=== PATIENT | male | born 1950 | race Caucasian/White ===

== ENCOUNTER 2018-07-20 19:41 | Inpatient (IN) | payer MEDICARE ==
--- NOTE | 2018-07-20 20:08 | ED ---
Extremity Problem HPI - General Chief complaint: Extremity Problem,Nontraumatic Stated complaint: R Leg Swelling/Redness Time Seen by Provider: 07/20/18 19:55 Source: patient, RN notes reviewed, old records reviewed Mode of arrival: ambulatory Limitations: no limitations - History of Present Illness Initial comments: This is a 5-year-old male the ER for evaluation. Patient coming of drainage from the right lower extremity pain in his right leg. Patient has continued symptoms currently. Symptoms for 3-4 days. States he does have severe eczema and this spreads from his eczema reaction. He has been admitted hospitalizations before. He has had episodic fever like symptoms with chills and sweating. No other significant complaints MD Complaint: extremity pain, extremity swelling, other (erythema) -: days(s) Location: right, lower extremity History of Same: Yes -: Yes fever Radiation: proximal Severity scale (1-10): 7 Quality: aching Consistency: constant Improves with: nothing Worsens with: nothing Associated Symptoms: fever, rash - Related Data Home Medications Medication Instructions Recorded Confirmed Aspirin 325 mg PO DAILY 10/21/13 07/20/18 Atorvastatin [Lipitor] 80 mg PO HS 10/21/13 07/20/18 Loperamide [Imodium] 2 mg PO DIRECTED 10/21/13 07/20/18 Metoprolol Tartrate [Lopressor] 25 mg PO BID 10/21/13 07/20/18 Nitroglycerin Sl Tabs [Nitrostat] 0.4 mg SL Q5M PRN 10/21/13 07/20/18 buPROPion SR [Wellbutrin SR] 150 mg PO BID 10/21/13 07/20/18 Sertraline [Zoloft] 50 mg PO DAILY 07/20/18 07/20/18 Allergies Allergy/AdvReac Type Severity Reaction Status Date / Time perfume Allergy Rash/Hives Verified 07/20/18 20:56 Review of Systems ROS Statement: Those systems with pertinent positive or pertinent negative responses have been documented in the HPI. ROS Other: All systems not noted in ROS Statement are negative. Past Medical History Past Medical History: Coronary Artery Disease (CAD), Chest Pain / Angina, GERD/ Reflux, Hypertension, Pneumonia Additional Past Medical History / Comment(s): CHRONIC DIARRHEA, DIVERTICULI History of Any Multi-Drug Resistant Organisms: None Reported Past Surgical History: Heart Catheterization With Stent, Hernia Repair Additional Past Surgical History / Comment(s): ARY INGUINAL HERNIA REPAIR, TENDON REPAIR RIGHT [place]ING[place], [place] 2008, STENT OCTOBER 2008, NOVEMBER 2008, JAN 2010 (STENT REPLACED),FEB 2013 Past Anesthesia/Blood Transfusion Reactions: No Reported Reaction Date of Last Stent Placement:: 02/2013 Past Psychological History: Depression Smoking Status: Former smoker Past Alcohol Use History: Occasional Past Drug Use History: None Reported General Exam Limitations: no limitations General appearance: alert, in no apparent distress Head exam: Present: atraumatic, normocephalic, normal inspection Eye exam: Present: normal appearance, PERRL, EOMI. Absent: scleral icterus, conjunctival injection, periorbital swelling ENT exam: Present: normal exam, mucous membranes moist Neck exam: Present: normal inspection. Absent: tenderness, meningismus, lymphadenopathy Respiratory exam: Present: normal lung sounds bilaterally. Absent: respiratory distress, wheezes, rales, rhonchi, stridor Cardiovascular Exam: Present: regular rate, normal rhythm, normal heart sounds. Absent: systolic murmur, diastolic murmur, rubs, gallop, clicks GI/Abdominal exam: Present: soft, normal bowel sounds. Absent: distended, tenderness, guarding, rebound, rigid Extremities exam: Present: normal inspection, full ROM, normal capillary refill , other (Vital extremity cellulitis, finally demarcated area with intense erythema with weeping). Absent: tenderness, pedal edema, joint swelling, calf tenderness Back exam: Present: normal inspection Neurological exam: Present: alert, oriented X3, CN II-XII intact Psychiatric exam: Present: normal affect, normal mood Skin exam: Present: warm, dry, intact, normal color. Absent: rash Course Vital Signs 07/20/18 19:49 Temperature 98.2 F Pulse Rate 89 Respiratory 16 Rate Blood Pressure 106/72 O2 Sat by Pulse 97 Oximetry - Reevaluation(s) Reevaluation #1: 07/20/18 21:13 Record reviewed with history of similar presentation Reevaluation #2: 07/20/18 21:13 Patient has pain control currently significant weeping of right lower extremity Medical Decision Making - Medical Decision Making 68 male the ER for evaluation, positive significant right lower leg right lower extremity cellulitis whole anterior leg. Patient is slightly demarcated areas of infection. Patient be admitted for IV antibiotics - Lab Data Result diagrams: 07/20/18 20:32 07/20/18 20:32 Lab Results 07/20/18 07/20/18 07/20/18 Range/Units 20:32 20:32 20:32 WBC 8.5 (3.8-10.6) k/uL RBC 4.73 (4.30-5.90) m/uL Hgb 14.7 (13.0-17.5) gm/dL Hct 45.3 (39.0-53.0) % MCV 95.8 (80.0-100.0) fL MCH 31.0 (25.0-35.0) pg MCHC 32.4 (31.0-37.0) g/dL RDW 13.1 (11.5-15.5) % Plt Count 259 (150-450) k/uL Neutrophils % 78 % Lymphocytes % 12 % Monocytes % 6 % Eosinophils % 3 % Basophils % 1 % Neutrophils # 6.6 (1.3-7.7) k/uL Lymphocytes # 1.0 (1.0-4.8) k/uL Monocytes # 0.5 (0-1.0) k/uL Eosinophils # 0.2 (0-0.7) k/uL Basophils # 0.1 (0-0.2) k/uL Sodium 139 (137-145) mmol/L Potassium 4.2 (3.5-5.1) mmol/L Chloride 106 (98-107) mmol/L Carbon Dioxide 25 (22-30) mmol/L Anion Gap 8 mmol/L BUN 23 H (9-20) mg/dL Creatinine 1.32 H (0.66-1.25) mg/dL Est GFR (CKD-EPI)AfAm 63 (>60 ml/min/1.73 sqM) Est GFR (CKD-EPI)NonAf 55 (>60 ml/min/1.73 sqM) Glucose 104 H (74-99) mg/dL Plasma Lactic Acid Romain 1.4 (0.7-2.0) mmol/L Calcium 10.2 (8.4-10.2) mg/dL Phosphorus 3.0 (2.5-4.5) mg/dL Magnesium 1.6 (1.6-2.3) mg/dL Total Bilirubin 0.5 (0.2-1.3) mg/dL AST 31 (17-59) U/L ALT 51 (21-72) U/L Alkaline Phosphatase 76 (38-126) U/L Total Protein 6.9 (6.3-8.2) g/dL Albumin 4.2 (3.5-5.0) g/dL Disposition Clinical Impression: Cellulitis of right leg Disposition: ADMITTED IP TO THIS HOSP Condition: Fair Is patient prescribed a controlled substance at d/c from ED?: No Referrals: Neal Knowles DO [Primary Care Provider] - 1-2 days
[2018-07-20] MEDS ORDERED: SODIUM CHLORIDE 0.9% 1,000 ML IV STA (20:23)
[2018-07-20] MEDS ORDERED: MORPHINE SULFATE 4 MG/ML SYRINGE IVP STA (20:23)
[2018-07-20] MEDS ORDERED: MORPHINE SULFATE 4 MG/ML SYRINGE IVP PRN (20:23)
[2018-07-20] MEDS ORDERED: VANCOMYCIN IV PER PHARMACY 1 EACH MISC MISCELLANE PRN (20:23)
[2018-07-20] MEDS ORDERED: VANCOMYCIN 1,500 MG in SODIUM CHLORIDE 0.9% 250 ML IVPB STA (20:33)
[2018-07-20 20:44] LABS: Basophils # (A) 0.1 k/uL (0-0.2); Basophils % (A) 1 %; Eosinophils # (A) 0.2 k/uL (0-0.7); Eosinophils % (A) 3 %; HCT 45.3 % (39.0-53.0); HGB 14.7 gm/dL (13.0-17.5); Lymphocytes % (A) 12 %; MCHC 32.4 g/dL (31.0-37.0); MCV 95.8 fL (80.0-100.0); Mean Platelet Volume 6.7; Monocytes # (A) 0.5 k/uL (0-1.0); Monocytes % (A) 6 %; Neutrophils # (A) 6.6 k/uL (1.3-7.7); Neutrophils % (A) 78 %; Platelet Count 259 k/uL (150-450); RBC 4.73 m/uL (4.30-5.90); RDW 13.1 % (11.5-15.5); WBC 8.5 k/uL (3.8-10.6)
[2018-07-20 20:57] LABS: Albumin 4.2 g/dL (3.5-5.0); Calcium 10.2 mg/dL (8.4-10.2); Magnesium 1.6 mg/dL (1.6-2.3); Potassium 4.2 mmol/L (3.5-5.1); Total Bilirubin 0.5 mg/dL (0.2-1.3); Total Protein 6.9 g/dL (6.3-8.2)
[2018-07-21] MEDS ORDERED: NITROGLYCERIN SL TABS 0.4 MG TAB SUBLINGUAL PRN (00:38)
[2018-07-21] MEDS ORDERED: LOPERAMIDE 2 MG CAP PO SCH (00:45)
[2018-07-21] MEDS: ATORVASTATIN 80 MG TAB PO SCH ×2 (01:28→21:19)
[2018-07-21] MEDS: METOPROLOL TARTRATE 25 MG TAB PO SCH ×3 (01:28→21:19)
[2018-07-21] MEDS: diphenhydrAMINE 25 MG CAP PO PRN ×3 (01:28→15:21)
[2018-07-21] MEDS: buPROPion SR 150 MG TABLET.ER PO SCH ×3 (01:28→21:19)
[2018-07-21] MEDS ORDERED: LOPERAMIDE 2 MG CAP PO PRN (01:29)
[2018-07-21] MEDS ORDERED: ENOXAPARIN 40 MG/0.4 ML SYRINGE SQ SCH (09:00)
[2018-07-21] MEDS ORDERED: ASPIRIN 325 MG TAB PO SCH (09:00)
[2018-07-21] MEDS ORDERED: VANCOMYCIN 1,250 MG in SODIUM CHLORIDE 0.9% 250 ML IVPB SCH (09:00)
[2018-07-21] MEDS: SERTRALINE 50 MG TAB PO SCH (09:16)
[2018-07-21] MEDS: diphenhydrAMINE 25 MG CAP PO SCH ×2 (17:00→21:19)
[2018-07-21] MEDS: TRIAMCINOLONE 0.1% CREAM 80 GM TUBE TOPICAL SCH ×2 (17:00→21:23)
[2018-07-21] MEDS: FAMOTIDINE 20 MG/2 ML VIAL IV SCH (17:05)
--- NOTE | 2018-07-21 17:06 | US ---
EXAMINATION TYPE: US venous doppler duplex LE RT DATE OF EXAM: 07/21/2018 4:41 PM COMPARISON: NONE CLINICAL HISTORY: r/o dvt. Right lower leg redness and swelling SIDE PERFORMED: Right TECHNIQUE: The lower extremity deep venous system is examined utilizing real time linear array sonog tobias with graded compression, doppler sonography and color-flow sonography. VESSELS IMAGED: External Iliac Vein (EIV) Common Femoral Vein Deep Femoral Vein Greater Saphenous Vein * Femoral Vein Popliteal Vein Proximal Calf Veins (* superficial vessels) Right Leg: Negative for DVT IMPRESSION: No evidence of deep venous thrombosis in the right leg.
[2018-07-21] MEDS: LACTATED RINGERS 1,000 ML IV SCH ×2 (17:09→23:30)
--- NOTE | 2018-07-21 17:21 | HP ---
HISTORY AND PHYSICAL DATE OF ADMISSION: 07/20/2018 DATE OF SERVICE: 07/21/2018 PRESENTING COMPLAINT: Right leg lesion. HISTORY OF PRESENTING COMPLAINT: This is a pleasant 68-year-old patient of Dr. Knowles whose chronic stable medical conditions include coronary artery disease with stents, GERD, hypertension, diverticulosis, depression. For about 2 weeks the patient has been having right lower extremity reaction which was gradually getting worse. It is very itchy. Denies any insect bites. Patient has pets at home, including cats, and has had them for a long time. Patient just started wearing new mela pants around the same time. There is no fever. No chills. Just a lot of itching. He also noted some swelling of the same lower extremity. REVIEW OF SYSTEMS: CONSTITUTIONAL: None. HEENT: None. RESPIRATORY: None. CARDIOVASCULAR: None. GASTROINTESTINAL: Heartburn. GENITOURINARY: None. MUSCULOSKELETAL: None. DERMATOLOGICAL: As above. LYMPHATICS: None. PSYCHIATRY: None. NEUROLOGICAL: None. Additionally, patient does have some intermittent chronic diarrhea. PAST MEDICAL HISTORY: 1. Coronary artery disease with 4 stents. 2. GERD. 3. Hypertension. 4. Chronic diarrhea. 5. Diverticulosis. 6. Depression. PAST SURGICAL HISTORY: 1. Cardiac cath with stent. 2. Bilateral inguinal hernia repair. 3. Tendon repair, right pinky finger. 4. [place] in 2008. Stenting in October and November of 2008 and January of 2010. Stent was replaced in February 2013. SOCIAL HISTORY: Patient did smoke in the past. Alcohol occasionally. Lives with his son. Retired. FAMILY HISTORY: Coronary artery disease, renal disease. HOME MEDICATIONS: 1. Aspirin 81 mg a day. 2. Wellbutrin SR 150 mg p.o. b.i.d. 3. Zoloft 50 mg p.o. daily. 4. Nitrostat 0.4 sublingually q.5 p.r.n. 5. Lopressor 25 mg p.o. b.i.d. 6. Imodium 2 mg p.o. as directed. 7. Lipitor 80 mg at bedtime. ALLERGIES: PERFUMES. PHYSICAL EXAMINATION: Temperature 98.2, pulse 59, respiration 16, blood pressure 106/72, pulse ox 97% on room air. GENERAL APPEARANCE: Average build. Lying in bed, not in distress. EYES: Pupils equal. Conjunctivae normal. HEENT: External appearance of nose and ears normal. Oral cavity normal. NECK: JVD not raised. Mass not palpable. RESPIRATORY: Effort normal. Lungs are clear. CARDIOVASCULAR: First and second sounds normal. No edema. ABDOMEN: Soft, non-tender. Liver and spleen not palpable. LYMPHATIC: No lymph node palpable in neck or axillae. PSYCHIATRY: Alert and oriented x3. Mood and affect normal. NEUROLOGICAL: Pupils equal. Cranial nerves grossly intact. Power and sensation grossly intact. EXTREMITIES: Right lower extremity has a brownish discoloration, rather demarcated from below the right knee down to just above the ankle. Also the right lower extremity is swollen. Patient has good peripheral pulses. Minimal tenderness. Minimal redness. INVESTIGATIONS: White count 8.5, hemoglobin 14.7, potassium 4.2, BUN 23, creatinine 1.32. Troponin I less than 0.012. ASSESSMENT: 1. Possible acute severe allergic reaction; could be contact dermatitis of the right lower extremity, which is very itchy, not much pain. No fever. No white count. There is some swelling. Only that patient has been wearing a new set of mela pants for the same duration, though I would also also expected other areas to be sensitive to the same. There may be an element of secondary cellulitis, but it does not appear to be the same. 2. Coronary artery disease with prior history of stent. 3. Gastroesophageal reflux disease. 4. Essential hypertension. 5. Colonic diverticulosis, asymptomatic. 6. Depression not otherwise specified. 7. Renal dysfunction. At this point it is not clear if it is acute or chronic. PLAN: Patient in the ER was started on IV ceftriaxone and vancomycin. Given the renal function, we will discontinue the vancomycin and start the patient on IV clindamycin. Will use hydrocortisone topical cream, use p.o. Benadryl and Pepcid. Will also do a Doppler ultrasound to rule out DVT in the right lower extremity, though unlikely. Home medications are resumed. Lovenox for DVT prophylaxis. ID was consulted. Care was discussed with the patient. Questions were answered. MMODL / TERELLN: [id number] /
[2018-07-21] MEDS ORDERED: CLINDAMYCIN 300 MG in DEXTROSE 5% IN WATER 50 ML IVPB SCH ×2 (18:00)
[2018-07-21 18:31] LABS: Appearance,Urine Clear (Clear); Bilirubin,Urine Negative (Negative); Blood,Urine Negative (Negative); Color,Urine Yellow; Glucose,Urine (UA) Negative (Negative); Ketones,Urine Negative (Negative); Leukocyte Esterase,Urine Negative (Negative); Nitrite,Urine Negative (Negative); PH, Urine 5.5 (5.0-8.0); Protein,Urine Negative (Negative); Specific Gravity,Urine 1.015 (1.001-1.035); Urobilinogen,Urine <2.0 mg/dL (<2.0)
[2018-07-21] MEDS: NYSTATIN 100,000UNIT/GM CREAM 30 GM TUBE TOPICAL SCH (21:19)
[2018-07-21] MEDS: ENOXAPARIN 40 MG/0.4 ML SYRINGE SQ SCH (21:21)
[2018-07-21] MEDS: ceFAZolin IN SWFI 2 GM/20 ML SYRINGE IVP SCH (23:30)
--- NOTE | 2018-07-22 07:46 | CONS ---
CONSULTATION DATE OF SERVICE: 07/21/2018. REASON FOR CONSULTATION: Right lower extremity cellulitis. HISTORY OF PRESENT ILLNESS: The patient is a 68-year-old male presented to the ER at [facility] last night with chief complaints of right leg swelling redness and itching that has been going on for more than a week now. The patient did mention that he had some problem with itching on his leg rash that he scratched. Subsequently started be becoming more swollen and red and painful. The patient describe the pain to be more of a dull aching pain 3 to 4/10, with associated severe itching to it as well. The patient did not recall using any medication soaps or detergent. Though did mention that the swelling and redness had started after he has scratched the area, no open wound or any drainage. The patient did have some chills with fever. No nausea, vomiting. No abdominal pain. No diarrhea. With these symptoms, the patient was evaluated by the ER physician. On arrival to the ER, the patient has been afebrile. His white count was significantly elevated. He did have lower extremity Doppler that was negative for DVT. The patient was started on Rocephin and vancomycin. Because of his a borderline kidney function, Vanco was discontinued. He was started on clindamycin. Infectious Disease was consulted for further recommendation regarding antibiotic therapy. REVIEW OF SYSTEMS: The positive points have been mentioned in HPI. Rest of the systems have been negative. PAST MEDICAL HISTORY: Gastroesophageal reflux disease, hypertension, pneumonia, coronary artery disease, diverticulosis. PAST SURGICAL HISTORY: PTCA with stent, hernia repair, right ring finger repair, tendon repair. SOCIAL HISTORY: Remote history of smoking. Occasionally drinks. No drug use. FAMILY HISTORY: No pertinent findings noticed. ALLERGIES: PERFUME. No known drug allergies. MEDICATION: Medications include the patient currently on aspirin, Lipitor, Wellbutrin SR, Benadryl, Lovenox, Pepcid, Imodium, Lopressor, Nitrostat, Zoloft. PHYSICAL EXAMINATION: Blood pressure 125/73 with a pulse of 60, temperature 97.3. He is 97% on room air. General description is an elderly male up in the bed in no distress. No tachypnea or accessory muscles of respiration use. HEENT: Shows no pallor or scleral icterus. Oral mucosa membranes are dry. No pharyngeal erythema or thrush. Neck: Tracheal central. No thyromegaly. Lungs unlabored breathing. Clear to auscultation anteriorly. No wheeze or crackles. Heart S1, S2. Regular rate and rhythm. ABDOMEN: Soft, no tenderness. No guarding or rigidity. Extremities: Right lower leg with diffuse erythematous rash with some scratch griffin. Currently with no open wound or any drainage, slightly warm to touch. Neurological: Patient is awake, alert, oriented times three. Mood and affect normal. LABS: Hemoglobin is 14.4, white count 8.5. BUN of 23, creatinine 1.32. DIAGNOSTIC IMPRESSION AND PLAN: 1. Patient with acute right lower extremity pain, swelling and redness started after the patient apparently scratched an area on his right leg with subsequent diffuse swelling and redness mostly involving the right anterior leg area. The possibility of however underlying cellulitis is not entirely excluded, likely from a gram- positive skin idalia such as strep, less likely MRSA infection. 2. Patient did have borderline kidney function and risk of nephrotoxicity from Vancomycin which has been discontinued. PLAN: 1. Discontinue Rocephin and clindamycin. 2. We will start the patient on cefazolin 2 g q.8 hours. 3. cream to the right leg . 4. Depending upon the clinical response as well as cultures, we will adjust the medication further if needed. Thank you for this consultation. We will follow this patient along with you. MMODL / IJN: [id number] /
[2018-07-22] MEDS ORDERED: VANCOMYCIN TROUGH DUE 1 EACH MISC MISCELLANE ONE (08:00)
[2018-07-22 09:05] LABS: Calcium 10.2 mg/dL (8.4-10.2); Potassium 4.8 mmol/L (3.5-5.1)
[2018-07-22] MEDS: ceFAZolin IN SWFI 2 GM/20 ML SYRINGE IVP SCH ×3 (09:14→23:55)
[2018-07-22] MEDS: LACTATED RINGERS 1,000 ML IV SCH ×2 (09:14→17:32)
[2018-07-22] MEDS: ASPIRIN 81 MG PO SCH (09:17)
[2018-07-22] MEDS: METOPROLOL TARTRATE 25 MG TAB PO SCH ×2 (09:17→20:11)
[2018-07-22] MEDS: SERTRALINE 50 MG TAB PO SCH (09:17)
[2018-07-22] MEDS: diphenhydrAMINE 25 MG CAP PO SCH ×3 (09:17→20:08)
[2018-07-22] MEDS: FAMOTIDINE 20 MG/2 ML VIAL IV SCH ×2 (09:18→20:08)
[2018-07-22] MEDS: NYSTATIN 100,000UNIT/GM CREAM 30 GM TUBE TOPICAL SCH ×2 (09:18→20:08)
[2018-07-22] MEDS: TRIAMCINOLONE 0.1% CREAM 80 GM TUBE TOPICAL SCH ×2 (09:18→20:08)
[2018-07-22] MEDS: buPROPion SR 150 MG TABLET.ER PO SCH ×2 (09:19→20:13)
--- NOTE | 2018-07-22 13:36 | US ---
EXAMINATION TYPE: US kidneys/renal and bladder DATE OF EXAM: 07/22/2018 COMPARISON: NONE CLINICAL HISTORY: 68-year-old male possible chronic renal failure. No symptoms per patient, CKD TECHNIQUE: Multiple sonographic images of the kidneys and bladder are obtained. FINDINGS: EXAM MEASUREMENTS: Right Kidney: 9.9 x 5.5 x 6.0 cm Left Kidney: 10.7 x 4.4 x 6.4 cm Right Kidney: No hydronephrosis. Left Kidney: No hydronephrosis. Bladder: wnl Bilateral Jets seen: yes IMPRESSION: No hydronephrosis.
--- NOTE | 2018-07-22 18:24 | PN ---
PROGRESS NOTE DATE OF SERVICE: 07/22/2018. REASON FOR FOLLOWUP: Right lower extremity cellulitis. INTERVAL HISTORY: The patient is currently afebrile. Patient is slightly feeling better. Overall pain and swelling to the right leg has slightly decreased. Currently with no open wound or any drainage. Denies having any chest pain, shortness of breath or cough. No abdominal pain or diarrhea. PHYSICAL EXAMINATION: Blood pressure 114/56 with pulse of 57, temperature 98.2. He is 96% on room air. General description is an elderly male lying in bed in no distress. Respiratory system: Unlabored breathing. Clear to auscultation anteriorly. Heart S1, S2. Regular rate and rhythm. Abdomen soft, no tenderness. Right leg did have swelling. The redness has slightly decreased in intensity. Some dry scaly skin. No drainage. LABS: BUN of 15, creatinine 1.05. Blood culture has been negative. DIAGNOSTIC IMPRESSION AND PLAN: Patient with acute right lower extremity swelling and redness with a question of possible eczematous reaction versus cellulitis, would favor cellulitis in view of the patient the area with resulting concern for the secondary infection likely from gram positive continue with Mycolog cream. Will add trever wrap to keep some of the swelling down. Continue with cefazolin while monitoring clinical course closely. Continue supportive care. MMODL / IJN: [id number] /
[2018-07-22] MEDS: ATORVASTATIN 80 MG TAB PO SCH (20:08)
[2018-07-22] MEDS: ENOXAPARIN 40 MG/0.4 ML SYRINGE SQ SCH (20:09)
--- NOTE | 2018-07-22 21:58 | PN ---
PROGRESS NOTE DATE OF SERVICE: July 22, 2018 PRESENTING COMPLAINT: Right leg lesion. INTERVAL HISTORY: This patient presented with what appears to be right lower extremity /allergic reaction with cellulitis. The patient is getting local steroid creams, IV Ancef. There is some improvement, itching a little bit better. Also getting antihistaminics. REVIEW OF SYSTEMS: Done for done for constitutional, cardiovascular, GI, pulmonary; relevant findings as above. CURRENT MEDICATIONS: Reviewed that include IV Ancef, p.o. Benadryl, Pepcid and Kenalog cream. PHYSICAL EXAMINATION: VITAL SIGNS: Temperature 98.2, pulse 67, respirations 16, blood pressure 112/66, pulse ox 96% on room air. GENERAL APPEARANCE: Lying in bed, awake. EYES: Pupils equal. Conjunctivae normal. NECK: JVD not raised. Mass not palpable. RESPIRATORY: Effort normal. LUNGS are clear. CARDIOVASCULAR: First and second sounds normal. No edema. ABDOMEN: Soft, nontender. Liver and spleen not palpable. PSYCHIATRY: Alert and oriented times three. Mood and affect normal. DERMATOLOGICAL: Discoloration of right lower extremity with some improvement. Slight decrease in edema. INVESTIGATIONS: Potassium 4.8. BUN and creatinine is normal. Blood cultures are negative till now. ASSESSMENT: 1. Acute severe allergic reaction, possibly contact dermatitis right lower extremity with secondary cellulitis with clinical response. 2. Coronary artery disease with prior history of stent. 3. Gastroesophageal reflux disease. 4. Essential hypertension. 5. Colonic diverticulosis, asymptomatic. 6. Depression, not otherwise specified. 7. Dehydration versus acute renal failure. PLAN: Continue current medication and treatment plan. Care was discussed with the patient. Encouraged to be out of bed. Repeat labs in the morning. DVT was ruled out in the right lower extremity and patient's ultrasound of the kidney was unremarkable. MMODL / IJN: [id number] /
[2018-07-23] MEDS: LACTATED RINGERS 1,000 ML IV SCH ×2 (00:06→09:13)
[2018-07-23] MEDS: ASPIRIN 81 MG PO SCH (09:12)
[2018-07-23] MEDS: buPROPion SR 150 MG TABLET.ER PO SCH ×2 (09:13→21:03)
[2018-07-23] MEDS: METOPROLOL TARTRATE 25 MG TAB PO SCH ×2 (09:13→21:03)
[2018-07-23] MEDS: ceFAZolin IN SWFI 2 GM/20 ML SYRINGE IVP SCH ×3 (09:13→23:07)
[2018-07-23] MEDS: FAMOTIDINE 20 MG TAB PO SCH ×2 (09:13→21:03)
[2018-07-23] MEDS: TRIAMCINOLONE 0.1% CREAM 80 GM TUBE TOPICAL SCH ×2 (09:13→21:05)
[2018-07-23] MEDS: SERTRALINE 50 MG TAB PO SCH (09:13)
[2018-07-23] MEDS: NYSTATIN 100,000UNIT/GM CREAM 30 GM TUBE TOPICAL SCH ×2 (09:13→21:05)
[2018-07-23] MEDS: diphenhydrAMINE 25 MG CAP PO SCH ×4 (09:19→21:03)
[2018-07-23 10:17] LABS: Basophils % (A) 0 %; Eosinophils # (A) 0.3 k/uL (0-0.7); Eosinophils % (A) 5 %; HCT 38.4 % (39.0-53.0); HGB 12.3 gm/dL (13.0-17.5); Lymphocytes # (A) 0.7 k/uL (1.0-4.8); Lymphocytes % (A) 10 %; MCH 30.8 pg (25.0-35.0); MCHC 31.9 g/dL (31.0-37.0); MCV 96.6 fL (80.0-100.0); Mean Platelet Volume 7.4; Monocytes # (A) 0.4 k/uL (0-1.0); Monocytes % (A) 5 %; Neutrophils % (A) 78 %; Platelet Count 164 k/uL (150-450); RBC 3.98 m/uL (4.30-5.90); RDW 13.1 % (11.5-15.5); WBC 6.4 k/uL (3.8-10.6)
[2018-07-23 10:26] LABS: Calcium 10.3 mg/dL (8.4-10.2); Potassium 4.7 mmol/L (3.5-5.1)
[2018-07-23] MEDS: CALAMINE/ZINC OXIDE LOTION 177 ML BTL TOPICAL SCH ×2 (13:21→21:05)
--- NOTE | 2018-07-23 16:17 | PN ---
PROGRESS NOTE DATE OF SERVICE: 07/23/2018 REASON FOR FOLLOWUP: Right lower extremity cellulitis. INTERVAL HISTORY: The patient is currently afebrile. He is breathing comfortably. Denies having any chest pain or any cough. No abdominal pain. Overall swelling and redness of the right leg have decreased. No open wound or any drainage. PHYSICAL EXAMINATION: Blood pressure 124/70 with a pulse of 64, temperature 97.6. He is 97% on room air. General description is an elderly male lying in bed in no distress. RESPIRATORY SYSTEM: Unlabored breathing. Clear to auscultation anteriorly. HEART: S1, S2. Regular rate and rhythm. ABDOMEN: Soft. No tenderness. Right leg swelling and redness slightly decreased. No drainage. LABS: Hemoglobin is 12.3, white count 6.4, BUN of 16, creatinine 1.13. DIAGNOSTIC IMPRESSION AND PLAN: Patient with right lower extremity swelling and redness with a question of possible eczematous reaction; dermatitis versus mild cellulitis. Continue local treatment with Mycolog cream and IV cefazolin. As the patient continues to improve, hopefully he can finish therapy with continuation of the Mycolog along with a short course of oral Keflex. Continue with Braden wrap to keep the swelling down. Continue supportive care. MMODL / IJN: [id number] /
[2018-07-23] MEDS: ATORVASTATIN 80 MG TAB PO SCH (21:03)
[2018-07-23] MEDS: ENOXAPARIN 40 MG/0.4 ML SYRINGE SQ SCH (21:03)
[2018-07-23] MEDS: methylPREDNISolone SOD SUCCI 125 MG/2 ML VIAL IV SCH (21:16)
--- NOTE | 2018-07-23 22:22 | PN ---
PROGRESS NOTE DATE OF SERVICE: 07/23/2018 PRESENTING COMPLAINT: Right leg rash. INTERVAL HISTORY: This patient presented with what appears to be right lower extremity allergic reaction with secondary cellulitis. Patient is getting local steroid cream and IV antibiotics. There has been some improvement. Other areas where he is scratching, including the left lower extremity, have more redness. Patient has been scratching quite a bit. Dose of antihistaminic was doubled yesterday. REVIEW OF SYSTEMS: Done for constitutional, cardiovascular, GI, pulmonary; relevant findings as above. CURRENT MEDICATIONS: Reviewed. They include IV Ancef. PHYSICAL EXAMINATION: Temperature 98, pulse 57, respiration 18, blood pressure 104/50, pulse ox 98% on room air. GENERAL APPEARANCE: Sitting up. Comfortable. EYES: Pupils equal. Conjunctivae normal. NECK: JVD not raised. Mass not palpable. RESPIRATORY: Effort normal. Lungs are clear. CARDIOVASCULAR: First and second sounds normal. No edema. ABDOMEN: Soft, non-tender. Liver and spleen not palpable. PSYCHIATRY: Alert and oriented x3. Mood and affect normal. EXTREMITIES: Right leg in a dressing. Left leg has areas of blotchy redness where he has scratched himself; also in the upper extremities. INVESTIGATIONS: White count 6.4, hemoglobin 12.3, potassium 4.7, BUN 16, creatinine 1.13. ASSESSMENT: 1. Acute severe allergic reaction, possibly contact dermatitis, right lower extremity with secondary cellulitis with some clinical response. 2. Coronary artery disease with prior history of stent. 3. Gastroesophageal reflux disease. 4. Essential hypertension. 5. Colonic diverticulosis, asymptomatic. 6. Depression not otherwise specified. 7. Acute renal failure, prerenal, improved with hydration. 8. Other areas of redness in the left lower extremity at the areas of scratching, more so like Koebner's phenomena. I discussed with Dr. Berry. At this point we decided to start the patient on IV Solu-Medrol at a heavy dose and see if that helps. Also I told the patient not to use soap on the body. I told him to wear gloves, which he is going to do, to prevent scratching, and also use calamine lotion. Will proceed from there. MMODL / IJN: [id number] /
[2018-07-24] MEDS: methylPREDNISolone SOD SUCCI 125 MG/2 ML VIAL IV SCH ×3 (05:25→20:34)
[2018-07-24] MEDS: diphenhydrAMINE 25 MG CAP PO SCH ×4 (08:15→20:35)
[2018-07-24] MEDS: FAMOTIDINE 20 MG TAB PO SCH ×2 (08:15→20:35)
[2018-07-24] MEDS: METOPROLOL TARTRATE 25 MG TAB PO SCH ×2 (08:15→20:34)
[2018-07-24] MEDS: ASPIRIN 81 MG PO SCH (08:15)
[2018-07-24] MEDS: SERTRALINE 50 MG TAB PO SCH (08:16)
[2018-07-24] MEDS: buPROPion SR 150 MG TABLET.ER PO SCH ×2 (08:16→20:35)
[2018-07-24] MEDS: ceFAZolin IN SWFI 2 GM/20 ML SYRINGE IVP SCH ×2 (08:16→15:06)
[2018-07-24] MEDS: CALAMINE/ZINC OXIDE LOTION 177 ML BTL TOPICAL SCH ×2 (08:17→20:35)
[2018-07-24] MEDS: TRIAMCINOLONE 0.1% CREAM 80 GM TUBE TOPICAL SCH ×2 (08:17→20:36)
[2018-07-24] MEDS: NYSTATIN 100,000UNIT/GM CREAM 30 GM TUBE TOPICAL SCH ×2 (08:17→20:36)
[2018-07-24 09:11] LABS: Calcium 10.7 mg/dL (8.4-10.2); Potassium 4.8 mmol/L (3.5-5.1)
[2018-07-24] MEDS: ENOXAPARIN 40 MG/0.4 ML SYRINGE SQ SCH (20:34)
[2018-07-24] MEDS: ATORVASTATIN 80 MG TAB PO SCH (20:35)
[2018-07-24] MEDS ORDERED: DOXYCYCLINE 100 MG CAP PO SCH (21:00)
--- NOTE | 2018-07-25 00:43 | PN ---
PROGRESS NOTE DATE OF SERVICE: 07/24/2018. REASON FOR FOLLOW UP: Question of right lower extremity cellulitis with generalized rash. INTERVAL HISTORY: The patient is currently afebrile. The right leg swelling and redness has decreased. However, the patient now has generalized maculopapular rash involving the left leg as well as trunk. The patient denies any difficulty swallowing, difficulty breathing, or any swelling and did not recall if the patient is starting any new medication. PHYSICAL EXAMINATION: Blood pressure 128/66 with a pulse of 80, temperature 98.7. He is 97% on room air. General description is an elderly male up in the bed in no distress. Respiratory system: Unlabored breathing. Clear to auscultation anteriorly. Heart S1, S2. Regular rate and rhythm. Abdomen soft. No tenderness. On the examination of the skin area shows maculopapular rash currently with no blisters or bullae formation or any cellulitis. LABS: Hemoglobin is 12.3, white count 6.4 with a BUN of 18, creatinine 1.06. DIAGNOSTIC IMPRESSION/PLAN: Patient admitted to the hospital with a right lower extremity cellulitis that was mostly generalized specific to the right leg area in this patient who however, now developing a generalized maculopapular rash more likely drug related versus other etiology. Dermatology has been consulted. Cefazolin will be discontinued. Currently on Solu-Medrol, transition to prednisone. Will monitor clinical course closely. Plan of care was discussed with the admitting physician. ARVIND / PAULETTE: [id number] /
--- NOTE | 2018-07-25 02:34 | PN ---
PROGRESS NOTE DATE OF SERVICE: July 24, 2018. PRESENTING COMPLAINT: Rash. INTERVAL HISTORY: This patient presented with what appeared to be allergic reaction primary to the right lower extremity and some possibly cellulitis, but the patient's rash is also now present on the left leg in the back. Discussed with Dr. Berry earlier today. Plan was discontinue with the antibiotics. Also to reduce the dose of steroids. Overall, patient is feeling better. Plan is now to consult Dermatology. REVIEW OF SYSTEMS: Done for constitutional, cardiovascular, GI, pulmonary, dermatological, relevant findings as above. Rash also present in the back and left lower extremity, especially where the patient can scratch. CURRENT MEDICATIONS: Reviewed. Antibiotics were discontinued. The patient is on IV Solu-Medrol, calamine lotion, Benadryl. PHYSICAL EXAMINATION: VITAL SIGNS: Temperature 98.7, pulse 83, respiratory rate 16, blood pressure 128/66. Pulse ox 97% on room air. GENERAL APPEARANCE: Sitting up, comfortable. EYES: Pupils equal. Conjunctivae normal. NECK: JVD not raised. Mass not palpable. RESPIRATORY: Effort normal. LUNGS are clear. CARDIOVASCULAR: 1st and 2nd sounds normal. No edema. ABDOMEN: Soft, nontender. Liver and spleen not palpable. DERMATOLOGICAL: Right leg in a dressing. Blotchy redness present in the left lower extremity and also in the back. INVESTIGATIONS: Potassium 4.8. BUN and creatinine is normal. ASSESSMENT: 1. Diffuse rash, appears to be allergic reaction. Also unclear if this is some sort of a Kobner's phenomena. 2. Secondary cellulitis appears to be less likely, after discussion with Dr. Berry, this has been discontinued the antibiotic. 3. Coronary artery disease with prior history of stent. 4. Gastroesophageal reflux disease. 5. Essential hypertension. 6. Colonic diverticulosis asymptomatic. 7. Depression, not otherwise specified. 8. Acute renal failure, prerenal, that is improved. PLAN: The patient's IV Solu-Medrol will be changed over to oral prednisone. We will consult Dermatology. Antibiotics have been discontinued. Follow. MMODL / IJN: [id number] /
[2018-07-25] MEDS: METOPROLOL TARTRATE 25 MG TAB PO SCH (08:28)
[2018-07-25] MEDS: ASPIRIN 81 MG PO SCH (08:28)
[2018-07-25] MEDS: FAMOTIDINE 20 MG TAB PO SCH (08:28)
[2018-07-25] MEDS: buPROPion SR 150 MG TABLET.ER PO SCH (08:28)
[2018-07-25] MEDS: SERTRALINE 50 MG TAB PO SCH (08:28)
[2018-07-25] MEDS: diphenhydrAMINE 25 MG CAP PO SCH ×2 (08:28→12:00)
[2018-07-25] MEDS: NYSTATIN 100,000UNIT/GM CREAM 30 GM TUBE TOPICAL SCH (08:28)
[2018-07-25] MEDS: TRIAMCINOLONE 0.1% CREAM 80 GM TUBE TOPICAL SCH (08:28)
[2018-07-25] MEDS: CALAMINE/ZINC OXIDE LOTION 177 ML BTL TOPICAL SCH (08:28)
[2018-07-25 08:30] LABS: Calcium 10.2 mg/dL (8.4-10.2); Potassium 4.4 mmol/L (3.5-5.1)
[2018-07-25] MEDS ORDERED: predniSONE 20 MG TAB PO SCH (09:00)
--- NOTE | 2018-07-25 13:35 | PN ---
PROGRESS NOTE DATE OF SERVICE: 07/25/2018 REASON FOR FOLLOWUP: Generalized maculopapular rash likely drug rash. INTERVAL HISTORY: The patient is currently afebrile. The patient is breathing comfortably. He denies any worsening of a rash compared to yesterday. No significant itching has been noticed. lotion and steroid the patient is on. No nausea, no vomiting. No abdominal pain. No diarrhea. PHYSICAL EXAMINATION: On examination, blood pressure is 145/67 with the pulse of 75, temperature 97.6. He is 99% on room air. General description is an elderly male up in the chair in no distress. RESPIRATORY SYSTEM: Unlabored breathing, clear to auscultation anteriorly. HEART: S1, S2. Regular rate and rhythm. ABDOMEN: Soft. SKIN EXAMINATION: Rash mostly decreased in intensity. No new rash or any blister formation. LABS: BUN of 25, creatinine is 1.07. Culture has been negative. DIAGNOSTIC IMPRESSION AND PLAN: Patient initially admitted to the hospital with right lower extremity rash and concern for cellulitis, now developing rash on the left as well as trunk area with concern for likely drug rash. The patient is currently on steroid therapy transition to oral. Continue with calamine lotion. Patient to follow up with Dermatology this Monday. Plan of care discussed with the admitting physician on the phone. Continue supportive care. MMODL / IJN: [id number] /
[2018-07-25 14:52] VITALS: BP 138/77; PULSE 67; RESP 20; TEMP 98
--- NOTE | 2018-07-26 07:21 | DS ---
DISCHARGE SUMMARY DATE OF ADMISSION: 07/20/2018 DATE OF DISCHARGE: 07/25/2018 FINAL DIAGNOSES: 1. Acute allergic reaction, primarily affecting the right leg and some also affecting the rest of the body could be a part of "Koebner's phenomena. 2. Secondary cellulitis, felt to be less likely. Antibiotics discontinued. 3. Coronary artery disease, prior history of stent. 4. Gastroesophageal reflux disease. 5. Essential hypertension. 6. Colonic diverticulosis, asymptomatic. 7. Depression, not otherwise specified. 8. Acute renal failure, prerenal, that is improved. HOSPITAL COURSE: This patient presented with a rash primary to the right lower extremity some other parts of the body too. Initially was given antibiotics as this was felt to be also cellulitic component, but treated with topical steroids and also IV steroids. 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 The patient will see Dermatology as an outpatient in 2 days time. The patient is told not to scratch himself. CONSULTATIONS: Dr. Berry from Infectious Disease. PHYSICAL EXAMINATION: On examination, temperature 98, pulse 67, respiration 20, blood pressure 138/77, pulse ox 98% on room air. LUNGS: Fair entry. Rash in the right lower extremity is improved. Redness which is blotchy, present on the left lower extremity and the back improving. INVESTIGATION: Potassium 4.4, creatinine 1.07. DISCHARGE MEDICATIONS: 1. Aspirin 81 mg a day. 2. Lipitor 80 mg q.h.s. 3. Imodium 2 mg p.r.n. 4. Lopressor 25 p.o. b.i.d. 5. Nitrostat 0.4 sublingual q.5 p.r.n. 6. Wellbutrin SR 150 mg p.o. b.i.d. 7. Zoloft 50 mg daily. 8. Calamine lotion topical b.i.d. 9. Kenalog 0.1% topical b.i.d. to the right leg. 10.Benadryl 25 mg q.6 p.r.n. 11.Prednisone taper. Follow up with Dr. Carlos Jerome on 07/27/2018. Follow up with Dr. Knowles on 07/30/2018. Discussion and discharge planning more than 35 minutes. MMODL / IJN: [id number] /
== END 2018-07-25 16:07 | disposition home health service (06) | DRG 607 ==
LOC: EC 19:41 → 4MS4W 21:16
PROVIDERS: ADMIT Hospitalist; ATTEND Hospitalist
DX: L27.0 Generalized skin eruption due to drugs and medicaments taken internally (principal); N17.9 Acute kidney failure, unspecified; Q81.8 Other epidermolysis bullosa; F32.9 Major depressive disorder, single episode, unspecified; I10 Essential (primary) hypertension; I25.10 Atherosclerotic heart disease of native coronary artery without angina pectoris; I25.2 Old myocardial infarction; K21.9 Gastro-esophageal reflux disease without esophagitis; K57.30 Diverticulosis of large intestine without perforation or abscess without bleeding; K52.9 Noninfective gastroenteritis and colitis, unspecified; Z79.82 Long term (current) use of aspirin; Z79.899 Other long term (current) drug therapy; Z87.891 Personal history of nicotine dependence; Z95.5 Presence of coronary angioplasty implant and graft; Z87.01 Personal history of pneumonia (recurrent); Z82.49 Family history of ischemic heart disease and other diseases of the circulatory system
CPT/HCPCS: 36415; 76770; 80048; 80053; 81003; 83605; 83735; 84100; 84484; 85025; 87040; 93005; 96365; 96375; 99284; 99285

== ENCOUNTER → 2019-06-28 | Outpatient (CLI) | payer MEDICARE ==
--- NOTE | 2019-06-28 10:48 | XR ---
EXAMINATION TYPE: XR chest 2V DATE OF EXAM: 06/28/2019 COMPARISON: 02/21/2013 TECHNIQUE: PA and lateral views submitted. HISTORY: Cough and congestion FINDINGS: Subsegmental changes at both lung bases. Hyperinflation suggests COPD. No overt failure. Heart size s table. Hypertrophic and degenerative change of the spine. No overt failure. IMPRESSION: 1. COPD with bilateral lower lobe infiltrate or atelectasis. Findings on the right are new compared t o the prior exam. Follow to resolution recommended. Correlate clinically.
== END | disposition home or self-care (01) ==
LOC: RADXRMAIN 10:28
PROVIDERS: ATTEND Family Medicine
DX: J98.11 Atelectasis (principal)
CPT/HCPCS: 71046

== ENCOUNTER → 2019-07-18 | Outpatient (CLI) | payer MEDICARE ==
--- NOTE | 2019-07-18 10:00 | XR ---
EXAMINATION TYPE: XR chest 2V DATE OF EXAM: 07/18/2019 COMPARISON: Chest x-ray July 18, 2019. HISTORY: COPD. TECHNIQUE: Frontal and lateral views of the chest are obtained. FINDINGS: There is background chronic emphysematous change with left greater than right bibasilar kali ear scarring and/or atelectasis. There is no pleural effusion or pneumothorax seen. The cardiac alejandro houette size remains within normal limits. Coronary artery stent in the proximal left circumflex dist ribution redemonstrated. The osseous structures are intact. IMPRESSION: Patchy left greater than right bibasilar linear scarring and/or atelectasis.
== END | disposition home or self-care (01) ==
LOC: RADXRMAIN 09:30
PROVIDERS: ATTEND Family Medicine
DX: J44.9 Chronic obstructive pulmonary disease, unspecified (principal)
CPT/HCPCS: 71046

== ENCOUNTER → 2019-12-13 | Outpatient (CLI) | payer MEDICARE ==
--- NOTE | 2019-12-13 13:20 | XR ---
EXAMINATION TYPE: XR chest 2V DATE OF EXAM: 12/13/2019 CLINICAL HISTORY: Abnormal lung findings TECHNIQUE: Frontal and lateral views of the chest are obtained. COMPARISON: Chest radiograph 07/18/2019 FINDINGS: The lungs are hyperexpanded. The cardiomediastinal silhouette is within normal limits for size. Pulmonary vasculature is normal. There is no focal air space opacity, pleural effusion, or pneu mothorax seen. There is a left basilar linear redemonstrated opacity likely atelectasis or scar. Ther e is also linear subsegmental atelectasis of the right lung base and left midlung. The osseous struct ures are intact. IMPRESSION: Areas of thinning linear subsegmental atelectasis versus scarring as above, for which no additional follow-up is indicated.
== END ==
LOC: RADXRMAIN 10:01
PROVIDERS: ATTEND Family Medicine
DX: R91.8 Other nonspecific abnormal finding of lung field (principal)
CPT/HCPCS: 71046

== ENCOUNTER → 2022-03-05 | Outpatient (CLI) | payer MEDICARE ==
--- NOTE | 2022-03-05 16:04 | MR ---
EXAMINATION TYPE: MR brain wo con DATE OF EXAM: 03/05/2022 3:18 PM COMPARISON: CT brain 01/28/2010. CLINICAL INDICATION:Male, 72 years old with history of gait abnormality; PHH, TECHNIQUE: Multi planar, multi sequence imaging was performed through the brain including: T1, T2, In version recovery, Diffusion weighted imaging, and gradient echo imaging. No gadolinium was given. FINDINGS: The herrera-white junctions, ventricular system, and cisterns appear unremarkable. Patchy areas of high T2 signal intensity are seen within the periventricular white matter. Remote lacunar injury within t he right caudate nucleus (series 401, image 20). Midline structures show no abnormality. Diffusion-we ighted imaging shows no evidence of restricted diffusion. The bone marrow signal is within normal limits. The globes are unremarkable. Minimal mucosal thickeni ng and retained secretions within the bilateral maxillary sinuses, left greater than right. Mild muco chauncey thickening of the ethmoid sinuses bilaterally. IMPRESSION: 1. No evidence of intracranial mass or acute/subacute infarct. 2. Remote right caudate lacunar injury. 3. Nnonspecific white matter changes, likely secondary to small vessel ischemic disease.
== END | disposition home or self-care (01) ==
LOC: RADMRIMAIN 14:10
PROVIDERS: ATTEND Nurse Practitioner Family
DX: I63.81 Other cerebral infarction due to occlusion or stenosis of small artery (principal); R26.9 Unspecified abnormalities of gait and mobility
CPT/HCPCS: 70551

== ENCOUNTER → 2022-03-09 | Outpatient (CLI) | payer MEDICARE ==
--- NOTE | 2022-03-09 11:56 | US ---
EXAMINATION TYPE: US carotid duplex BILAT DATE OF EXAM: 03/09/2022 COMPARISON: NONE CLINICAL HISTORY: R55 SYNCOPE. TECHNIQUE: Carotid duplex ultrasound examination. Indirect Doppler criteria was utilized. FINDINGS: EXAM MEASUREMENTS: RIGHT: Peak Systolic Velocity (PSV) cm/sec ----- Right CCA: 69.3 ----- Right ICA: 107.0 ----- Right ECA: 105.0 ICA/CCA ratio: 1.5 RIGHT: End Diastole cm/sec ----- Right CCA: 13.1 ----- Right ICA: 35.3 ----- Right ECA: 10.3 LEFT: Peak Systolic Velocity (PSV) cm/sec ----- Left CCA: 64.7 ----- Left ICA: 92.8 ----- Left ECA: 99.0 ICA/CCA ratio: 1.4 LEFT: End Diastole cm/sec ----- Left CCA: 15.6 ----- Left ICA: 40.9 ----- Left ECA: 8.6 VERTEBRALS (direction of flow): Right Vertebral: Antegrade Left Vertebral: Antegrade Rhythm: Arrhythmia No significant stenosis . Mild atherosclerotic calcification of the bilateral carotid bulbs. IMPRESSION: Mild bilateral atherosclerotic calcification of the carotid bulbs with no hemodynamically significant stenosis. Criteria for Assigning % of Stenosis / Diameter reduction (Estimation based on the indirect measurements of the internal carotid artery velocities (ICA PSV). 1. Normal (no stenosis)=ICA PSV < 125 cm/s: ratio < 2.0: ICA EDV<40 cm/s. 2. Less than 50% stenosis=ICA PSV < 125 cm/s: ratio < 2.0: ICA EDV<40 cm/s. 3. 50 to 69% stenosis=ICA PSV of 125 to 230 cm/s: ration 2.0 ? 4.0: ICA EDV 40-100 cm/s. 4. Greater than 70% stenosis to near occlusion= ICA PSV > 230 cm/s: ratio > 4.0: ICA EDV > 100 cm/s. 5. Near occlusion= ICA PSV velocities may be low or undetectable: variable ratio and ICA EDV. 6. Total occlusion=unable to detect flow.
== END | disposition home or self-care (01) ==
LOC: RADUSWWP 10:56
PROVIDERS: ATTEND Family Medicine
DX: I65.23 Occlusion and stenosis of bilateral carotid arteries (principal)
CPT/HCPCS: 93880

== ENCOUNTER 2022-03-11 08:23 | Inpatient (IN) | payer MEDICARE ==
[2022-03-11] MEDS ORDERED: DIPH,PERTUS(ACELL)TETVAC-LF 0.5 ML VIAL IM ONE (08:50)
--- NOTE | 2022-03-11 08:58 | ED ---
Fall HPI <Nohemi Monaco - Last Filed: 03/11/22 11:30> - General Source: patient, EMS, old records reviewed Mode of arrival: EMS - History of Present Illness MD Complaint: fall <AlbertoYvon - Last Filed: 03/11/22 12:54> - General Chief Complaint: Fall Stated Complaint: Fall Time Seen by Provider: 03/11/22 08:30 - History of Present Illness Initial Comments: 72-year-old male recent history of vertigo he's been being evaluated by his doctor outpatient which included an MRI. He states he fell twice today initial report he fell down stairs but he denies falling down stairs he fell in his room. Complains of left eyebrow and head pain some neck pain also complains of hip pain low back pain question will numbness to his lower extremities additionally he complains of bilateral ankle and foot pain. He denies any loss of function to any of the extremities. (Yvon Dominguez) - Related Data Home Medications Medication Instructions Recorded Confirmed Aspirin 81 mg PO DAILY 10/21/13 03/11/22 Atorvastatin [Lipitor] 80 mg PO HS 10/21/13 03/11/22 Metoprolol Tartrate [Lopressor] 25 mg PO DAILY 10/21/13 03/11/22 Nitroglycerin Sl Tabs [Nitrostat] 0.4 mg SL Q5M PRN 10/21/13 03/11/22 Esomeprazole Magnesium [NexIUM] 40 mg PO DAILY 03/11/22 03/11/22 Ketoconazole 2% Shampoo [Nizoral] 1 applic TOPICAL DAILY PRN 03/11/22 03/11/22 Multivit-Min/FA/Lycopen/Lutein 1 tab PO DAILY 03/11/22 03/11/22 [Centrum Silver Men Tablet] Tamsulosin HCl [Flomax] 0.4 mg PO DAILY 03/11/22 03/11/22 Triamcinolone 0.1% Ointment 1 applic TOPICAL Q48H PRN 03/11/22 03/11/22 [Kenalog 0.1% Ointment] buPROPion HCL [Wellbutrin SR] 200 mg PO BID 03/11/22 03/11/22 hydrALAZINE HCL [Apresoline] 25 mg PO DAILY 03/11/22 03/11/22 metroNIDAZOLE 0.75% CREAM 1 applic TOPICAL DAILY PRN 03/11/22 03/11/22 [Metrocream 0.75%] Allergies Allergy/AdvReac Type Severity Reaction Status Date / Time perfume Allergy Rash/Hives Verified 03/11/22 12:20 Review of Systems ROS Other: All systems not noted in ROS Statement are negative. <JacindaNohemi - Last Filed: 03/11/22 11:30> ROS Other: All systems not noted in ROS Statement are negative. <Yvon Dominguez - Last Filed: 03/11/22 12:54> ROS Statement: Those systems with pertinent positive or pertinent negative responses have been documented in the HPI. Past Medical History Past Medical History: Coronary Artery Disease (CAD), Chest Pain / Angina, GERD/Reflux, Hypertension, Myocardial Infarction (ID), Pneumonia Additional Past Medical History / Comment(s): Chronic diarrhea, diverticuli, ID 2008 Last Myocardial Infarction Date:: 2008 History of Any Multi-Drug Resistant Organisms: None Reported Past Surgical History: Heart Catheterization With Stent, Hernia Repair Additional Past Surgical History / Comment(s): Bilateral inguinal hernia repair, tendon repair right pinky finger, stent October 2008, November 2008, 2009 (stent replaced), 2012. Past Anesthesia/Blood Transfusion Reactions: No Reported Reaction Date of Last Stent Placement:: 02/2013 Past Psychological History: Depression Smoking Status: Former smoker Past Alcohol Use History: Occasional Past Drug Use History: None Reported - Past Family History Father Family Medical History: Coronary Artery Disease (CAD), Deep Vein Thrombosis (DVT), Renal Disease Additional Family Medical History / Comment(s): Dad's side of the family had blood clots. Mother Family Medical History: Diabetes Mellitus Additional Family Medical History / Comment(s): Hepatitis B Brother(s) Family Medical History: CVA/TIA, Renal Disease Additional Family Medical History / Comment(s): HIV <Yvon Dominguez - Last Filed: 03/11/22 12:54> General Exam Limitations: no limitations General appearance: alert, anxious Head exam: Present: normocephalic, other (Evidence of abrasion and ecchymosis and superficial laceration over left eyebrow no active bleeding at this time no step-off or crepitation) ENT exam: Present: mucous membranes dry Neck exam: Present: normal inspection, other (Cervical collar in place no stri nelson JVD or bruits mild tenderness palpation along the lateral neck musculature no spinous process tenderness) Respiratory exam: Present: normal lung sounds bilaterally. Absent: respiratory distress, wheezes, rales, rhonchi, stridor Cardiovascular Exam: Present: regular rate, normal rhythm, normal heart sounds. Absent: systolic murmur, diastolic murmur, rubs, gallop, clicks GI/Abdominal exam: Present: soft, normal bowel sounds. Absent: distended, tenderness, guarding, rebound, rigid, bruit, pulsatile mass Rectal exam: Present: deferred Extremities exam: Present: full ROM, tenderness, normal capillary refill, other (Ecchymosis seen over the feet is abrasion bilaterally with a few contusions or abrasions edema to the left lateral malleolus. No definitive step-off or crepitation.) Back exam: Present: normal inspection, tenderness (No spinous process tenderness) Neurological exam: Present: alert, oriented X3, CN II-XII intact Psychiatric exam: Present: normal affect, normal mood Skin exam: Present: warm, dry. Absent: intact <Yvon Dominguez - Last Filed: 03/11/22 12:54> - General Exam Comments Initial Comments: This a well-developed well-nourished awake alert oriented 4 male [place] Coma Scale of 15 he does have a cervical collar on. (Yvon Dominguez) Course Vital Signs 03/11/22 08:24 Temperature 97.0 F L Pulse Rate 81 Respiratory 16 Rate Blood Pressure 135/76 O2 Sat by Pulse 98 Oximetry Procedures - Laceration Laceration #1 Consent Obtained: verbal consent Indication: laceration Site: other (left eyebrow) Size (cm): 1 Description: linear Depth: simple, single layer Patient Tolerated Procedure: well, no complications <Nohemi Monaco - Last Filed: 03/11/22 11:30> - Laceration Laceration #1 Additional Comments: well approximated with exofin (Nohemi Monaco) Medical Decision Making - Lab Data Result diagrams: 03/11/22 08:51 03/11/22 08:51 <Nohemi Monaco - Last Filed: 03/11/22 11:30> - Lab Data Result diagrams: 03/11/22 08:51 03/11/22 08:51 - EKG Data -: EKG Interpreted by Me <Yvon Dominguez - Last Filed: 03/11/22 12:54> - Medical Decision Making Did discuss findings with the patient also with , patient will be admitted for inpatient evaluation and treatment frequent falls. Thrive dehydration and hypomagnesemia chronic atrial fibrillation. MRI done recently showed no acute processes there is some evidence of remote right caudate lacunar injury (Yvon Dominguez) - Lab Data Lab Results 03/11/22 03/11/22 03/11/22 Range/Units 08:51 08:51 08:51 WBC 10.0 (3.8-10.6) k/uL RBC 3.72 L (4.30-5.90) m/uL Hgb 11.6 L (13.0-17.5) gm/dL Hct 34.8 L (39.0-53.0) % MCV 93.6 (80.0-100.0) fL MCH 31.3 (25.0-35.0) pg MCHC 33.5 (31.0-37.0) g/dL RDW 13.3 (11.5-15.5) % Plt Count 157 (150-450) k/uL MPV 8.7 Neutrophils % 89 % Lymphocytes % 6 % Monocytes % 4 % Eosinophils % 1 % Basophils % 0 % Neutrophils # 8.9 H (1.3-7.7) k/uL Lymphocytes # 0.6 L (1.0-4.8) k/uL Monocytes # 0.4 (0-1.0) k/uL Eosinophils # 0.1 (0-0.7) k/uL Basophils # 0.0 (0-0.2) k/uL Sodium 141 (137-145) mmol/L Potassium 3.9 (3.5-5.1) mmol/L Chloride 110 H (98-107) mmol/L Carbon Dioxide 22 (22-30) mmol/L Anion Gap 9 mmol/L BUN 16 (9-20) mg/dL Creatinine 1.05 (0.66-1.25) mg/dL Est GFR (CKD-EPI)AfAm 81 (>60 ml/min/1.73 sqM) Est GFR (CKD-EPI)NonAf 70 (>60 ml/min/1.73 sqM) Glucose 144 H (74-99) mg/dL Calcium 9.5 (8.4-10.2) mg/dL Magnesium 1.3 L (1.6-2.3) mg/dL Total Bilirubin 0.6 (0.2-1.3) mg/dL AST 52 (17-59) U/L ALT 79 H (4-49) U/L Alkaline Phosphatase 88 (38-126) U/L Creatine Kinase 220 H (55-170) U/L Troponin I 0.015 (0.000-0.034) ng/mL Total Protein 5.7 L (6.3-8.2) g/dL Albumin 3.8 (3.5-5.0) g/dL Lipase 69 (23-300) U/L Serum Alcohol <10 mg/dL - EKG Data EKG Comments: Atrial fibrillation rate 82 QRS duration 98 QT since QTC 388/[address]-T wave changes (Yvon Dominguez) Disposition <Nohemi Monaco - Last Filed: 03/11/22 11:30> Decision Date: 03/11/22 Decision Time: 12:00 <Yvon Dominguez - Last Filed: 03/11/22 12:54> Clinical Impression: Fall, Dehydration, Hypomagnesemia syndrome, Failure to thrive Disposition: ADMITTED IP TO THIS [facility] Condition: Stable Referrals: Neal Knowles DO [Primary Care Provider] - 1-2 days
[2022-03-11 09:01] LABS: Basophils % (A) 0 %; Eosinophils # (A) 0.1 k/uL (0-0.7); Eosinophils % (A) 1 %; HCT 34.8 % (39.0-53.0); HGB 11.6 gm/dL (13.0-17.5); Lymphocytes # (A) 0.6 k/uL (1.0-4.8); Lymphocytes % (A) 6 %; MCH 31.3 pg (25.0-35.0); MCHC 33.5 g/dL (31.0-37.0); MCV 93.6 fL (80.0-100.0); Mean Platelet Volume 8.7; Monocytes # (A) 0.4 k/uL (0-1.0); Monocytes % (A) 4 %; Neutrophils # (A) 8.9 k/uL (1.3-7.7); Neutrophils % (A) 89 %; Platelet Count 157 k/uL (150-450); RBC 3.72 m/uL (4.30-5.90); RDW 13.3 % (11.5-15.5)
[2022-03-11 09:14] LABS: ALT 79 U/L (4-49); AST 52 U/L (17-59); African American GFR (CKD) 81 (>60 ml/min/1.73 sqM); Albumin 3.8 g/dL (3.5-5.0); Alcohol <10 mg/dL; Alkaline Phosphatase 88 U/L (38-126); Anion Gap 9 mmol/L; Blood Urea Nitrogen 16 mg/dL (9-20); Calcium 9.5 mg/dL (8.4-10.2); Carbon Dioxide 22 mmol/L (22-30); Chloride 110 mmol/L (98-107); Creatine Kinase 220 U/L (55-170); Glucose 144 mg/dL (74-99); Lipase 69 U/L (23-300); Magnesium 1.3 mg/dL (1.6-2.3); Non-African American GFR(CKD) 70 (>60 ml/min/1.73 sqM); Potassium 3.9 mmol/L (3.5-5.1); Sodium 141 mmol/L (137-145); Total Bilirubin 0.6 mg/dL (0.2-1.3); Total Protein 5.7 g/dL (6.3-8.2)
--- NOTE | 2022-03-11 10:06 | CT ---
EXAMINATION TYPE: CT lumbar spine wo con DATE OF EXAM: 03/11/2022 COMPARISON: None HISTORY: 72-year-old male Fall, neck and back pain TECHNIQUE: Contiguous axial scanning of the lumbar spine without IV contrast. Coronal and sagittal re constructions performed. CT DLP: 850.5 mGycm Automated exposure control for dose reduction was used. FINDINGS: Extensive lobulated fusiform aneurysms throughout the abdominal aorta. There is a right lateral saccu lar aneurysm at the thoracoabdominal junction measuring 1.7 cm. Overall transverse caliber of the aor ta here is 3.8 cm. Mid abdominal aortic caliber is 3.3 cm. Neither saccular aneurysm right lateral in frarenal abdominal aorta measuring 2.5 cm with overall transverse caliber of the aorta 3.9 cm here. S hort segment fusiform aneurysm distal abdominal aorta has a caliber of 3.1 cm. Moderate atherosclerot ic calcifications are present throughout. Sigmoid diverticulosis. Small parapelvic cyst suggested in both kidneys with scattered nonobstructive renal calculi measuring up to 3 mm. There is DISH in the lower thoracic and upper lumbar spine down to the L2 level. Moderate multilevel discogenic degenerative change. Hypertrophic facet arthropathy especially mid to lower lumbar spine. Vertebral body heights are preserved. Degenerative trace grade 1 anterolisthesis L3-L4. Remaining ali gnment is maintained. At L2-L3, there is a large broad-based disc bulge which may contribute to a moderate to severe spinal canal stenosis. Moderate bilateral neuroforaminal stenosis. At L3-L4, facet arthropathy with trace grade 1 anterolisthesis. There is a broad-based disc osteophyt e complex contributing to a mild overall spinal canal stenosis. Mild bilateral neuroforaminal stenosi s. At L4-L5, diffuse disc bulge and hypertrophic facet arthropathy. No significant spinal canal stenosis . Mild to moderate bilateral neuroforaminal stenosis. At L5-S1, facet arthropathy. No significant spinal canal stenosis. Mild bilateral neuroforaminal sten osis. Some degenerative bony ankylosis at the left SI joint. There is also some chronic endplate ankylosis at L5-S1. IMPRESSION: 1. NOTE EXTENSIVE LOBULATED FUSIFORM ANEURYSMS THROUGHOUT THE ABDOMINAL AORTA MEASURING UP TO 3.9 CM IN DIAMETER. A couple saccular aneurysms also project off the right lateral aspect, largest measuring 2.5 cm. 2. 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 Degenerative end plate ankylosis at L5-S1 and additional degenerative ankylosis at the left SI joint. 3. No acute fracture seen. There is degenerative trace grade 1 anterolisthesis at L3-L4. 4. Moderate multilevel degenerative disc disease. Advanced hypertrophic facet arthropathy throughout. 5. Changes contribute to a moderate to severe spinal canal stenosis at L2-L3. Mild overall spinal can al stenosis at L3-L4. 6. Variable mild to moderate bilateral neuroforaminal stenoses as outlined above.
--- NOTE | 2022-03-11 10:13 | CT ---
EXAMINATION TYPE: CT brain cspine wo con DATE OF EXAM: 03/11/2022 COMPARISON: Brain 01/28/2010 HISTORY: 72-year-old male Fall, back pain, neck pain CT DLP: 1425.9 mGycm Automated exposure control for dose reduction was used. Technique: Examination of the head was done in axial plane without intravenous contrast. Coronal and sagittal reconstructions performed. CT of the cervical spine was obtained in axial plane without intravenous injection of contrast mater ial. Coronal and sagittal reformatted images were obtained from the axial views for evaluation of f ractures, spinal alignment and canal. FINDINGS: Head: There is no evidence of acute intracranial hemorrhage, acute ischemic changes, mass, mass-effect, or extra-axial fluid collection. There is no effacement of cerebral sulci or basal subarachnoid cister ns. There is no hydrocephalus. There is no midline shift. Marcano-white matter distinction is preserv ed. Mild generalized volume loss overlying the cerebral convexities. Old lacunar infarct right caudate he ad. Mild patchy periventricular white matter hypodensities. Moderate mucosal thickening throughout th e ethmoid air cells. There appears to be a 1.6 cm probable polyp within the left nasal cavity. Mastoi d air cells are well pneumatized. Orbits and globes are intact. No calvarial fracture. Some possible scarring versus a mild left lateral scalp hematoma. Cervical spine: Degenerative change left cervico-occipital articulation. Some degenerative change at the C1 dens flynn culation as well. No predental space widening or prevertebral soft tissue swelling. There is hypertrophic facet and uncovertebral joint arthropathy throughout. Degenerative grade 1 anterolisthesis C3-C4, C4-C5, C5-C6, and C7-T1. Mild disc bulge at C3-C4 may con tribute to mild narrowing of the spinal canal. No acute fracture of the cervical spine. Variable mild bilateral neuroforaminal stenoses, more moderate to severe on the right at C3-C4. Sagittal and coronal reformatted images confirm above findings. COMBINED IMPRESSION: 1. Either some scarring or a mild left lateral scalp hematoma. Clinically correlate. Mild generalized atrophy. Mild burden of chronic small vessel ischemic disease. No acute intracranial abnormality see n. 2. No acute fracture of the cervical spine. Moderate multilevel spondylotic change. Degenerative grad e 1 anterolisthesis at a few levels as above. Mild spinal canal stenosis suggested at C3-C4 along wit h a moderate to severe right neuroforaminal stenosis at this level. 3. Probable 1.6 cm polyp left nasal cavity. Moderate chronic ethmoid sinus disease.
[2022-03-11] MEDS ORDERED: TOPICAL SKIN ADHESIVE 1 EACH AMP TOPICAL ONE (10:32)
--- NOTE | 2022-03-11 10:42 | XR ---
EXAMINATION TYPE: XR foot complete bilateral, XR ankle complete bilateral DATE OF EXAM: 03/11/2022 10:25 AM INDICATION: Patient age:Male; 72 years old; Reason for study: Trauma; . COMPARISON: None. TECHNIQUE: The bilateral foot and ankle was examined in the AP, oblique, and lateral projections. FINDINGS: Left: Degeneration changes most pronounced at the first digit metatarsophalangeal joint. Th ere is calcaneal plantar spurring present mild calcaneal Achilles enthesophyte is present. No eviden ce of any acute osseous pathology. No evidence of soft tissue swelling. Right: Degeneration changes most pronounced at the first digit metatarsophalangeal joint. There is ca lcaneal plantar spurring present mild calcaneal Achilles enthesophyte is present. No evidence of any acute osseous pathology. No evidence of soft tissue swelling. IMPRESSION: 1. No evidence of acute fracture. 2. Degeneration changes most pronounced in the first digit metatarsophalangeal joint bilaterally.
--- NOTE | 2022-03-11 10:43 | XR ---
EXAMINATION TYPE: XR chest 2V DATE OF EXAM: 03/11/2022 COMPARISON: 12/13/2019 HISTORY: 72-year-old male trauma, pain TECHNIQUE: AP and lateral views FINDINGS: Heart borderline enlarged. Coronary vessel stent is noted on the lateral view. Hyperinflation with fl attening of the hemidiaphragms. There is blunting of the posterior costophrenic angles favored to rep resent pleural-parenchymal scarring rather than trace effusions. Scattered strandy densities likely r epresent scarring. No consolidation. IMPRESSION: Borderline heart size and COPD changes. Some blunting of the posterior costophrenic angles favored to represent pleural parenchymal scarring rather than trace effusions. Clinically correlate. Otherwise, no acute process seen.
[2022-03-11] MEDS ORDERED: NALOXONE 0.4 MG/ML 1 ML VIAL IV PRN (12:55)
[2022-03-11] MEDS ORDERED: NITROGLYCERIN SL TABS 0.4 MG TAB SUBLINGUAL PRN (12:58)
[2022-03-11] MEDS: ACETAMINOPHEN TAB 325 MG TAB PO PRN (16:46)
[2022-03-11] MEDS: MAGNESIUM SULFATE-D5W PMX 1 GM in DEXTROSE/WATER 1 100ML.BAG IVPB SCH ×2 (16:48→18:58)
[2022-03-11] MEDS: SODIUM CHLORIDE 0.9% 1,000 ML IV SCH (16:48)
--- NOTE | 2022-03-11 19:32 | P.HPIM ---
History of Present Illness This is a pleasant 72 years old male with multiple medical problems who presents because of fall at home. Patient was trying to get up from after awaken up from his sleep from the lying position, heading to the restroom to Pee when he fell and hit his head. Patient denies loss of consciousness patient could not get up From the ground, friends helped Him up. Patient however denies room spinning, he keeps saying he felt like something pushed him. Patient complaining from headache after the fall. Patient states that his heada sameer is a 9/10 in severity. Denies weakness or numbness, patient denies blurred vision, no slurred speech Also patient has been complaining from low back pain since this happened he states that his left thigh giving up on him, Patient has a small cut on the left eyebrow with stitches in place, one to is closed with no discharge or bleeding or cellulitis. .Patient is not sure if he has history of A. fib, denies anticoagulation. 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 No urinary complaints His bowel looked good, he had 2 bowel movements yesterday, but still was performed and this is chronic problem for him. No vomiting. No smoking, occasional drinking alcohol. No illicit drugs. Vitals are stable and patient is afebrile, temperature is 90.7. Labs reviewed, WBCs 10, hemoglobin 11.6. Platelets normal. BNP is unremarkable. Glucose 144. Magnesium low at 1.3. Liver enzymes not significantly elevated, ALT slightly high at 79 Alcohol level less than 10. 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 No acute fracture. Moderate multilevel degenerative disc disease. Advanced hypertrophic facet arthropathy throughout. Moderate to severe spinal canal stenosis at L2-L3. Head CT and cervical CT: Mild left lateral scalp hematoma. Generalized atrophy. No acute intracranial abnormality, no acute fracture of the cervical spine, degenerative disease is. Probable 1.6 cm polyp of the left nasal cavity. Moderate chronic ethmoid sinus disease. Bilateral feet and ankles x-ray: No evidence of acute fracture, degenerative disease. chest x-ray: Borderline heart size and COPD changes. Some blunting of the posterior costophrenic angles favored to represent pleural parenchymal scarring to rather than trace effusion. Otherwise no acute process EKG showing atrial fibrillation with a right controlled at 82 In the emergency room he received normal saline and DTP vaccine Review of Systems Review of systems CONSTITUTIONAL: No fever, no malaise, no fatigue. HEENT: No recent visual problems or hearing problems. Denied any sore throat. CARDIOVASCULAR: No orthopnea, PND, no palpitations, no syncope. PULMONARY: No shortness of breath, no cough, no hemoptysis. GASTROINTESTINAL: No diarrhea, no nausea, no vomiting, no abdominal pain. Normoactive bowel sounds. NEUROLOGICAL: No headaches, no weakness, no numbness. HEMATOLOGICAL: Denies any bleeding or petechiae. GENITOURINARY: Denies any burning micturition, frequency, or urgency. MUSCULOSKELETAL/RHEUMATOLOGICAL: Denies any joint pain, swelling, or any muscle pain. ENDOCRINE: Denies any polyuria or polydipsia. Past Medical History Past Medical History: Coronary Artery Disease (CAD), Chest Pain / Angina, GERD/Reflux, Hypertension, Myocardial Infarction ([place]), Pneumonia Additional Past Medical History / Comment(s): Chronic diarrhea, diverticuli, [place] 2008 Last Myocardial Infarction Date:: 2008 History of Any Multi-Drug Resistant Organisms: None Reported Past Surgical History: Heart Catheterization With Stent, Hernia Repair Additional Past Surgical History / Comment(s): Bilateral inguinal hernia repair, tendon repair right pinky finger, stent October 2008, November 2008, 2009 (stent replaced), 2012. Past Anesthesia/Blood Transfusion Reactions: No Reported Reaction Date of Last Stent Placement:: 02/2013 Past Psychological History: Depression Smoking Status: Former smoker Past Alcohol Use History: Occasional Past Drug Use History: None Reported - Past Family History Father Family Medical History: Coronary Artery Disease (CAD), Deep Vein Thrombosis (DVT), Renal Disease Additional Family Medical History / Comment(s): Dad's side of the family had blood clots. Mother Family Medical History: Diabetes Mellitus Additional Family Medical History / Comment(s): Hepatitis B Brother(s) Family Medical History: CVA/TIA, Renal Disease Additional Family Medical History / Comment(s): HIV Medications and Allergies Home Medications Medication Instructions Recorded Confirmed Type Aspirin 81 mg PO DAILY 10/21/13 03/11/22 History Atorvastatin [Lipitor] 80 mg PO HS 10/21/13 03/11/22 History Metoprolol Tartrate [Lopressor] 25 mg PO DAILY 10/21/13 03/11/22 History Nitroglycerin Sl Tabs [Nitrostat] 0.4 mg SL Q5M PRN 10/21/13 03/11/22 History Esomeprazole Magnesium [NexIUM] 40 mg PO DAILY 03/11/22 03/11/22 History Ketoconazole 2% Shampoo [Nizoral] 1 applic TOPICAL DAILY PRN 03/11/22 03/11/22 History Multivit-Min/FA/Lycopen/Lutein 1 tab PO DAILY 03/11/22 03/11/22 History [Centrum Silver Men Tablet] Tamsulosin HCl [Flomax] 0.4 mg PO DAILY 03/11/22 03/11/22 History Triamcinolone 0.1% Ointment 1 applic TOPICAL Q48H PRN 03/11/22 03/11/22 History [Kenalog 0.1% Ointment] buPROPion HCL [Wellbutrin SR] 200 mg PO BID 03/11/22 03/11/22 History hydrALAZINE HCL [Apresoline] 25 mg PO DAILY 03/11/22 03/11/22 History metroNIDAZOLE 0.75% CREAM 1 applic TOPICAL DAILY PRN 03/11/22 03/11/22 History [Metrocream 0.75%] Allergies Allergy/AdvReac Type Severity Reaction Status Date / Time perfume Allergy Rash/Hives Verified 03/11/22 12:20 Physical Exam Vitals: Vital Signs Temp Pulse Resp BP Pulse Ox 03/11/22 08:24 97.0 F L 81 16 135/76 98 Intake and Output 03/10/22 03/11/22 03/11/22 22:59 06:59 14:59 Other: Weight 77.111 kg GENERAL: The patient is alert and oriented x3, not in any acute distress. Well developed, well nourished. -HEENT: Pupils are round and equally reacting to light. EOMI. No scleral icterus. No conjunctival pallor. Normocephalic, atraumatic. No pharyngeal erythema. No thyromegaly. Small vertical cuts on the left eye August with stitches CARDIOVASCULAR: S1 and S2 present. No murmurs, rubs, or gallops. PULMONARY: Chest is clear to auscultation, no wheezing or crackles. ABDOMEN: Soft, nontender, nondistended, normoactive bowel sounds. No palpable organomegaly. MUSCULOSKELETAL: No joint swelling or deformity. -EXTREMITIES: No cyanosis, clubbing, or pedal edema. Bruises on both feet NEUROLOGICAL: Gross neurological examination did not reveal any focal deficits. Cranial nerves are grossly intact. Strength 5/5 and symmetrical. Sensation intact SKIN: No rashes. no petechiae. Results CBC & Chem 7: 03/11/22 08:51 03/11/22 08:51 Labs: Abnormal Lab Results - Last 24 Hours (Table) 03/11/22 03/11/22 Range/Units 08:51 08:51 RBC 3.72 L (4.30-5.90) m/uL Hgb 11.6 L (13.0-17.5) gm/dL Hct 34.8 L (39.0-53.0) % Neutrophils # 8.9 H (1.3-7.7) k/uL Lymphocytes # 0.6 L (1.0-4.8) k/uL Chloride 110 H (98-107) mmol/L Glucose 144 H (74-99) mg/dL Magnesium 1.3 L (1.6-2.3) mg/dL ALT 79 H (4-49) U/L Creatine Kinase 220 H (55-170) U/L Total Protein 5.7 L (6.3-8.2) g/dL Assessment and Plan Assessment: Fall at home without losing consciousness. Moderate to severe spinal stenosis L2-L3 Left nasal sinus polyps 1.6 cm Extensive obulated fusiform aneurysms throughout the abdominal aorta at 3.9 cm, Possible vertigo Hypertension History of GERD History of benign prostatic hypertrophy Hyperlipidemia Plan: this is a pleasant 72 years old male who presents with fall and has, Continue with the neuro check Continue gentle hydration check hemoglobin A1c, vitamin B12 Check orthostatic vitals Consult neurology Consults cardiology service Labs and medication were reviewed.. Continue same treatment. Continue with symptomatic treatment. Resume home medication. Monitor lytes and vitals. DVT and GI prophylaxis. Further recommendations as per clinical course of the patient DVT prophylaxis: Subcutaneous heparin GI Prophylaxis: Pepcid PT/OT: Pending Prognosis is guarded
--- NOTE | 2022-03-11 20:33 | P.CNNES ---
History of Present Illness Consult date: 03/11/22 Requesting physician: Amado E Charles Reason for Consult: Dizziness and fall, spinal stenosis History of Present Illness: Patient is a 72-year-old right-handed male came to the hospital by ambulance today at 8:23 AM for syncopal spells 2. Patient states that at around 2 or 3 AM he woke up to go to the bathroom. He was normal when he woke up. He sat up on the side of the bed. As soon as he put his leg on the floor to get up, he fell on the side and hit his forehead on the dresser. He tried to get up, his foot gave in and then fell again. He crawled to the door and tried to get up and then fell backwards. He states it almost felt as if someone pushed him backwards although nobody was there. His legs would not hold him up. He fell 3 times until his roommate heard the noise, came over. He could not raise himself, as his leg would give out. As per EMS flow sheet, the phone call was made at 7:59 AM. When they arrived at the scene, bystanders found the patient laying on the floor. Patient states th at he has been struggling with dizziness and falling over the last week. Patient has less sedation and bruising on the left side of forehead, bruising on the right foot and tenderness throughout the neck and back. Patient denied any loss of consciousness. Patient denied any chest pain or shortness of breath. Patient does have headaches off and on. Patient mentioned that when he stands up, he feels like she will pass out. Patient remained stable alert oriented 4 during the transport. Patient's vitals at the scene was blood pressure 140/84 pulse rate 68, respiration 18, saturation 95% and blood sugar 131. Blood test shows normal WBC hemoglobin 11.6, platelets 157. Chem-7 normal, AST 52, ALT 79 mildly elevated. CK is 220. Blood alcohol level < 10. CT head showed either some scarring or a mild left lateral scalp hematoma. Correlate clinically. Mild generalized atrophy. Small vessel ischemic disease. No acute process. CT of the cervical spine showed no acute fracture of the cervical spine. Moderate multilevel spondylotic change. Degenerative grade 1 anterolisthesis at a few levels. Mild spinal canal stenosis suggested at C3 4 along with moderate to severe right neural foraminal stenosis at this level. CT of the lumbar spine revealed extensive lobulated fusiform aneurysms throughout the abdominal aorta measuring up to 3.9 cm in diameter. A couple saccular aneur ysms also project of the right lateral aspect, largest measuring 2.5 cm. Moderate to severe spinal canal stenosis at L2-3. Mild overall spinal canal stenosis at L3 4. X-ray of the foot was negative for fracture. Degenerative changes most pronounced in the first digital metatarsophalangeal joint bilaterally. Chest x- ray showed borderline heart size and COPD changes. Some blunting of the poste rior costophrenic angles favored to represent pleural parenchymal scarring rather than trace effusion. EKG shows atrial fibrillation. Patient states that he had a similar fall last on 03/03/2022, but this time he was able to get up and walk without any issue. He was seen by his primary physician the following day, who scheduled outpatient testing including an MRI of the brain, carotid Doppler and EKG. Patient was also scheduled to be seen by a neurologist Dr. Mejias and he has an appointment sometimes in March 2022. Patient states that he has been feeling dizzy episodes for last 1 year. At present patient feels like having a headache, throbbing feeling. Patient denies any previous history of atrial fibrillation. He usually does not use any assistive device. He walks normally. He does have to be careful when going down steps and uses the handrail but does not use any device. Patient states that he smoked 1 pack per day for about 14 years, quit in 2014. Denies any heavy drinking, only in moderation. No drug use. Review of Systems Constitutional: Reports weakness, Denies chills, Denies fever Eyes: bilateral blurred vision, denies diplopia Ears: deny: earache Ears, nose, mouth and throat: Reports headache, Denies sore throat Cardiovascular: Denies chest pain, Denies shortness of breath Respiratory: Denies cough Gastrointestinal: Denies abdominal pain, Denies diarrhea, Denies nausea, Denies vomiting Musculoskeletal: Reports myalgias Musculoskeletal: right: foot pain, foot swelling Integumentary: Denies pruritus, Denies rash Neurological: Reports as per HPI Psychiatric: Denies anxiety, Denies depression Endocrine: Denies fatigue, Denies weight change Hematologic/Lymphatic: Denies easy bruising Allergic/Immunologic: Denies persistent infections Past Medical History Past Medical History: Coronary Artery Disease (CAD), Chest Pain / Angina, GERD/Reflux, Hypertension, Myocardial Infarction ([place]), Pneumonia Additional Past Medical History / Comment(s): Chronic diarrhea, diverticuli, [place] 2008 Last Myocardial Infarction Date:: 2008 History of Any Multi-Drug Resistant Organisms: None Reported Past Surgical History: Heart Catheterization With Stent, Hernia Repair Additional Past Surgical History / Comment(s): Bilateral inguinal hernia repair, tendon repair right pinky finger, stent October 2008, November 2008, 2009 (stent replaced), 2012. Past Anesthesia/Blood Transfusion Reactions: No Reported Reaction Date of Last Stent Placement:: 02/2013 Past Psychological History: Depression Smoking Status: Former smoker Past Alcohol Use History: Occasional Past Drug Use History: None Reported - Past Family History Father Family Medical History: Coronary Artery Disease (CAD), Deep Vein Thrombosis (DVT), Renal Disease Additional Family Medical History / Comment(s): Dad's side of the family had blood clots. Mother Family Medical History: Diabetes Mellitus Additional Family Medical History / Comment(s): Hepatitis B Brother(s) Family Medical History: CVA/TIA, Renal Disease Additional Family Medical History / Comment(s): HIV Medications and Allergies Home Medications Medication Instructions Recorded Confirmed Type Aspirin 81 mg PO DAILY 10/21/13 03/11/22 History Atorvastatin [Lipitor] 80 mg PO HS 10/21/13 03/11/22 History Metoprolol Tartrate [Lopressor] 25 mg PO DAILY 10/21/13 03/11/22 History Nitroglycerin Sl Tabs [Nitrostat] 0.4 mg SL Q5M PRN 10/21/13 03/11/22 History Esomeprazole Magnesium [NexIUM] 40 mg PO DAILY 03/11/22 03/11/22 History Ketoconazole 2% Shampoo [Nizoral] 1 applic TOPICAL DAILY PRN 03/11/22 03/11/22 History Multivit-Min/FA/Lycopen/Lutein 1 tab PO DAILY 03/11/22 03/11/22 History [Centrum Silver Men Tablet] Tamsulosin HCl [Flomax] 0.4 mg PO DAILY 03/11/22 03/11/22 History Triamcinolone 0.1% Ointment 1 applic TOPICAL Q48H PRN 03/11/22 03/11/22 History [Kenalog 0.1% Ointment] buPROPion HCL [Wellbutrin SR] 200 mg PO BID 03/11/22 03/11/22 History hydrALAZINE HCL [Apresoline] 25 mg PO DAILY 03/11/22 03/11/22 History metroNIDAZOLE 0.75% CREAM 1 applic TOPICAL DAILY PRN 03/11/22 03/11/22 History [Metrocream 0.75%] Allergies Allergy/AdvReac Type Severity Reaction Status Date / Time perfume Allergy Rash/Hives Verified 03/11/22 12:20 Physical Examination - Vital Signs Vital Signs: Vital Signs Temp Pulse Resp BP BP Pulse Ox 03/11/22 16:00 98.9 F 139/87 03/11/22 08:24 97.0 F L 81 16 135/76 98 Intake and Output 03/11/22 03/11/22 03/11/22 06:59 14:59 22:59 Other: Weight 77.111 kg Patient is an elderly male, very pleasant, in no acute distress. Patient is alert awake oriented to time place and person. Speech and language functions are normal. Patient can name and repeat very well. No aphasia or dysarthria. Attention, concentration and fund of knowledge is adequate. On cranial nerve examination, pupils are equal, round and reacting to light, visual pappas revealed homonymous visual field defect involving the left upper quadrant. Extraocular muscles are intact with no nystagmus. Face is symmetric, tongue protrudes to the midline. Palatal elevation and sensation normal, hearing and shoulder shrug normal, facial sensation normal. On muscle strength testing, there is no pronator drift and the strength is normal in arms and legs distally and proximally. Deep tendon reflexes are symmetric, very hypoactive to almost absent and plantars downgoing bilaterally. Sensory to touch is equal with no neglect on double simultaneous stimulation. Cerebellar function showed tremulousness for [id number] testing, but no definite ataxia. No dysdiadochokinesia. He has mild tremulousness for [id number] testing on either side, no definitive ataxia. Tone and bulk of muscles normal. Gait deferred.. On general examination, there is no carotid bruit or murmur, S1-S2 audible. Chest is clear on consultation. Abdomen is soft nontender. No organomegaly, bowel sounds present. Peripheral pulses are present. No edema. Results - Laboratory Findings CBC and BMP: 03/12/22 07:01 03/12/22 07:01 Abnormal Lab Findings: Abnormal Labs 03/11/22 03/11/22 08:51 08:51 RBC 3.72 L Hgb 11.6 L Hct 34.8 L Neutrophils # 8.9 H Lymphocytes # 0.6 L Chloride 110 H Glucose 144 H Magnesium 1.3 L ALT 79 H Creatine Kinase 220 H Total Protein 5.7 L Assessment and Plan Assessment: * Probable acute ischemic stroke manifesting with homonymous visual field defect involving left upper quadrant of the visual field. Likely cardioembolic. * New onset atrial fibrillation. * Status post fall, possible due to arrhythmia versus CVA. * Extensive lobulated Fusiform abdominal aortic aneurysm, on top of a couple saccular aneurysms. * Coronary artery disease * Hypertension * Hyperlipidemia * X tobacco use Plan: * Patient to undergo MRI of the brain to evaluate for acute ischemic stroke, rule out hemorrhagic conversion. * MRA of the head, rule out cerebral aneurysm. * Hold anticoagulation until MRI completed. * Agree with starting aspirin * Hemoglobin A1c, fasting lipid panel. * Cardiology on board * 2-D echo to evaluate for embolic source * Carotid Doppler from 03/09/2022 showed mild bilateral atherosclerotic calcification of the carotid bulbs, with no hemodynamically significant stenosis. Antegrade flow in both vertebral arteries. * Agree with checking B12, folate, TSH. * Continue telemetry monitoring. * Regarding abdominal aortic aneurysm, would defer to IM/cardiology. * DVT prophylaxis: Start heparin 5000 units subcu every 12 hours. * Neurology will follow. Thank you for the consult. Time with Patient: Greater than 30
[2022-03-11] MEDS: HEPARIN SODIUM,PORCINE/PF 5,000 UNIT/0.5 ML SYRINGE SQ SCH (21:25)
[2022-03-11] MEDS: ATORVASTATIN 80 MG TAB PO SCH (21:25)
[2022-03-11] MEDS: buPROPion SR 100 MG TABLET.ER PO SCH (21:29)
[2022-03-11 22:20] LABS: Amphetamine Screen,Urine Not Detected (NotDetected); Barbiturate Screen,Urine Not Detected (NotDetected); Benzodiazepines Screen,Urine Not Detected (NotDetected); Cocaine Screen,Urine Not Detected (NotDetected); Methadone Screen, Urine Not Detected (NotDetected); Opiate Screen,Urine Not Detected (NotDetected); Oxycodone Screen, Urine Not Detected (NotDetected); Phencyclidine Screen,Urine Not Detected (NotDetected); Tricyclic Antidepressant,Urine Not Detected (NotDetected); Urn Cannabinoid Scrn Not Detected (NotDetected)
[2022-03-11 22:42] LABS: Appearance,Urine Cloudy (Clear); Bacteria,Urine Occasional /hpf; Bilirubin,Urine Negative (Negative); Blood,Urine Negative (Negative); Color,Urine Yellow; Glucose,Urine (UA) Negative (Negative); Ketones,Urine Negative (Negative); Leukocyte Esterase,Urine Large (Negative); Mucus,Urine Rare /hpf; Nitrite,Urine Negative (Negative); PH, Urine 5.5 (5.0-8.0); Protein,Urine Negative (Negative); RBC,Urine <1 /hpf (0-5); Urobilinogen,Urine <2.0 mg/dL (<2.0); WBC,Urine 18 /hpf (0-5)
[2022-03-12] MEDS: SODIUM CHLORIDE 0.9% 1,000 ML IV SCH ×3 (00:14→11:01)
[2022-03-12] MEDS: ACETAMINOPHEN TAB 325 MG TAB PO PRN ×3 (02:58→23:55)
[2022-03-12] MEDS: PANTOPRAZOLE 40 MG TABLET PO SCH (06:17)
[2022-03-12] MEDS: buPROPion SR 100 MG TABLET.ER PO SCH ×2 (07:59→21:36)
[2022-03-12] MEDS: ASPIRIN 81 MG PO SCH (07:59)
[2022-03-12] MEDS: HEPARIN SODIUM,PORCINE/PF 5,000 UNIT/0.5 ML SYRINGE SQ SCH ×2 (08:00→21:35)
[2022-03-12] MEDS: TAMSULOSIN 0.4 MG CAP.ER.24H PO SCH (08:00)
[2022-03-12] MEDS: hydrALAZINE HCL 25 MG TAB PO SCH (08:00)
[2022-03-12] MEDS ORDERED: ONDANSETRON 4 MG/2 ML VIAL IVP PRN (08:04)
[2022-03-12 08:10] LABS: Basophils % (A) 0 %; Eosinophils % (A) 0 %; HCT 33.6 % (39.0-53.0); HGB 11.2 gm/dL (13.0-17.5); Lymphocytes # (A) 0.8 k/uL (1.0-4.8); Lymphocytes % (A) 11 %; MCH 31.9 pg (25.0-35.0); MCHC 33.4 g/dL (31.0-37.0); MCV 95.3 fL (80.0-100.0); Mean Platelet Volume 9.3; Monocytes # (A) 0.4 k/uL (0-1.0); Monocytes % (A) 6 %; Neutrophils # (A) 6.2 k/uL (1.3-7.7); Neutrophils % (A) 82 %; Platelet Count 145 k/uL (150-450); RBC 3.53 m/uL (4.30-5.90); RDW 13.4 % (11.5-15.5); WBC 7.6 k/uL (3.8-10.6)
[2022-03-12 08:34] LABS: ALT 57 U/L (4-49); AST 43 U/L (17-59); African American GFR (CKD) >90 (>60 ml/min/1.73 sqM); Albumin 3.5 g/dL (3.5-5.0); Alkaline Phosphatase 85 U/L (38-126); Anion Gap 8 mmol/L; Bilirubin, Delta 0.3 mg/dL (0.0-0.2); Bilirubin,Unconjugated 0.6 mg/dL (0.0-1.1); Blood Urea Nitrogen 14 mg/dL (9-20); Calcium 9.1 mg/dL (8.4-10.2); Carbon Dioxide 23 mmol/L (22-30); Chloride 107 mmol/L (98-107); Creatine Kinase 459 U/L (55-170); Glucose 103 mg/dL (74-99); Magnesium 1.6 mg/dL (1.6-2.3); Non-African American GFR(CKD) 82 (>60 ml/min/1.73 sqM); Potassium 4.6 mmol/L (3.5-5.1); Sodium 138 mmol/L (137-145); Total Bilirubin 0.9 mg/dL (0.2-1.3); Total Protein 5.3 g/dL (6.3-8.2)
[2022-03-12] MEDS ORDERED: METOPROLOL TARTRATE 25 MG TAB PO SCH (09:00)
--- NOTE | 2022-03-12 11:47 | P.GSCN ---
History of Present Illness History of present illness: 72-year-old gentleman consulted for abdominal aortic aneurysm. Patient had an episode of what I go he fell on at home but to the ER has been admitted and a computed tomography scan of the abdomen shows patient has a multiple small aneurysm of the abdominal aorta infrarenal is 3.9 and also secular aneurysm 2.5 cm. No family history of abdominal aortic aneurysm Medical history patient has history of coronary artery disease hypertension on examination Neck is supple no bruit appreciated chest is clear good and both lungs Abdomen is soft nontender Vascular femorals are palpable bilateral Computed tomography scan shows 3.9 cm fusiform aneurysm and patient has some secular aneurysm 2.5 Plan is at this point there is aneurysmal small no surgical intervention needed patient can be follow-up in my office been discharged from the hospital Past Medical History Past Medical History: Coronary Artery Disease (CAD), Chest Pain / Angina, GERD/R eflux, Hypertension, Myocardial Infarction ([place]), Pneumonia Additional Past Medical History / Comment(s): Chronic diarrhea, diverticuli, [place] 2008 Last Myocardial Infarction Date:: 2008 History of Any Multi-Drug Resistant Organisms: None Reported Past Surgical History: Heart Catheterization With Stent, Hernia Repair Additional Past Surgical History / Comment(s): Bilateral inguinal hernia repair, tendon repair right pinky finger, stent October 2008, November 2008, 2009 (stent replaced), 2012. Past Anesthesia/Blood Transfusion Reactions: No Reported Reaction Date of Last Stent Placement:: 02/2013 Past Psychological History: Depression Smoking Status: Former smoker Past Alcohol Use History: Occasional Past Drug Use History: None Reported - Past Family History Father Family Medical History: Coronary Artery Disease (CAD), Deep Vein Thrombosis (DVT), Renal Disease Additional Family Medical History / Comment(s): Dad's side of the family had blood clots. Mother Family Medical History: Diabetes Mellitus Additional Family Medical History / Comment(s): Hepatitis B Brother(s) Family Medical History: CVA/TIA, Renal Disease Additional Family Medical History / Comment(s): HIV Medications and Allergies Home Medications Medication Instructions Recorded Confirmed Type Aspirin 81 mg PO DAILY 10/21/13 03/11/22 History Atorvastatin [Lipitor] 80 mg PO HS 10/21/13 03/11/22 History Metoprolol Tartrate [Lopressor] 25 mg PO DAILY 10/21/13 03/11/22 History Nitroglycerin Sl Tabs [Nitrostat] 0.4 mg SL Q5M PRN 10/21/13 03/11/22 History Esomeprazole Magnesium [NexIUM] 40 mg PO DAILY 03/11/22 03/11/22 History Ketoconazole 2% Shampoo [Nizoral] 1 applic TOPICAL DAILY PRN 03/11/22 03/11/22 History Multivit-Min/FA/Lycopen/Lutein 1 tab PO DAILY 03/11/22 03/11/22 History [Centrum Silver Men Tablet] Tamsulosin HCl [Flomax] 0.4 mg PO DAILY 03/11/22 03/11/22 History Triamcinolone 0.1% Ointment 1 applic TOPICAL Q48H PRN 03/11/22 03/11/22 History [Kenalog 0.1% Ointment] buPROPion HCL [Wellbutrin SR] 200 mg PO BID 03/11/22 03/11/22 History hydrALAZINE HCL [Apresoline] 25 mg PO DAILY 03/11/22 03/11/22 History metroNIDAZOLE 0.75% CREAM 1 applic TOPICAL DAILY PRN 03/11/22 03/11/22 History [Metrocream 0.75%] Allergies Allergy/AdvReac Type Severity Reaction Status Date / Time perfume Allergy Rash/Hives Verified 03/11/22 12:20 Surgical - Exam Vital Signs Temp Pulse Resp BP Pulse Ox 97.0 F L 81 16 135/76 98 03/11/22 08:24 03/11/22 08:24 03/11/22 08:24 03/11/22 08:24 03/11/22 08:24 Results - Labs 03/12/22 07:01 03/12/22 07:01 Abnormal Lab Results - Last 24 Hours (Table) 03/11/22 03/12/22 03/12/22 Range/Units 21:30 07:01 07:01 RBC 3.53 L (4.30-5.90) m/uL Hgb 11.2 L (13.0-17.5) gm/dL Hct 33.6 L (39.0-53.0) % Plt Count 145 L (150-450) k/uL Lymphocytes # 0.8 L (1.0-4.8) k/uL Glucose 103 H (74-99) mg/dL Delta Bilirubin 0.3 H (0.0-0.2) mg/dL ALT 57 H (4-49) U/L Creatine Kinase 459 H (55-170) U/L Total Protein 5.3 L (6.3-8.2) g/dL TSH 0.321 L (0.465-4.680) mIU/L Ur Leukocyte Esterase Large H (Negative) Urine WBC 18 H (0-5) /hpf Urine Bacteria Occasional H (None) /hpf Urine Mucus Rare H (None) /hpf Microbiology - Last 24 Hours (Table) 03/11/22 21:30 Urine Culture - Preliminary Urine,Voided Diabetes panel 03/12/22 Range/Units 07:01 Sodium 138 (137-145) mmol/L Potassium 4.6 (3.5-5.1) mmol/L Chloride 107 (98-107) mmol/L Carbon Dioxide 23 (22-30) mmol/L BUN 14 (9-20) mg/dL Creatinine 0.92 (0.66-1.25) mg/dL Glucose 103 H (74-99) mg/dL Calcium 9.1 (8.4-10.2) mg/dL AST 43 (17-59) U/L ALT 57 H (4-49) U/L Alkaline Phosphatase 85 (38-126) U/L Total Protein 5.3 L (6.3-8.2) g/dL Albumin 3.5 (3.5-5.0) g/dL Thyroid panel 03/12/22 Range/Units 07:01 TSH 0.321 L (0.465-4.680) mIU/L Calcium panel 03/12/22 Range/Units 07:01 Calcium 9.1 (8.4-10.2) mg/dL Albumin 3.5 (3.5-5.0) g/dL Pituitary panel 03/12/22 Range/Units 07:01 Sodium 138 (137-145) mmol/L Potassium 4.6 (3.5-5.1) mmol/L Chloride 107 (98-107) mmol/L Carbon Dioxide 23 (22-30) mmol/L BUN 14 (9-20) mg/dL Creatinine 0.92 (0.66-1.25) mg/dL Glucose 103 H (74-99) mg/dL Calcium 9.1 (8.4-10.2) mg/dL TSH 0.321 L (0.465-4.680) mIU/L Adrenal panel 03/12/22 Range/Units 07:01 Sodium 138 (137-145) mmol/L Potassium 4.6 (3.5-5.1) mmol/L Chloride 107 (98-107) mmol/L Carbon Dioxide 23 (22-30) mmol/L BUN 14 (9-20) mg/dL Creatinine 0.92 (0.66-1.25) mg/dL Glucose 103 H (74-99) mg/dL Calcium 9.1 (8.4-10.2) mg/dL Total Bilirubin 0.9 (0.2-1.3) mg/dL AST 43 (17-59) U/L ALT 57 H (4-49) U/L Alkaline Phosphatase 85 (38-126) U/L Total Protein 5.3 L (6.3-8.2) g/dL Albumin 3.5 (3.5-5.0) g/dL
--- NOTE | 2022-03-12 12:14 | P.CRDCN ---
History of Present Illness Consult date: 03/12/22 History of present illness: This pleasant 72-year-old man with a known history of coronary artery disease with prior stenting performed at another facility, chest pain, vertigo GERD, hypertension, [place], pneumonia, diverticuli, hernia repair presented to ER after multiple falls at home. We have been consulted to see the patient for new onset atrial fibrillation and lightheadedness. Patient's EKG showed atrial fibrillation with a controlled ventricle rate. Patient denies any prior history of atrial fibrillation. Patient is on aspirin and subcu heparin. Neurology and orthopedics are also on the case a 11 blade to perform a MRI of his back and head. Anticoagulation remains on hold until MRI has been completed. Patient is on Lopressor 25 mg daily heart rate is uncontrolled 120s to 130s beats per minute. Will increase metoprolol to 25 mg 3 times a day. Will obtain a 2-D echocardiogram. Will consider anticoagulation once MRI is complete. Today patient is resting comfortably in bed in no signs of acute distress. He denies any further episodes of lightheadedness or falling since admitted. He denies palpitations chest pain, or shortness of breath. Review of Systems REVIEW OF SYSTEMS At the time of my exam: CONSTITUTIONAL: Denies fever or chills. EYES: Negative for vision changes ENT: Negative for hearing loss CARDIOVASCULAR: Denies chest pain, shortness of breath, diaphoresis, orthopnea, PND or palpitations. VASCULAR: Denies edema RESPIRATORY: Denies cough. GASTROINTESTINAL: Denies abdominal pain, diarrhea, constipation, nausea or vomiting. MUSCULOSKELETAL: Denies myalgias. NEUROLOGIC: Denies numbness, tingling, headache or weakness. ENDOCRINE: Denies fatigue, weight change, polydipsia or polyurina. GENITOURINARY: Denies burning, hematuria or urgency with micturation. HEMATOLOGIC: Denies history of anemia or bleeding. DERMATOLOGY: Denies rash or skin sores PSYCH: Negative for depression or hallucinations. Past Medical History Past Medical History: Coronary Artery Disease (CAD), Chest Pain / Angina, GERD/Reflux, Hypertension, Myocardial Infarction ([place]), Pneumonia Additional Past Medical History / Comment(s): Chronic diarrhea, diverticuli, [place] 2008 Last Myocardial Infarction Date:: 2008 History of Any Multi-Drug Resistant Organisms: None Reported Past Surgical History: Heart Catheterization With Stent, Hernia Repair Additional Past Surgical History / Comment(s): Bilateral inguinal hernia repair, tendon repair right pinky finger, stent October 2008, November 2008, 2009 (stent replaced), 2012. Past Anesthesia/Blood Transfusion Reactions: No Reported Reaction Date of Last Stent Placement:: 02/2013 Past Psychological History: Depression Smoking Status: Former smoker Past Alcohol Use History: Occasional Past Drug Use History: None Reported - Past Family History Father Family Medical History: Coronary Artery Disease (CAD), Deep Vein Thrombosis (DVT), Renal Disease Additional Family Medical History / Comment(s): Dad's side of the family had blood clots. Mother Family Medical History: Diabetes Mellitus Additional Family Medical History / Comment(s): Hepatitis B Brother(s) Family Medical History: CVA/TIA, Renal Disease Additional Family Medical History / Comment(s): HIV Medications and Allergies Home Medications Medication Instructions Recorded Confirmed Type Aspirin 81 mg PO DAILY 10/21/13 03/11/22 History Atorvastatin [Lipitor] 80 mg PO HS 10/21/13 03/11/22 History Metoprolol Tartrate [Lopressor] 25 mg PO DAILY 10/21/13 03/11/22 History Nitroglycerin Sl Tabs [Nitrostat] 0.4 mg SL Q5M PRN 10/21/13 03/11/22 History Esomeprazole Magnesium [NexIUM] 40 mg PO DAILY 03/11/22 03/11/22 History Ketoconazole 2% Shampoo [Nizoral] 1 applic TOPICAL DAILY PRN 03/11/22 03/11/22 History Multivit-Min/FA/Lycopen/Lutein 1 tab PO DAILY 03/11/22 03/11/22 History [Centrum Silver Men Tablet] Tamsulosin HCl [Flomax] 0.4 mg PO DAILY 03/11/22 03/11/22 History Triamcinolone 0.1% Ointment 1 applic TOPICAL Q48H PRN 03/11/22 03/11/22 History [Kenalog 0.1% Ointment] buPROPion HCL [Wellbutrin SR] 200 mg PO BID 03/11/22 03/11/22 History hydrALAZINE HCL [Apresoline] 25 mg PO DAILY 03/11/22 03/11/22 History metroNIDAZOLE 0.75% CREAM 1 applic TOPICAL DAILY PRN 03/11/22 03/11/22 History [Metrocream 0.75%] Allergies Allergy/AdvReac Type Severity Reaction Status Date / Time perfume Allergy Rash/Hives Verified 03/11/22 12:20 Physical Exam Vitals: Vital Signs Temp Pulse Resp BP Pulse Ox 03/12/22 11:01 75 18 124/73 97 03/12/22 07:55 98.2 F 110 H 18 125/72 97 03/12/22 04:00 98.6 F 97 18 148/93 96 03/12/22 02:00 92 18 03/12/22 00:00 98.8 F 92 18 146/86 95 03/11/22 20:51 99.2 F 109 H 18 157/85 95 03/11/22 20:00 99.2 F 109 H 18 157/85 95 03/11/22 16:00 98.9 F 139/87 Intake and Output 03/11/22 03/12/22 03/12/22 22:59 06:59 14:59 Intake Total 10 Output Total 200 400 Balance -190 -400 Intake: IV 10 Invasive Line 1 10 Output: Urine 200 400 Other: Voiding Method Urinal Urinal Weight 77.111 kg PHYSICAL EXAMINATION VITAL SIGNS: Reviewed General: The patient is awake and alert, in no distress, and does not appear acutely ill. Skin: Skin is warm and dry and no rashes or lesions are noted. Eye: Pupils are equal, round and reactive to light, extra-ocular movements are intact; there is normal conjunctiva bilaterally. Ears, nose, mouth and throat: There are moist mucous membranes and no oral lesions. Neck: The neck is supple, there is no tenderness or JVD. Cardiovascular: There is irregular rate and rhythm. No murmur, rub or gallop is appreciated. Respiratory: Lungs are clear to auscultation, respirations are non-labored, breath sounds are equal. Gastrointestinal: Soft, non-distended, non-tender abdomen without masses or organomegaly noted. There is no rebound or guarding present. Bowel sounds are unremarkable. Back: There is no tenderness to palpation in the midline. There is no obvious deformity. Musculoskeletal: Normal ROM, no tenderness, There is no pedal edema. There is no calf tenderness or swelling. Extremities: Mild bilateral pitting edema Vascular: Femoral pulse is normal. Posterior tibial pulses are normal .Dorsalis pedis is palpable. Neurological: CN II-XII intact. There are no obvious motor or sensory deficits. Speech is normal. Psychiatric: Cooperative, appropriate mood & affect, normal judgment Results 03/12/22 07:01 03/12/22 07:01 Cardiac Enzymes 03/12/22 Range/Units 07:01 AST 43 (17-59) U/L CBC 03/12/22 Range/Units 07:01 WBC 7.6 (3.8-10.6) k/uL RBC 3.53 L (4.30-5.90) m/uL Hgb 11.2 L (13.0-17.5) gm/dL Hct 33.6 L (39.0-53.0) % Plt Count 145 L (150-450) k/uL Comprehensive Metabolic Panel 03/12/22 Range/Units 07:01 Sodium 138 (137-145) mmol/L Potassium 4.6 (3.5-5.1) mmol/L Chloride 107 (98-107) mmol/L Carbon Dioxide 23 (22-30) mmol/L BUN 14 (9-20) mg/dL Creatinine 0.92 (0.66-1.25) mg/dL Glucose 103 H (74-99) mg/dL Calcium 9.1 (8.4-10.2) mg/dL Unconjugated Bilirubin 0.6 (0.0-1.1) mg/dL AST 43 (17-59) U/L ALT 57 H (4-49) U/L Alkaline Phosphatase 85 (38-126) U/L Total Protein 5.3 L (6.3-8.2) g/dL Albumin 3.5 (3.5-5.0) g/dL Current Medications Generic Name Dose Route Start Last Admin Trade Name Freq PRN Reason Stop Dose Admin Acetaminophen 650 mg 03/11/22 12:55 03/12/22 02:58 Acetaminophen Tab 325 Mg Tab PO 650 mg Q6HR PRN Administration Mild Pain or Fever > 100.5 Aspirin 81 mg 03/12/22 09:00 03/12/22 07:59 Aspirin 81 Mg PO 81 mg DAILY QUAN Administration Atorvastatin Calcium 80 mg 03/11/22 21:00 03/11/22 21:25 Atorvastatin 80 Mg Tab PO 80 mg HS QUAN Administration Bupropion HCl 200 mg 03/11/22 21:00 03/12/22 07:59 Bupropion Sr 100 Mg Tablet.Er PO 200 mg BID QUAN Administration Heparin Sodium (Porcine) 5,000 unit 03/11/22 21:00 03/12/22 08:00 Heparin Sodium,Porcine/Pf 5,000 Unit/0.5 Ml Syringe SQ 5,000 unit Q12HR QUAN Administration Hydralazine HCl 25 mg 03/12/22 09:00 03/12/22 08:00 Hydralazine Hcl 25 Mg Tab PO 25 mg DAILY QUAN Administration Sodium Chloride 1,000 mls @ 130 mls/hr 03/11/22 13:00 03/12/22 11:01 Saline 0.9% IV 130 mls/hr .[id number] QUAN Administration Ceftriaxone Sodium 2 gm/ 50 mls @ 100 mls/hr 03/12/22 00:00 03/12/22 00:13 Sodium Chloride IVPB 100 mls/hr Q24HR QUAN Administration Protocol Metoprolol Tartrate 25 mg 03/12/22 09:00 03/12/22 08:00 Metoprolol Tartrate 25 Mg Tab PO 25 mg DAILY QUAN Administration Naloxone HCl 0.2 mg 03/11/22 12:55 Naloxone 0.4 Mg/Ml 1 Ml Vial IV Q2M PRN Opioid Reversal Nitroglycerin 0.4 mg 03/11/22 12:58 Nitroglycerin Sl Tabs 0.4 Mg Tab SUBLINGUAL Q5M PRN Pain Ondansetron HCl 4 mg 03/12/22 08:04 03/12/22 08:09 Ondansetron 4 Mg/2 Ml Vial IVP 4 mg Q6HR PRN Administration Nausea And Vomiting Pantoprazole Sodium 40 mg 03/12/22 07:30 03/12/22 06:17 Pantoprazole 40 Mg Tablet PO 40 mg [id number] QUAN Administration Tamsulosin HCl 0.4 mg 03/12/22 09:00 03/12/22 08:00 Tamsulosin 0.4 Mg Cap.Er.24h PO 0.4 mg DAILY QUAN Administration Intake and Output 03/11/22 03/12/22 03/12/22 22:59 06:59 14:59 Intake Total 10 Output Total 200 400 Balance -190 -400 Intake: IV 10 Invasive Line 1 10 Output: Urine 200 400 Other: Voiding Method Urinal Urinal Weight 77.111 kg 03/12/22 07:01 03/12/22 07:01 Assessment and Plan Assessment: New onset persistent atrial fibrillation with RVR History of coronary artery disease status post angioplasty History of recent falls Plan: Increase Lopressor to 25 mg 3 times a day Continue to hold anticoagulation until MRI is complete Once MRI is complete will consider oral anticoagulation on request Obtain a 2-D echocardiogram Continue with telemetry monitoring Further recommendations based on clinical course The above impression and plan of care have been discussed and directed by the signing physician. Roxi Nunez, nurse practitioner, acting as scribe for sign ing physician.
--- NOTE | 2022-03-12 13:01 | MR ---
EXAMINATION TYPE: MR angio head wo con DATE OF EXAM: 03/12/2022 COMPARISON: NONE HISTORY: Acute CVA, rule out aneurysm TECHNIQUE: Time of flight images focusing on the [place] were performed without contrast.. 2-D and 3-D postprocessing imaging is performed MRI scanner. FINDINGS: Vertebral arteries are patent to the basilar junction. Left vertebral artery is larger rosendo elda dominant. There is small caliber but patent right posterior communicating artery. There is hypopl astic left posterior communicating artery. Patent anterior communicating artery images 75 through 77 is present. No significant focal stenosis or aneurysm in the anterior circulation IMPRESSION: No aneurysm at the level of the [place] of [place].
--- NOTE | 2022-03-12 13:06 | MR ---
EXAMINATION TYPE: MR brain wo con DATE OF EXAM: 03/12/2022 COMPARISON: MRI brain [address] brain from yesterday HISTORY: Acute CVA, rule out aneurysm TECHNIQUE: Multiplanar, multisequence imaging of the brain and brainstem is performed without IV cont rast. FINDINGS: Diffusion weighted images demonstrate Arterial increased signal on diffusion weighted images with diminished signal on ADC mapping involvin g the inferior right occipital lobe extending into the posterior superior temporal lobe with diminish ed T1 and increased T2 signal and sulcal effacement measuring approximately 8.0 x 3.5 cm image 96 dif fusion series 503 new from MRI one week earlier. Findings consistent with evolving acute infarct. Mild ventricular and sulcal prominence redemonstrated. Some areas of T2 hyperintensity in the periven tricular white matter again seen. Old lacunar infarct head of caudate nucleus axial image 20 series 6 01 redemonstrated. Midline structures demonstrate normal morphology. The craniocervical junction appears within normal limits. Normal vascular flow voids are present. [id number] mucosal thickening ethmoid sinuses b ilaterally redemonstrated. Globes are intact bilaterally. Patchy fluid right mastoid air cells redemo nstrated. IMPRESSION: 1. New acute infarct fairly moderate to large in size involving the inferior right occipital lobe ext ending to the posterior superior medial temporal lobe as detailed above. 2. Background mild diffuse cerebral atrophy and chronic small vessel ischemic change with old right h ead of caudate nucleus lacunar infarct are all redemonstrated.
--- NOTE | 2022-03-12 14:58 | P.PN ---
Subjective Progress Note Date: 03/12/22 Patient was seen for a follow-up. Patient offers no new complaints. He is laying comfortably in the bed. Patient's son was also present today. Patient admits to having headache, but gets better when he relaxes. He continues to have visual disturbance. Patient was also getting nauseated, but feels better. Objective - Vital Signs Vital signs: Vital Signs Temp 98.2 F 03/12/22 07:55 Pulse 75 03/12/22 13:10 Resp 18 03/12/22 11:01 BP 124/73 03/12/22 11:01 Pulse Ox 97 03/12/22 11:01 FiO2 Intake & Output 03/11/22 03/12/22 03/12/22 18:59 06:59 18:59 Intake Total 10 Output Total 600 Balance 10 -600 Weight 77.111 kg 77.111 kg Intake: IV 10 Invasive Line 1 10 Output: Urine 600 Other: Voiding Method Urinal Urinal # Voids 1 - Exam Patient's examination is completely normal except for homonymous visual field defect in involving the left upper quadrant. And the status, speech and language functions are normal. No pronator drift. No ataxia. Sensations equal with no neglect. - Labs CBC & Chem 7: 03/12/22 07:01 03/12/22 07:01 Labs: Abnormal Lab Results - Last 24 Hours (Table) 03/11/22 03/12/22 03/12/22 Range/Units 21:30 07:01 07:01 RBC 3.53 L (4.30-5.90) m/uL Hgb 11.2 L (13.0-17.5) gm/dL Hct 33.6 L (39.0-53.0) % Plt Count 145 L (150-450) k/uL Lymphocytes # 0.8 L (1.0-4.8) k/uL Glucose 103 H (74-99) mg/dL Delta Bilirubin 0.3 H (0.0-0.2) mg/dL ALT 57 H (4-49) U/L Creatine Kinase 459 H (55-170) U/L Total Protein 5.3 L (6.3-8.2) g/dL TSH 0.321 L (0.465-4.680) mIU/L Ur Leukocyte Esterase Large H (Negative) Urine WBC 18 H (0-5) /hpf Urine Bacteria Occasional H (None) /hpf Urine Mucus Rare H (None) /hpf Microbiology - Last 24 Hours (Table) 03/11/22 21:30 Urine Culture - Preliminary Urine,Voided Assessment and Plan Assessment: * Acute ischemic stroke involving the right medial temporal region, manifesting with homonymous visual field defect involving left upper quadrant of the visual field. Most likely cardioembolic. * New onset atrial fibrillation. * Status post fall, possible due to arrhythmia versus CVA. * Extensive lobulated Fusiform abdominal aortic aneurysm, on top of a couple saccular aneurysms. * Acute UTI, on ceftriaxone. * Coronary artery disease * Hypertension * Hyperlipidemia * X tobacco use Plan: * MRI of the brain confirmed an acute infarct, fairly moderate to large size involving the inferior right occipital lobe extending to the posterior superior medial temporal lobe. Background mild diffuse cerebral atrophy and chronic small vessel ischemic change with old right head of caudate nucleus lacunar infarct. I personally reviewed MRI, agree with the findings. * MRA of the head, negative for any cerebral aneurysm. * Hold anticoagulation for 7 days due to large size infarct. Patient at risk of hemorrhagic conversion. Patient will need repeat CT head in 7 days before starting anticoagulation. * Continue aspirin, consider adding Plavix. * Hemoglobin A1c 6.0, fasting lipid panel pending. Continue high intensity statins, Lipitor 80 mg daily. * Cardiology on board * 2-D echo pending. * Carotid Doppler from 03/09/2022 showed mild bilateral atherosclerotic calcification of the carotid bulbs, with no hemodynamically significant stenosis. Antegrade flow in both vertebral arteries. * B12 803, folate 16.10, TSH 0.321, which is slightly low, and normal free T4 1.30. * Continue telemetry monitoring. * Vascular surgery seen patient for abdominal aortic aneurysm. No treatment necessary at this time. * DVT prophylaxis: Start heparin 5000 units subcu every 12 hours.
[2022-03-12] MEDS: METOPROLOL TARTRATE 25 MG TAB PO SCH ×2 (15:06→21:36)
--- NOTE | 2022-03-12 20:34 | P.PN ---
Subjective This is a pleasant 72 years old male with multiple medical problems who presents because of fall at home. Patient was trying to get up from after awaken up from his sleep from the lying position, heading to the restroom to Pee when he fell and hit his head. Patient denies loss of consciousness patient could not get up From the ground, friends helped Him up. Patient however denies room spinning, he keeps saying he felt like something pushed him. Patient complaining from headache after the fall. Patient states that his headache is a 9/10 in severity. Denies weakness or numbness, patient denies blurred vision, no slurred speech Also patient has been complaining from low back pain since this happened he states that his left thigh giving up on him, Patient has a small cut on the left eyebrow with stitches in place, one to is closed with no discharge or bleeding or cellulitis. .Patient is not sure if he has history of A. fib, denies anticoagulation. His rails developer is Dr. Dempsey He said that his PCP sent him for MRI Monday and has been told that he has also stroke as per patient Patient denies dyspnea or chest pain. No urinary complaints His bowel looked good, he had 2 bowel movements yesterday, but still was performed and this is chronic problem for him. No vomiting. No smoking, occasional drinking alcohol. No illicit drugs. Vitals are stable and patient is afebrile, temperature is 90.7. Labs reviewed, WBCs 10, hemoglobin 11.6. Platelets normal. BNP is unremarkable. Glucose 144. Magnesium low at 1.3. Liver enzymes not significantly elevated, ALT slightly high at 79 Alcohol level less than 10. 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 No acute fracture. Moderate multilevel degenerative disc disease. Advanced hypertrophic facet arthropathy throughout. Moderate to severe spinal canal stenosis at L2-L3. Head CT and cervical CT: Mild left lateral scalp hematoma. Generalized atrophy. No acute intracranial abnormality, no acute fracture of the cervical spine, degenerative disease is. Probable 1.6 cm polyp of the left nasal cavity. Moderate chronic ethmoid sinus disease. Bilateral feet and ankles x-ray: No evidence of acute fracture, degenerative disease. chest x-ray: Borderline heart size and COPD changes. Some blunting of the posterior costophrenic angles favored to represent pleural parenchymal scarring to rather than trace effusion. Otherwise no acute process EKG showing atrial fibrillation with a right controlled at 82 In the emergency room he received normal saline and DTP vaccine 03/12/2022 Patient feels better today with no vision a problem and detail headache. He confirms about peripheral blind spots he had but he moves both arms symmetrically MRI:Acute infarct fairly moderate to large in size involving the inferior right occipital lobe extending to the posterior superior medial temporal lobe. Diffuse cerebral atrophy MRA no aneurysm dilatation Neurologist recommended to hold anticoagulation for 7 days Cardiology saw the patient for new onset A. fib and decrease metoprolol dose. Patient remains on ceftriaxone, Protonix home dose of aspirin 81 mg. 1 neurologist recommended to hold anticoagulation for 7 days I discussed the case with vascular surgery team noted for intervention regarding his aneurysmal dilatation Objective - Vital Signs Vital signs: Vital Signs Temp 98.4 F 03/12/22 15:01 Pulse 100 03/12/22 15:01 Resp 18 03/12/22 15:01 BP 138/75 03/12/22 15:01 Pulse Ox 96 03/12/22 15:01 FiO2 Intake & Output 03/11/22 03/12/22 03/12/22 18:59 06:59 18:59 Intake Total 10 237 Output Total 600 100 Balance 10 -600 137 Weight 77.111 kg 77.111 kg Intake: IV 10 Invasive Line 1 10 Oral 237 Output: Urine 600 100 Other: Voiding Method Urinal Urinal # Voids 1 - Exam GENERAL: The patient is alert and oriented x3, not in any acute distress. Well developed, well nourished. HEENT: Pupils are round and equally reacting to light. EOMI. No scleral icterus. No conjunctival pallor. Normocephalic, atraumatic. No pharyngeal erythema. No thyromegaly. CARDIOVASCULAR: S1 and S2 present. No murmurs, rubs, or gallops. PULMONARY: Chest is clear to auscultation, no wheezing or crackles. ABDOMEN: Soft, nontender, nondistended, normoactive bowel sounds. No palpable organomegaly. MUSCULOSKELETAL: No joint swelling or deformity. EXTREMITIES: No cyanosis, clubbing, or pedal edema. NEUROLOGICAL: Gross neurological examination did not reveal any focal deficits. SKIN: No rashes. no petechiae. - Labs CBC & Chem 7: 03/12/22 07:01 03/12/22 07:01 Labs: Abnormal Lab Results - Last 24 Hours (Table) 03/11/22 03/12/22 03/12/22 Range/Units 21:30 07:01 07:01 RBC 3.53 L (4.30-5.90) m/uL Hgb 11.2 L (13.0-17.5) gm/dL Hct 33.6 L (39.0-53.0) % Plt Count 145 L (150-450) k/uL Lymphocytes # 0.8 L (1.0-4.8) k/uL Glucose 103 H (74-99) mg/dL Delta Bilirubin 0.3 H (0.0-0.2) mg/dL ALT 57 H (4-49) U/L Creatine Kinase 459 H (55-170) U/L Total Protein 5.3 L (6.3-8.2) g/dL TSH 0.321 L (0.465-4.680) mIU/L Ur Leukocyte Esterase Large H (Negative) Urine WBC 18 H (0-5) /hpf Urine Bacteria Occasional H (None) /hpf Urine Mucus Rare H (None) /hpf Microbiology - Last 24 Hours (Table) 03/11/22 21:30 Urine Culture - Preliminary Urine,Voided Assessment and Plan Assessment: moderate to large infarct involving the inferior right occipital lobe. New Consent A. fib Moderate to severe spinal stenosis L2-L3 Left nasal sinus polyps 1.6 cm Extensive obulated fusiform aneurysms throughout the abdominal aorta at 3.9 cm, Possible vertigo Hypertension History of GERD History of benign prostatic hypertrophy Hyperlipidemia Plan: this is a pleasant 72 years old male who presents with fall and has, Continue with the neuro check Continue hold anticoagulation 7 days while continue with metoprolol Neurology and cardiology on the case ntinue same treatment. Continue with symptomatic treatment. Resume home medication. Monitor lytes and vitals. DVT and GI prophylaxis. Further recommendations as per clinical course of the patient DVT prophylaxis: Subcutaneous heparin GI Prophylaxis: Pepcid PT/OT: Pending Prognosis is guarded
[2022-03-12] MEDS: ATORVASTATIN 80 MG TAB PO SCH (21:36)
[2022-03-13] MEDS: SODIUM CHLORIDE 0.9% 1,000 ML IV SCH ×4 (02:35→21:58)
[2022-03-13] MEDS: PANTOPRAZOLE 40 MG TABLET PO SCH (06:27)
--- NOTE | 2022-03-13 07:48 | P.CNOR ---
History of Present Illness - [facility] Consult date: 03/12/22 Consult reason: other (Lower extremity paresthesias) History of present illness: Patient is a 72-year-old male who presented to [facility] on 03/11/2022 with regards to lower extremity weakness, vertigo symptoms. Patient was evaluated in the outpatient setting by his primary care doctor who had initially ordered an MRI. Patient had reported also to frequent falls in the last few days. Patient was admitted to the hospital for further evaluation. Patient was also diagnosed with new A. fib, he is been followed by cardiology, internal medicine and neurology. Due to the numbness and tingling in the extremities are orthopedic team was consulted. MRI of the brain has revealed acute ischemic stroke involving the right medial temporal region. Patient was evaluated at bedside on 03/12/2022. He was resting comfortably. Patient states that he's had no history of back pain. He states that all these symptoms started about a week ago or so. Patient normally utilize no assistive devices for ambulation. He was tingling in the feet had just started over the last week or so. He denies any shooting pain of the lower extremity is. He denies any numbness or tingling or pain involving the upper extremities. He denies any acute cervical, thoracic or lumbar pain. He does have some gen eralized discomfort in the feet and ankles from his recent fall. Denies any changes in bowel or bladder function. He denies any numbness or tingling to the genital region or perineal region. Review of Systems Constitutional: Reports as per HPI Past Medical History Past Medical History: Coronary Artery Disease (CAD), Chest Pain / Angina, GERD/Reflux, Hypertension, Myocardial Infarction ([place]), Pneumonia Additional Past Medical History / Comment(s): Chronic diarrhea, diverticuli, [place] 2008 Last Myocardial Infarction Date:: 2008 History of Any Multi-Drug Resistant Organisms: None Reported Past Surgical History: Heart Catheterization With Stent, Hernia Repair Additional Past Surgical History / Comment(s): Bilateral inguinal hernia repair, tendon repair right pinky finger, stent October 2008, November 2008, 2009 (stent replaced), 2012. Past Anesthesia/Blood Transfusion Reactions: No Reported Reaction Date of Last Stent Placement:: 02/2013 Past Psychological History: Depression Smoking Status: Former smoker Past Alcohol Use History: Occasional Past Drug Use History: None Reported - Past Family History Father Family Medical History: Coronary Artery Disease (CAD), Deep Vein Thrombosis (DVT), Renal Disease Additional Family Medical History / Comment(s): Dad's side of the family had blood clots. Mother Family Medical History: Diabetes Mellitus Additional Family Medical History / Comment(s): Hepatitis B Brother(s) Family Medical History: CVA/TIA, Renal Disease Additional Family Medical History / Comment(s): HIV Medications and Allergies Home Medications Medication Instructions Recorded Confirmed Type Aspirin 81 mg PO DAILY 10/21/13 03/11/22 History Atorvastatin [Lipitor] 80 mg PO HS 10/21/13 03/11/22 History Metoprolol Tartrate [Lopressor] 25 mg PO DAILY 10/21/13 03/11/22 History Nitroglycerin Sl Tabs [Nitrostat] 0.4 mg SL Q5M PRN 10/21/13 03/11/22 History Esomeprazole Magnesium [NexIUM] 40 mg PO DAILY 03/11/22 03/11/22 History Ketoconazole 2% Shampoo [Nizoral] 1 applic TOPICAL DAILY PRN 03/11/22 03/11/22 History Multivit-Min/FA/Lycopen/Lutein 1 tab PO DAILY 03/11/22 03/11/22 History [Centrum Silver Men Tablet] Tamsulosin HCl [Flomax] 0.4 mg PO DAILY 03/11/22 03/11/22 History Triamcinolone 0.1% Ointment 1 applic TOPICAL Q48H PRN 03/11/22 03/11/22 History [Kenalog 0.1% Ointment] buPROPion HCL [Wellbutrin SR] 200 mg PO BID 03/11/22 03/11/22 History hydrALAZINE HCL [Apresoline] 25 mg PO DAILY 03/11/22 03/11/22 History metroNIDAZOLE 0.75% CREAM 1 applic TOPICAL DAILY PRN 03/11/22 03/11/22 History [Metrocream 0.75%] Allergies Allergy/AdvReac Type Severity Reaction Status Date / Time perfume Allergy Rash/Hives Verified 03/11/22 12:20 Physical Examination Gen: AOx3, NAD VSS stable at this time Integument: No obvious open lesions or sores are present throughout the cervical, thoracic or lumbar spine Palpation: No significant tenderness with palpation to the cervical, thoracic or lumbar midline or paraspinal region. 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 4+5 strength appreciated in the bilateral lower extremities with hip flexion, knee extension, knee flexion, plantar flexion, dorsiflexion, EHL, FHL Reflexe 2/4 in all UE and LE Negative Xiang's, Babinski, clonus bilaterally Secial est: Logroll maneuver reproduces no pain in the bilateral lower extremities Results - Labs Labs: Abnormal Lab Results - Last 24 Hours (Table) 03/12/22 03/12/22 Range/Units 07:01 07:01 RBC 3.53 L (4.30-5.90) m/uL Hgb 11.2 L (13.0-17.5) gm/dL Hct 33.6 L (39.0-53.0) % Plt Count 145 L (150-450) k/uL Lymphocytes # 0.8 L (1.0-4.8) k/uL Glucose 103 H (74-99) mg/dL Delta Bilirubin 0.3 H (0.0-0.2) mg/dL ALT 57 H (4-49) U/L Creatine Kinase 459 H (55-170) U/L Total Protein 5.3 L (6.3-8.2) g/dL TSH 0.321 L (0.465-4.680) mIU/L Microbiology - Last 24 Hours (Table) 03/11/22 21:30 Urine Culture - Preliminary Urine,Voided H & H 03/11/22 03/12/22 Range/Units 08:51 07:01 Hgb 11.6 L 11.2 L (13.0-17.5) gm/dL Hct 34.8 L 33.6 L (39.0-53.0) % Result Diagrams: 03/12/22 07:01 03/12/22 07:01 - Diagnostic results Ankle/Foot x-ray: report reviewed, image reviewed Ankle/Foot MRI: report reviewed, image reviewed CT Scan - lumbar: report reviewed, image reviewed Assessment and Plan Assessment: Acute ischemic stroke involving the right medial temporal region Multilevel lumbar spondylosis with facet arthropathy Lower extremity paresthesias Other medical comorbidities Plan: Imaging: X-rays reviewed of the bilateral feet and ankle, no acute fractures or dislocations appreciated. No other acute osseous abnormalities were visualized. Report and images lumbar spine. Multilevel lumbar spondylosis along with facet arthropathy is noted. 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 March. No emergent orthopedic surgical intervention at this time Patients symptoms mores contributed to acute ischemic stroke, neurology recommendations are appreciated GI and DVT prophylaxis per primary medical service Continue to follow patient during inpatient stay Time with Patient: Less than 30
[2022-03-13] MEDS: ASPIRIN 81 MG PO SCH (08:06)
[2022-03-13] MEDS: METOPROLOL TARTRATE 25 MG TAB PO SCH ×3 (08:06→23:28)
[2022-03-13] MEDS: buPROPion SR 100 MG TABLET.ER PO SCH ×2 (08:06→20:20)
[2022-03-13] MEDS: hydrALAZINE HCL 25 MG TAB PO SCH (08:06)
[2022-03-13] MEDS: HEPARIN SODIUM,PORCINE/PF 5,000 UNIT/0.5 ML SYRINGE SQ SCH ×2 (08:06→20:20)
[2022-03-13] MEDS: TAMSULOSIN 0.4 MG CAP.ER.24H PO SCH (08:06)
--- NOTE | 2022-03-13 13:08 | P.PN ---
Subjective Progress Note Date: 03/13/22 Patient is seen today resting comfortably in bed in no signs of acute distress. He underwent an MRI yesterday which showed new infarct of moderate to large size. It is recommended by neurology to hold anticoagulation for 7 days. He remains in atrial fibrillation on the monitor with a controlled heart rate. Will continue with current cardiac medications. Patient will have a 2-D echocardiogram tomorrow Objective - Vital Signs Vital signs: Vital Signs Temp 98.7 F 03/13/22 12:00 Pulse 94 03/13/22 12:00 Resp 18 03/13/22 12:00 BP 135/73 03/13/22 12:00 Pulse Ox 98 03/13/22 12:00 FiO2 Intake & Output 03/12/22 03/13/22 03/13/22 18:59 06:59 18:59 Intake Total 237 100 Output Total 100 Balance 137 100 Intake: Oral 237 100 Output: Urine 100 Other: Voiding Method Urinal Toilet Toilet # Voids 1 2 1 # Bowel Movements 0 - Exam PHYSICAL EXAM: VITAL SIGNS: Reviewed. GENERAL: Well-developed in no acute distress. HEENT: Head is normocephalic. Pupils are equal, round. Sclerae anicteric. Mucous membranes of the mouth are moist. NECK: Supple. No JVD or thyromegaly RESPIRATORY: Respirations even and unlabored. Lungs diminished to auscultation bilaterally. CARDIO: IrRegular rate and rhythm. No murmur or gallops. EXTREMITIES: Normal range of motion. No clubbing or cyanosis. Peripheral pulses intact. Negative for bilateral lower extremity edema NEURO: Orientated to person, time, mood is appropriate - Labs CBC & Chem 7: 03/12/22 07:01 03/12/22 07:01 Labs: Microbiology - Last 24 Hours (Table) 03/11/22 21:30 Urine Culture - Final Urine,Voided Assessment and Plan Assessment: New onset persistent atrial fibrillation with RVR History of coronary artery disease status post angioplasty History of recent falls Plan: At this time will hold anticoagulation for 7 days as recommended by neurology, will restart when cleared by neurology obtain a 2-D echocardiogram Continue with current cardiac medications Continue with telemetry monitoring Further recommendations based on clinical course The above impression and plan of care have been discussed and directed by the signing physician. Roxi Nunez, nurse practitioner, acting as scribe for signing physician.
--- NOTE | 2022-03-13 13:19 | P.PN ---
Subjective Progress Note Date: 03/13/22 Principal diagnosis: Bilateral lower extremity paresthesias Dr. March and myself were available to examine the patient today. He remains stable from the orthopedic spine status. Dr. March to discuss the patient follow-up in the outpatient setting on an as-needed basis. Objective - Vital Signs Vital signs: Vital Signs Temp 98.7 F 03/13/22 12:00 Pulse 94 03/13/22 12:00 Resp 18 03/13/22 12:00 BP 135/73 03/13/22 12:00 Pulse Ox 98 03/13/22 12:00 FiO2 Intake & Output 03/12/22 03/13/22 03/13/22 18:59 06:59 18:59 Intake Total 237 100 Output Total 100 Balance 137 100 Intake: Oral 237 100 Output: Urine 100 Other: Voiding Method Urinal Toilet Toilet # Voids 1 2 1 # Bowel Movements 0 - Exam Gen: AOx3, NAD VSS stable at this time Integument: No obvious open lesions or sores are present throughout the cervical, thoracic or lumbar spine Palpation: No significant tenderness with palpation to the cervical, thoracic or lumbar midline or paraspinal region. No point tenderness is appreciated to the bilateral upper or lower extremities ROM: Patient demonstrates full range of motion in all major muscle groups of the bilateral upper and lower extremities, no focal deficits appreciatedSensoryxam: Senory exam to light touch is intact C5-T1 Sensory exam to light touch is intact L2-S1 Motor: 55 strength appreciated in the bilateral upper extremities with shoulder elevation, shoulder abduction, wrist extension, wrist flexion, elbow extension, elbow flexion, seam finisher 4+5 strength appreciated in the bilateral lower extremities with hip flexion, knee extension, knee flexion, plantar flexion, dorsiflexion, EHL, FHL Reflexe 2/4 in all UE and LE Negative Xiang's, Babinski, clonus bilaterally Secial est: Logroll maneuver reproduces no pain in the bilateral lower extremities - Labs CBC & Chem 7: 03/12/22 07:01 03/12/22 07:01 Labs: Microbiology - Last 24 Hours (Table) 03/11/22 21:30 Urine Culture - Final Urine,Voided Assessment and Plan Assessment: Acute ischemic stroke involving the right medial temporal region Multilevel lumbar spondylosis with facet arthropathy Lower extremity paresthesias Other medical comorbidities Plan: Plan: Follow-up information will be placed in chart, patient will follow up as needed Patients symptoms mores contributed to acute ischemic stroke, neurology recommendations are appreciated GI and DVT prophylaxis per primary medical service Please contact our service with any questions regarding this patient Time with Patient: Less than 30
--- NOTE | 2022-03-13 13:37 | CT ---
EXAMINATION TYPE: CT brain wo con DATE OF EXAM: 03/13/2022 HISTORY: headache CT DLP: 1123.4 mGycm. Automated Exposure Control for Dose Reduction was Utilized. TECHNIQUE: CT scan of the head is performed without contrast. COMPARISON: CT brain 2 days ago. MRI brain one day ago FINDINGS: Evolving acute infarct right inferior occipital lobe extending into the posterior superior temporal lobe is redemonstrated correlating with MRI study one day earlier. No acute intracranial hem orrhage or midline shift . Globes are intact and visualized paranasal sinuses are clear. Old lacunar infarct superior right head of caudate nucleus level axial image 35 redemonstrated. IMPRESSION: No acute intracranial hemorrhage or midline shift. Evolving acute infarct right temporal occipital region redemonstrated.
[2022-03-13] MEDS: CLOPIDOGREL 75 MG TAB PO SCH (15:30)
--- NOTE | 2022-03-13 15:30 | P.PN ---
Subjective This is a pleasant 72 years old male with multiple medical problems who presents because of fall at home. Patient was trying to get up from after awaken up from his sleep from the lying position, heading to the restroom to Pee when he fell and hit his head. Patient denies loss of consciousness patient could not get up From the ground, friends helped Him up. Patient however denies room spinning, he keeps saying he felt like something pushed him. Patient complaining from headache after the fall. Patient states that his headache is a 9/10 in severity. Denies weakness or numbness, patient denies blurred vision, no slurred speech Also patient has been complaining from low back pain since this happened he states that his left thigh giving up on him, Patient has a small cut on the left eyebrow with stitches in place, one to is closed with no discharge or bleeding or cellulitis. .Patient is not sure if he has history of A. fib, denies anticoagulation. His car ferry master is Dr. Dempsey He said that his PCP sent him for MRI Monday and has been told that he has also stroke as per patient Patient denies dyspnea or chest pain. No urinary complaints His bowel looked good, he had 2 bowel movements yesterday, but still was performed and this is chronic problem for him. No vomiting. No smoking, occasional drinking alcohol. No illicit drugs. Vitals are stable and patient is afebrile, temperature is 90.7. Labs reviewed, WBCs 10, hemoglobin 11.6. Platelets normal. BNP is unremarkable. Glucose 144. Magnesium low at 1.3. Liver enzymes not significantly elevated, ALT slightly high at 79 Alcohol level less than 10. 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 No acute fracture. Moderate multilevel degenerative disc disease. Advanced hypertrophic facet arthropathy throughout. Moderate to severe spinal canal stenosis at L2-L3. Head CT and cervical CT: Mild left lateral scalp hematoma. Generalized atrophy. No acute intracranial abnormality, no acute fracture of the cervical spine, degenerative disease is. Probable 1.6 cm polyp of the left nasal cavity. Moderate chronic ethmoid sinus disease. Bilateral feet and ankles x-ray: No evidence of acute fracture, degenerative disease. chest x-ray: Borderline heart size and COPD changes. Some blunting of the posterior costophrenic angles favored to represent pleural parenchymal scarring to rather than trace effusion. Otherwise no acute process EKG showing atrial fibrillation with a right controlled at 82 In the emergency room he received normal saline and DTP vaccine 03/12/2022 Patient feels better today with no vision a problem and detail headache. He confirms about peripheral blind spots he had but he moves both arms symmetrically MRI:Acute infarct fairly moderate to large in size involving the inferior right occipital lobe extending to the posterior superior medial temporal lobe. Diffuse cerebral atrophy MRA no aneurysm dilatation Neurologist recommended to hold anticoagulation for 7 days Cardiology saw the patient for new onset A. fib and decrease metoprolol dose. Patient remains on ceftriaxone, Protonix home dose of aspirin 81 mg. 1 neurologist recommended to hold anticoagulation for 7 days I discussed the case with vascular surgery team noted for intervention regarding his aneurysmal dilatation 03/13/2022 Patient today continued to improve and still looks somewhat lethargic but overall improving Repeat CT of the brain is negative. The Plavix added. Continued on aspirin 81 mg Urine culture is negative spots ceftriaxone discontinued. Patient had a fever of 100.2. Neurology recommended to keep holding anticoagulation for new onset A. fib because of the large size of the stroke. Novelty Maker on the case, echocardiogram requested. Objective - Vital Signs Vital signs: Vital Signs Temp 99.1 F 03/13/22 08:05 Pulse 75 03/13/22 08:05 Resp 17 03/13/22 08:05 BP 134/76 03/13/22 08:05 Pulse Ox 97 03/13/22 08:05 FiO2 Intake & Output 03/12/22 03/13/22 03/13/22 18:59 06:59 18:59 Intake Total 237 100 Output Total 100 Balance 137 100 Intake: Oral 237 100 Output: Urine 100 Other: Voiding Method Urinal Toilet Toilet # Voids 1 2 0 # Bowel Movements 0 - Exam GENERAL: The patient is alert and oriented x3, not in any acute distress. Well developed, well nourished. HEENT: Pupils are round and equally reacting to light. EOMI. No scleral icterus. No conjunctival pallor. Normocephalic, atraumatic. No pharyngeal erythema. No thyromegaly. CARDIOVASCULAR: S1 and S2 present. No murmurs, rubs, or gallops. PULMONARY: Chest is clear to auscultation, no wheezing or crackles. ABDOMEN: Soft, nontender, nondistended, normoactive bowel sounds. No palpable organomegaly. MUSCULOSKELETAL: No joint swelling or deformity. EXTREMITIES: No cyanosis, clubbing, or pedal edema. NEUROLOGICAL: Gross neurological examination did not reveal any focal deficits. SKIN: No rashes. no petechiae. - Labs CBC & Chem 7: 03/12/22 07:01 03/12/22 07:01 Labs: Microbiology - Last 24 Hours (Table) 03/11/22 21:30 Urine Culture - Preliminary Urine,Voided Assessment and Plan Assessment: moderate to large infarct involving the inferior right occipital lobe. New onset A. fib. Rate controlled Moderate to severe spinal stenosis L2-L3, asymptomatic Left nasal sinus polyps 1.6 cm, follow-up outpatient Extensive obulated fusiform aneurysms throughout the abdominal aorta at 3.9 cm, follow-up outpatient Dr. Anderson Possible vertigo Hypertension History of GERD History of benign prostatic hypertrophy Hyperlipidemia Plan: this is a pleasant 72 years old male who presents with fall and acute stroke with left homonymous upper quadronopia Continue with the neuro check Continue hold anticoagulation 7 days total continue with metoprolol Neurology and cardiology on the case. Plavix added to aspirin daily which is home and he ntinue same treatment. Continue with symptomatic treatment. Resume home medication. Monitor lytes and vitals. DVT and GI prophylaxis. Further recommendations as per clinical course of the patient DVT prophylaxis: Subcutaneous heparin GI Prophylaxis: Pepcid PT/OT: Pending Prognosis is guarded
[2022-03-13] MEDS: ATORVASTATIN 80 MG TAB PO SCH (20:20)
--- NOTE | 2022-03-14 00:29 | P.PN ---
Subjective Progress Note Date: 03/13/22 Patient was seen for a follow-up. Patient offers no new complaints. He is laying comfortably in the bed. He continues to have visual disturbance. Objective - Vital Signs Vital signs: Vital Signs Temp 98.7 F 03/13/22 12:00 Pulse 94 03/13/22 12:00 Resp 18 03/13/22 12:00 BP 135/73 03/13/22 12:00 Pulse Ox 98 03/13/22 12:00 FiO2 Intake & Output 03/12/22 03/13/22 03/13/22 18:59 06:59 18:59 Intake Total 237 100 Output Total 100 Balance 137 100 Intake: Oral 237 100 Output: Urine 100 Other: Voiding Method Urinal Toilet Toilet # Voids 1 2 1 # Bowel Movements 0 - Exam Patient's examination is completely normal except for homonymous visual field defect in involving the left upper quadrant. Mental status, speech and language functions are normal. No pronator drift. No ataxia. Sensations equal with no neglect. - Labs CBC & Chem 7: 03/12/22 07:01 03/12/22 07:01 Labs: Microbiology - Last 24 Hours (Table) 03/11/22 21:30 Urine Culture - Final Urine,Voided Assessment and Plan Assessment: * Acute ischemic stroke involving the right medial temporal region, manifesting with homonymous visual field defect involving left upper quadrant of the visual field. Most likely cardioembolic. * New onset atrial fibrillation. * Status post fall, possible due to arrhythmia versus CVA. * Extensive lobulated Fusiform abdominal aortic aneurysm, on top of a couple saccular aneurysms. * Acute UTI, on ceftriaxone. * Coronary artery disease * Hypertension * Hyperlipidemia * X tobacco use Plan: * MRI of the brain confirmed an acute infarct, fairly moderate to large size involving the inferior right occipital lobe extending to the posterior superior medial temporal lobe. Background mild diffuse cerebral atrophy and chronic small vessel ischemic change with old right head of caudate nucleus lacunar infarct. I personally reviewed MRI, agree with the findings. * MRA of the head, negative for any cerebral aneurysm. * Repeat CT head performed today to rule out hemorrhage. Revealed no acute intracranial hemorrhage or midline shift. Evolving acute infarct right temporal occipital region. I personally reviewed CT head, agree with the findings. We will place patient on dual antiplatelet medication, with aspirin 81 mg and Plavix 75 mg daily. * Hold anticoagulation for 7 days due to large size infarct. Patient will need repeat CT head in 7 days, and if no hemorrhage, may start anticoagulation. Probably would stop antiplatelet medication when started on anticoagulation. * Hemoglobin A1c 6.0, fasting lipid panel pending. Continue high intensity statins, Lipitor 80 mg daily. * Cardiology on board * 2-D echo pending. * Carotid Doppler from 03/09/2022 showed mild bilateral atherosclerotic calcification of the carotid bulbs, with no hemodynamically significant stenos is. Antegrade flow in both vertebral arteries. * B12 803, folate 16.10, TSH 0.321, which is slightly low, and normal free T4 1.30. * Continue telemetry monitoring. * Vascular surgery seen patient for abdominal aortic aneurysm. No treatment necessary at this time. * DVT prophylaxis: Start heparin 5000 units subcu every 12 hours. * Dr. Uli Camacho to resume neurology service in the morning.
[2022-03-14] MEDS: PANTOPRAZOLE 40 MG TABLET PO SCH (06:18)
[2022-03-14] MEDS: SODIUM CHLORIDE 0.9% 1,000 ML IV SCH ×2 (06:18→11:13)
[2022-03-14 07:51] LABS: Basophils % (A) 0 %; Eosinophils # (A) 0.1 k/uL (0-0.7); Eosinophils % (A) 1 %; HCT 32.3 % (39.0-53.0); HGB 10.8 gm/dL (13.0-17.5); Lymphocytes # (A) 0.8 k/uL (1.0-4.8); Lymphocytes % (A) 12 %; MCH 31.5 pg (25.0-35.0); MCHC 33.4 g/dL (31.0-37.0); MCV 94.2 fL (80.0-100.0); Mean Platelet Volume 9.3; Monocytes # (A) 0.4 k/uL (0-1.0); Monocytes % (A) 6 %; Neutrophils # (A) 5.4 k/uL (1.3-7.7); Neutrophils % (A) 79 %; Platelet Count 132 k/uL (150-450); RBC 3.43 m/uL (4.30-5.90); RDW 13.2 % (11.5-15.5); WBC 6.8 k/uL (3.8-10.6)
[2022-03-14 08:08] LABS: African American GFR (CKD) >90 (>60 ml/min/1.73 sqM); Anion Gap 8 mmol/L; Blood Urea Nitrogen 12 mg/dL (9-20); Calcium 8.8 mg/dL (8.4-10.2); Carbon Dioxide 25 mmol/L (22-30); Chloride 103 mmol/L (98-107); Glucose 104 mg/dL (74-99); Magnesium 1.3 mg/dL (1.6-2.3); Non-African American GFR(CKD) 85 (>60 ml/min/1.73 sqM); Sodium 136 mmol/L (137-145)
[2022-03-14] MEDS: TAMSULOSIN 0.4 MG CAP.ER.24H PO SCH (09:40)
[2022-03-14] MEDS: ASPIRIN 81 MG PO SCH (09:40)
[2022-03-14] MEDS: CLOPIDOGREL 75 MG TAB PO SCH (09:40)
[2022-03-14] MEDS: hydrALAZINE HCL 25 MG TAB PO SCH (09:40)
[2022-03-14] MEDS: HEPARIN SODIUM,PORCINE/PF 5,000 UNIT/0.5 ML SYRINGE SQ SCH (09:41)
[2022-03-14] MEDS: buPROPion SR 100 MG TABLET.ER PO SCH (09:41)
[2022-03-14] MEDS: METOPROLOL TARTRATE 25 MG TAB PO SCH ×2 (09:41→17:06)
[2022-03-14] MEDS ORDERED: Magnesium Replacement Protocol 1 EACH MISC MISCELLANE PRN (10:17)
[2022-03-14 11:39] LABS: Chol/HDL Ratio 3.23 Ratio; LDL Cholesterol,Calculated 50.4 mg/dL (0.0-131.0)
[2022-03-14 12:24] VITALS: BP 110/70; PULSE 83; RESP 16; TEMP 98.3
[2022-03-14] MEDS: MAGNESIUM SULFATE-D5W PMX 1 GM in DEXTROSE/WATER 1 100ML.BAG IVPB SCH ×3 (12:25→15:28)
--- NOTE | 2022-03-14 14:01 | P.PN ---
Subjective This pleasant 72-year-old man with a known history of coronary artery disease with prior PCI to mid LAD, mid PLV 2009, mid LAD 2010, mid RCA in 2012, hypertension, dyslipidemia, ischemic cardiomyopathy, vertigo GERD, hypertension, SD, pneumonia, diverticuli, hernia repair. He follows in the office with Dr. Dempsey. We have been consulted to see the patient for new onset atrial fibrillation and lightheadedness. Patient presented to the ER and found to have a CVA. Patient's EKG showed atrial fibrillation with a controlled ventricle rate. Patient denies any prior history of atrial fibrillation. MRI of the brain revealed acute infarct moderate to large size involving the inferior right occipital lobe extending to the posterior superior medial temporal lobe. Neurology following, recommending holding anticoagulation for 7 days. Today patient is resting comfortably in bed in no signs of acute distress. He denies any further episodes of lightheadedness or falling since admission. Overall is feeling well. He continues to be in atrial flutter fibrillation with controlled ventricular rates. He denies palpitations chest pain, or shortness of breath. Blood pressure 110/70, heart rate 83. Currently on metoprolol tartrate 25mg TID, aspirin 81 mg daily, atorvastatin 80 mg nightly, Plavix 75 mg daily GENERAL: Well-appearing, well-nourished and in no acute distress. NECK: Supple without JVD or thyromegaly. LUNGS: Breath sounds clear to auscultation bilaterally. Respiration equal and unlabored. No wheezes, rales or rhonchi. HEART: Irregular rate and rhythm without murmurs, rubs or gallops. S1 and S2 heard. EXTREMITIES: Normal range of motion, no edema. No clubbing or cyanosis. Peripheral pulses intact. ASSESSMENT Acute ischemic stroke moderate to large size involving the inferior right occipital lobe extending to the posterior superior medial temporal lobe on MRI New onset paroxysmal atrial fibrillation with RVR [id number] score 5 Coronary artery disease with prior PCI to mid LAD, mid PLV 2008, mid LAD 2010, mid RCA in 2012 History of hypertension Dyslipidemia Ischemic cardiomyopathy History of vertigo GERD Former tobacc use PLAN Continue metoprolol tartrate 25mg TID Continue aspirin and statin 2D echocardiogram pending Per nephrology hold anticoagulation for 7 days, start 03/19/2022, and recommend repeat CT head in 7 days and if no hemorrhage ok to start anticoagulation. Per neurology stop Plavix when starting anticoagulation Further recommendations based on clinical course Nurse Practitioner note has been reviewed, I agree with a documented findings and plan of care. Patient was seen and examined. Objective - Vital Signs Vital signs: Vital Signs Temp 98.3 F 03/14/22 12:21 Pulse 83 03/14/22 12:21 Resp 16 03/14/22 12:21 BP 110/70 03/14/22 12:21 Pulse Ox 96 03/14/22 12:21 FiO2 Intake & Output 03/13/22 03/14/22 03/14/22 18:59 06:59 18:59 Intake Total 420 118 Balance 420 118 Intake: Oral 420 118 Other: Voiding Method Toilet Toilet # Voids 3 # Bowel Movements 0 - Labs CBC & Chem 7: 03/14/22 07:15 03/14/22 07:15 Labs: Abnormal Lab Results - Last 24 Hours (Table) 03/14/22 03/14/22 Range/Units 07:15 07:15 RBC 3.43 L (4.30-5.90) m/uL Hgb 10.8 L (13.0-17.5) gm/dL Hct 32.3 L (39.0-53.0) % Plt Count 132 L (150-450) k/uL Lymphocytes # 0.8 L (1.0-4.8) k/uL Sodium 136 L (137-145) mmol/L Glucose 104 H (74-99) mg/dL Magnesium 1.3 L (1.6-2.3) mg/dL HDL Cholesterol 31.60 L (40.00-60.00) mg/dL Microbiology - Last 24 Hours (Table) 03/11/22 21:30 Urine Culture - Final Urine,Voided
--- NOTE | 2022-03-14 17:57 | CA ---
Transthoracic Echo Report Name: Jose Carlos Chester Age: 72 Gender: M : 1950 Exam Date: 03/14/2022 10:27 Exam Location: [facility] Ht (in): 72 Wt (lb): 170 Ordering Physician: Amado Soto MD Attending/Referring Phys: [id number], Charles Supervisor [employer] Beth Garcia, RD Procedure CPT: Indications: Rule out heart disease Cardiac Hx: Technical Quality: Good Contrast 1: Total Dose (mL): Contrast 2: Total Dose (mL): MEASUREMENTS (Male / Female) Normal Values 2D ECHO LV Diastolic Diameter PLAX 5.1 cm 4.2 - 5.9 / 3.9 - 5.3 cm LV Systolic Diameter PLAX 4.0 cm IVS Diastolic Thickness 1.4 cm 0.6 - 1.0 / 0.6 - 0.9 cm LVPW Diastolic Thickness 1.5 cm 0.6 - 1.0 / 0.6 - 0.9 cm LV Relative Wall Thickness 0.6 RV Internal Dim ED PLAX 3.7 cm LA Systolic Diameter LX 4.7 cm 3.0 - 4.0 / 2.7 - 3.8 cm LA Volume 101.1 cm??? 18 - 58 / 22 - 52 cm??? M-MODE Aortic Root Diameter MM 3.3 cm MV E Point Septal Separation 0.4 cm AV Cusp Separation MM 2.4 cm DOPPLER AV Peak Velocity 125.3 cm/s AV Peak Gradient 6.3 mmHg AI Peak Velocity 398.3 cm/s AI Peak Gradient 63.5 mmHg AI Pressure Half Time 1082.5 ms MV Area PHT 5.0 cm??? MV Deceleration Time 277.6 ms TR Peak Velocity 298.8 cm/s TR Peak Gradient 35.7 mmHg Right Ventricular Systolic Press 40.7 mmHg FINDINGS Left Ventricle Left ventricular ejection fraction is estimated at 45 %. Left ventricular cavity size normal. Mildly increased septal wall thickness. Apical septum hypokinesis Right Ventricle Mild right ventricular dilatation. Mild pulmonary hypertension. Right Atrium Normal right atrial size. Left Atrium Mildly increased left atrial diameter. Severely increased left atrial volume. Mildly increased left atrial area. No evidence for an atrial septal defect. Mitral Valve Mitral valve thickened. Moderate mitral regurgitation. Aortic Valve Focal thickening of the aortic valve cusps. Mild aortic regurgitation. Tricuspid Valve Mild tricuspid regurgitation. Pulmonic Valve Trace pulmonic regurgitation. Pericardium Normal pericardium. No pericardial effusion. Aorta Normal size aortic root and proximal ascending aorta. CONCLUSIONS Reduced LV systolic function ejection fraction at best 45% with distal septal apical akinesis and anterior and anterolateral hypokinesis Apicoseptal aneurysm Previewed by: Dr. Declan Millan MD (Electronically Signed) Final Date: 14 March 2022 17:56
--- NOTE | 2022-03-16 15:24 | P.DS ---
Providers Date of admission: 03/11/22 13:02 Expected date of discharge: 03/14/22 Attending physician: Amado Soto MD Consults: 03/11/22 15:13 Consult Physician Urgent Consulting Provider: Nino Scott Consult Reason/Comments: dizziness and fall, spinal steonsis Do you want consulting provider notified?: Yes Consult Physician Urgent Consulting Provider: Keyur Dempsey Consult Reason/Comments: a fib , lightheadedness Do you want consulting provider notified?: Yes 03/11/22 22:31 Consult Physician Routine Consulting Provider: [facility] Consult Reason/Comments: Numbness of lower extremities Do you want consulting provider notified?: Yes, Notify in am 03/11/22 22:33 Consult Physician Routine Consulting Provider: Rikki Anderson Consult Reason/Comments: Multiple Abdominal aneurysm Do you want consulting provider notified?: Yes, Notify in am Primary care physician: Neal Knowles Hospital Course: Final diagnosis moderate to large infarct involving the inferior right occipital lobe. New onset A. fib. Rate controlled Moderate to severe spinal stenosis L2-L3, asymptomatic Left nasal sinus polyps 1.6 cm, follow-up outpatient Extensive obulated fusiform aneurysms throughout the abdominal aorta at 3.9 cm, follow-up outpatient Dr. Anderson Possible vertigo Hypertension History of GERD History of benign prostatic hypertrophy Hyperlipidemia Discharge disposition Patient is being discharged in a stable condition with guarded prognosis to home with home care. Patient will follow-up with Dr. Knowles in the outpatient setting upon discharge. Patient is to follow up with neurology as well as orthopedics as needed outpatient as scheduled. Patient was given a prescription for a repeat CT of the brain in 7 days per neurology recommendations although patient will be required to follow-up with his primary care provider to obtain prior authorization for this. Total time taken is greater than 35 minutes. Hospital course This is a 72-year-old male who was recently admitted with recent fall striking his head and unable to get up requiring assistance and also having some low back pain. Patient was under neurological evaluation and had a brain scan showing a moderate to large infarct involving the inferior right occipital lobe. Neurology recommending holding anticoagulation for 7 days with follow-up repeat computed tomography scan and will continue on aspirin and Plavix recommending close neurology follow-up. If patient is to be started on anticoagulation, then neurology here in hospital recommending discontinuing the aspirin and Plavix after evaluation from neurology. Patient was working with physical therapy and doing well and has been cleared by neurology. Patient would like to go home. Currently no reports of chest pain, shortness of breath, or palpitations. Patient is afebrile. No reports of nausea or vomiting and patient is tolerating diet. Patient will be discharged home today. Guarded prognosis. Physical exam: Gen: This is a 72-year-old male awake, alert and oriented, well-developed, well- nourished HEENT: Head is atraumatic, normocephalic. Pupils equal, round. Sclerae is anicteric. NECK: Supple. No JVD. No lymphadenopathy. No thyromegaly. LUNGS: Clear to auscultation. No wheezes or rhonchi. No intercostal retractions. HEART: Regular rate and rhythm. No murmur. ABDOMEN: Soft. Bowel sounds are present. No masses. No tenderness. EXTREMITIES: No pedal edema. No calf tenderness. NEUROLOGICAL: Patient is awake, alert and oriented x3. Cranial nerves 2 through 12 are grossly intact. Please refer to medication reconciliation sheet for a list of medications. The impression and plan of care has been dictated by Kelsi Dunn, Nurse Practitioner as directed. Dr. Seun MD I have performed a history and examination and MDM of this patient, discussed the same with the dictator, and agree with the dictator's assessment and plan as written ,documented as a scribe. Based on total visit time, I have performed more than 50% of the visit. Patient Condition at Discharge: Stable Plan - Discharge Summary New Discharge Prescriptions: New Metoprolol Tartrate [Lopressor] 25 mg PO TID #90 tab Acetaminophen Tab [Tylenol] 650 mg PO Q6HR PRN tab PRN Reason: Mild Pain Or Fever > 100.5 Clopidogrel [Plavix] 75 mg PO DAILY 30 Days #30 tab Continue Nitroglycerin Sl Tabs [Nitrostat] 0.4 mg SL Q5M PRN PRN Reason: Pain Atorvastatin [Lipitor] 80 mg PO HS Aspirin 81 mg PO DAILY buPROPion HCL [Wellbutrin SR] 200 mg PO BID Esomeprazole Magnesium [NexIUM] 40 mg PO DAILY Ketoconazole 2% Shampoo [Nizoral] 1 applic TOPICAL DAILY PRN PRN Reason: ROSACEA Tamsulosin HCl [Flomax] 0.4 mg PO DAILY Triamcinolone 0.1% Ointment [Kenalog 0.1% Ointment] 1 applic TOPICAL Q48H PRN PRN Reason: ROSACEA hydrALAZINE HCL [Apresoline] 25 mg PO DAILY metroNIDAZOLE 0.75% CREAM [Metrocream 0.75%] 1 applic TOPICAL DAILY PRN PRN Reason: ROSACEA Multivit-Min/FA/Lycopen/Lutein [Centrum Silver Men Tablet] 1 tab PO DAILY Discontinued Metoprolol Tartrate [Lopressor] 25 mg PO DAILY Discharge Medication List Aspirin 81 mg PO DAILY 10/21/13 [History] Atorvastatin [Lipitor] 80 mg PO HS 10/21/13 [History] Nitroglycerin Sl Tabs [Nitrostat] 0.4 mg SL Q5M PRN 10/21/13 [History] Esomeprazole Magnesium [NexIUM] 40 mg PO DAILY 03/11/22 [History] Ketoconazole 2% Shampoo [Nizoral] 1 applic TOPICAL DAILY PRN 03/11/22 [History] Multivit-Min/FA/Lycopen/Lutein [Centrum Silver Men Tablet] 1 tab PO DAILY 03/11/22 [History] Tamsulosin HCl [Flomax] 0.4 mg PO DAILY 03/11/22 [History] Triamcinolone 0.1% Ointment [Kenalog 0.1% Ointment] 1 applic TOPICAL Q48H PRN 03/11/22 [History] buPROPion HCL [Wellbutrin SR] 200 mg PO BID 03/11/22 [History] hydrALAZINE HCL [Apresoline] 25 mg PO DAILY 03/11/22 [History] metroNIDAZOLE 0.75% CREAM [Metrocream 0.75%] 1 applic TOPICAL DAILY PRN 03/11/22 [History] Acetaminophen Tab [Tylenol] 650 mg PO Q6HR PRN tab 03/14/22 [Rx] Clopidogrel [Plavix] 75 mg PO DAILY 30 Days #30 tab 03/14/22 [Rx] Metoprolol Tartrate [Lopressor] 25 mg PO TID #90 tab 03/14/22 [Rx] Follow up Appointment(s)/Referral(s): [facility], [NON-STAFF] - Neal Knowles DO [Primary Care Provider] - 1-2 days Grabiel March DO [Doctor of Osteopathic Medicine] - As Needed Tommy Swan MD [REFERRING] - 1-2 Days Ambulatory/Diagnostic Orders: Basic Metabolic Panel [LAB.AMB] Time Frame: 3 Days, Location: None Selected Activity/Diet/Wound Care/Special Instructions: Activity Limited until follow-up Follow-up with neurology this week Follow-up with primary care provider on discharge Continue taking medications as prescribed Continue heart healthy diet Recommend repeat labs in 2-3 days to monitor electrolytes Per neurology recommendations patient is to hold anticoagulation for 7 days due to large size infarct and will need a repeat CT in 7 days from today to monitor for any hemorrhage and then may start anticoagulation. Patient is to continue on aspirin and Plavix for these 7 days before starting an anticoagulant and other recommendations from neurology would be to stop antiplatelet medication when being started on anticoagulant. This to be discussed with neurology and/or primary care provider caring for the patient Prescription provided for repeat CT brain to be done in one week and outpatient testing center would need to be called to arrange this Discharge Disposition: HOME WITH HOME HEALTH SERVICES
== END 2022-03-14 18:26 | disposition home health service (06) | DRG 65 ==
LOC: EC 08:23 → 3SCARD 13:02
PROVIDERS: ADMIT Internal Medicine; ATTEND Internal Medicine
PROC: 3E0234Z Introduction of Serum, Toxoid and Vaccine into Muscle, Percutaneous Approach (ICD-10-PCS; principal; 2022-03-11)
PROC: 0HQ1XZZ Repair Face Skin, External Approach (ICD-10-PCS; 2022-03-11)
DX: I63.9 Cerebral infarction, unspecified (principal); I48.19 Other persistent atrial fibrillation; N39.0 Urinary tract infection, site not specified; R62.7 Adult failure to thrive; E86.0 Dehydration; E83.42 Hypomagnesemia; E78.5 Hyperlipidemia, unspecified; J44.9 Chronic obstructive pulmonary disease, unspecified; Z23 Encounter for immunization; Z28.310 Unvaccinated for COVID-19; S01.112A Laceration without foreign body of left eyelid and periocular area, initial encounter; H53.40 Unspecified visual field defects; I10 Essential (primary) hypertension; I71.40 Abdominal aortic aneurysm, without rupture, unspecified; M48.061 Spinal stenosis, lumbar region without neurogenic claudication; M47.816 Spondylosis without myelopathy or radiculopathy, lumbar region; M48.15 Ankylosing hyperostosis [Forestier], thoracolumbar region; N40.0 Benign prostatic hyperplasia without lower urinary tract symptoms; I25.5 Ischemic cardiomyopathy; K52.9 Noninfective gastroenteritis and colitis, unspecified; J32.2 Chronic ethmoidal sinusitis; J33.8 Other polyp of sinus; I25.10 Atherosclerotic heart disease of native coronary artery without angina pectoris; K21.9 Gastro-esophageal reflux disease without esophagitis; M25.571 Pain in right ankle and joints of right foot; M25.572 Pain in left ankle and joints of left foot; M54.2 Cervicalgia; M79.671 Pain in right foot; M79.672 Pain in left foot; M25.559 Pain in unspecified hip; I25.2 Old myocardial infarction; F32.A Depression, unspecified; R29.6 Repeated falls; Z79.82 Long term (current) use of aspirin; Z79.899 Other long term (current) drug therapy; Z91.81 History of falling; Z95.5 Presence of coronary angioplasty implant and graft; Z87.891 Personal history of nicotine dependence; W01.190A Fall on same level from slipping, tripping and stumbling with subsequent striking against furniture, initial encounter; W10.9XXA Fall (on) (from) unspecified stairs and steps, initial encounter; Y92.013 Bedroom of single-family (private) house as the place of occurrence of the external cause; Z82.3 Family history of stroke
CPT/HCPCS: 36415; 70450; 70544; 70551; 71046; 72125; 72131; 80048; 80053; 80061; 80076; 80306; 80320; 81001; 82550; 82607; 82746; 83036; 83690; 83735; 84439; 84443; 84484; 85025; 87086; 90471; 90715; 93005; 93306; 99285

== ENCOUNTER → 2022-05-18 | Day surgery (SDC) | payer MEDICARE ==
[2022-05-13 16:00] VITALS: BMI 21.3
[~2022-05-18] MED LIST: ATORVASTATIN 80 MG TAB PO SCH; LACTATED RINGERS 1,000 ML IV SCH; LIDOCAINE 2% INJ 20 MG/ML (2 ML VIAL) ONE; MAGNESIUM OXIDE 400 MG TAB PO SCH; NON FORMULARY DRUG (Esomeprazole Magnesium [Nexium] 40 MG Capsule.Dr) PO SCH; PROPOFOL 10 MG/ML 20 ML VIAL IV ONE; RIVAROXABAN 20 MG TAB PO SCH; SODIUM CHLORIDE 0.9% 1,000 ML IV SCH; TAMSULOSIN 0.4 MG CAP.ER.24H PO SCH; hydrALAZINE HCL 25 MG TAB PO SCH
[2022-05-18 11:27] LABS: Calcium 10.2 mg/dL (8.4-10.2); Potassium 4.5 mmol/L (3.5-5.1)
--- NOTE | 2022-05-18 11:49 | P.PCN ---
Date of Procedure: 05/18/22 Description of Procedure: Indication: Atrial fibrillation Procedure Description: After explaining the procedure to the patient, it's risk and complications, blood pressure, heart rate and O2 saturation were monitored. The throat was sprayed with Cetacaine. Patient received sedation per anesthesia department. The probe was introduced into the esophagus without difficulty. Images were obtained. Following that, the probe was removed. There was no immediate complication. Findings: Left atrial size is mildly dilated, left atrial appendage is normal. The ventricle size is normal with moderate global hypokinesis, ejection fraction 45%. The aortic valve revealed mild thickening of the aortic valve leaflets. Mitral valve revealed mild redundancy with thickening of the leaflets. Tricuspid valve appears to be normal, pulmonic valve is normal. Descending thoracic aorta revealed mild to moderate atherosclerotic changes. No pericardial effusion was noted. Contrast bubble study revealed no shunting across the intra-atrial septum Doppler: Pulse wave and color Doppler were obtained, in revealed moderate multi-jet mitral regurgitation, moderate tricuspid with mild aortic and pulmonic regurgitation. There is no shunting across the intra-atrial septum. Conclusion: 1. Mildly dilated left atrium with normal appearance of the left atrial appendage 2. Normal ventricle size with moderate global hypokinesis 3. And moderate mitral and tricuspid regurgitation with no evidence of pulmonary hypertension 4. Mild aortic and pulmonic regurgitation 5. Mild atherosclerotic changes of the descending thoracic aorta 6. No shunting across the intra-atrial septum. Cardioversion: After performing MAGNUS and obtaining sedated state synchronize biphasic cardioversion using 150 J was performed with restoring sinus mechanism. There was no immediate complications.
[2022-05-18 11:50] VITALS: TEMP 97.3
[2022-05-18 12:11] VITALS: BP 108/68; PULSE 66; RESP 15
== END | disposition home or self-care (01) ==
LOC: CATHCVL 10:19
PROVIDERS: ATTEND Internal Medicine Interventional Cardiology
DX: I48.3 Typical atrial flutter (principal); I08.1 Rheumatic disorders of both mitral and tricuspid valves; I10 Essential (primary) hypertension; E78.2 Mixed hyperlipidemia; I25.10 Atherosclerotic heart disease of native coronary artery without angina pectoris; I25.5 Ischemic cardiomyopathy; F32.A Depression, unspecified; Z82.49 Family history of ischemic heart disease and other diseases of the circulatory system; Z79.899 Other long term (current) drug therapy; Z88.8 Allergy status to other drugs, medicaments and biological substances
CPT/HCPCS: 93312; 93320; 93325; 92960; 80048; J2704; J2001

== ENCOUNTER → 2022-06-14 | Outpatient (CLI) | payer MEDICARE ==
--- NOTE | 2022-06-15 13:06 | MR ---
EXAMINATION TYPE: MR angio head wo/neck wo/w con DATE OF EXAM: 06/14/2022 12:37 PM CLINICAL INDICATION:Male, 72 years old with history of I63.9 CEREBRAL INFARCTION, R42 DIZZINESS; COMPARISON: CT head 03/12/2022 Technical: MRA brain: 3-D [id number] Axial with MIP and 3-D reconstruction. Performed on a separate workstat ion. MRA neck: Multiplanar, multi-sequence imaging as well as [id number] and phase was performed extra cranial vasculature of the neck. 3-D reformatted images and maximum intensity projection reformatted images were submitted for evaluation, these are performed on a separate workstation. IV Contrast: None 7 cc Gadavist Findings: Vertebral arteries: The vertebral arteries are patent. The left vertebral artery is dominant. Basilar artery: The basilar artery is intact. The basilar artery bifurcation is normal. Internal Carotid arteries: The cervical, petrous, cavernous and supraclinoid segments are normal. BLANCA: Patent with no evidence of aneurysm. ACOM: Present without evidence of aneurysm. MCA: Patent with no evidence of aneurysm. PURCHASING DEPARTMENT CLERK: Patent with no evidence of aneurysm. PCOM: Hypoplastic bilaterally. RIGHT CAROTID SYSTEM: The common carotid artery is patent. The carotid bifurcations that she no evide nce for hemodynamically significant stenosis. The internal carotid arteries patent. LEFT CAROTID SYSTEM: The common carotid artery is patent. The carotid bifurcations demonstrate ather osclerotic plaque with at least 25% stenosis. The internal carotid arteries patent. The origins of the great vessels and vertebral arteries appear unremarkable. The left vertebral rama ry is dominant. IMPRESSION: 1. No evidence of intracranial aneurysm or significant stenosis. 2. No evidence of significant stenosis at the carotid bifurcations. The carotid and vertebral arteri es are patent. 3. No evidence aneurysm.
== END | disposition home or self-care (01) ==
LOC: RADMRIMAIN 11:29
PROVIDERS: ATTEND Psychiatry & Neurology Neurology
DX: I63.9 Cerebral infarction, unspecified (principal); R42 Dizziness and giddiness; Z86.73 Personal history of transient ischemic attack (TIA), and cerebral infarction without residual deficits
CPT/HCPCS: 70544; 70549; A9585

== ENCOUNTER 2022-10-11 09:53 | Day surgery (SDC) | payer MEDICARE ==
[2022-10-07 18:29] VITALS: BMI 20.3
[~2022-10-11 09:53] MED LIST changes: -ATORVASTATIN 80 MG TAB PO SCH; +LIDOCAINE 1% (10MG/ML) FOR IV START INTRADERMA PRN; -LIDOCAINE 2% INJ 20 MG/ML (2 ML VIAL) ONE; -MAGNESIUM OXIDE 400 MG TAB PO SCH; -NON FORMULARY DRUG (Esomeprazole Magnesium [Nexium] 40 MG Capsule.Dr) PO SCH; -PROPOFOL 10 MG/ML 20 ML VIAL IV ONE; -RIVAROXABAN 20 MG TAB PO SCH; -SODIUM CHLORIDE 0.9% 1,000 ML IV SCH; -TAMSULOSIN 0.4 MG CAP.ER.24H PO SCH; -hydrALAZINE HCL 25 MG TAB PO SCH
[2022-10-11 10:26] VITALS: TEMP 97.5
[2022-10-11] MEDS ORDERED: LACTATED RINGERS 1,000 ML IV ONE (10:26)
[2022-10-11] MEDS ORDERED: PROPOFOL 10 MG/ML 20 ML VIAL IV ONE (11:34)
--- NOTE | 2022-10-11 11:50 | P.PCN ---
Date of Procedure: 10/11/22 Procedure(s) Performed: BRIEF HISTORY: Patient is a 72-year-old pleasant white male scheduled for an elective colonoscopy as a part of evaluation of progressive weight loss and change in bowel habits PROCEDURE PERFORMED: Colonoscopy with biopsy. PREOPERATIVE DIAGNOSIS: Progressive weight loss and change in bowel habits. IV sedation per Anesthesia. PROCEDURE: After informed consent was obtained, the patient, was brought into the endoscopy unit. IV sedation was administered by Anesthesia under continuous monitoring. Digital rectal examination was normal. Initially the Olympus CF-160 flexible video colonoscope was then inserted in the rectum, gradually advanced into the cecum without any difficulty. Careful examination was performed as the scope was gradually being withdrawn. Ileocecal valve and the appendiceal orifice were visualized and appeared normal. Prep was excellent. Mucosa of the cecum, appeared normal. In the ascending colon there was a 5 mm sessile polyp removed by cold biopsy. Rest of the ascending colon, transverse colon, descending colon, sigmoid colon, and rectum appeared normal. Scattered left sided diverticulosis. Retroflexion was performed in the rectum and no lesions were seen. The patient tolerated the procedure well. IMPRESSION: 5 mm ascending colon polyp status post cold biopsy Moderate sigmoid diverticulosis RECOMMENDATIONS: Findings of this examination were discussed with the patient as well as his family. He was advised to follow with the biopsy results. If the biopsy results adenoma he can have a repeat colonoscopy in 5 years.
[2022-10-11 12:05] VITALS: BP 143/68; PULSE 58; RESP 20
== END 2022-10-11 12:30 | disposition home or self-care (01) ==
LOC: ORWHC2ENDO 09:53
PROVIDERS: ATTEND Internal Medicine Gastroenterology
DX: K63.5 Polyp of colon (principal); K57.30 Diverticulosis of large intestine without perforation or abscess without bleeding; I25.2 Old myocardial infarction; I10 Essential (primary) hypertension; E78.5 Hyperlipidemia, unspecified; I71.40 Abdominal aortic aneurysm, without rupture, unspecified; Z86.73 Personal history of transient ischemic attack (TIA), and cerebral infarction without residual deficits; K21.9 Gastro-esophageal reflux disease without esophagitis; Z88.5 Allergy status to narcotic agent; Z79.899 Other long term (current) drug therapy
CPT/HCPCS: 88305; 45380; J2704

== ENCOUNTER 2023-05-16 15:49 | Emergency (ER) | payer MEDICARE ==
[2023-05-16 16:33] VITALS: BP 125/68; PULSE 60; RESP 18; TEMP 97.8
--- NOTE | 2023-05-16 16:36 | ED ---
General Adult HPI - General Source: patient, RN notes reviewed Mode of arrival: ambulatory <Tarik Kaplan - Last Filed: 05/16/23 16:35> - General Source: patient, RN notes reviewed Mode of arrival: ambulatory Limitations: no limitations <Ines Miranda - Last Filed: 05/16/23 22:03> - General Chief complaint: ENT Stated complaint: hearing aide piece stuck in right side Time Seen by Provider: 05/16/23 16:35 - History of Present Illness Initial comments: Patient is 73-year-old male presented ER with chief complaint of ear piece stuck in ear. Patient reports while removing his right hearing aid the and got stuck in his ear. He is unable to move it. Patient denies any pain. Patient has no other complaints at this time. (Tarik Kaplan) This is a 73-year-old male who presents to the emergency department for concerns of a piece of his hearing aid being stuck in his ear. States that the ear tip of the right hearing aid seemed to get stuck in his ear when trying to remove it. States that he went to a family member's house and several of them tried to remove it, but were unable to do so successfully. Denies any pain associated with this. States that he feels like his ear is full. (Ines Miranda) - Related Data Home Medications Medication Instructions Recorded Confirmed Atorvastatin [Lipitor] 80 mg PO HS 10/21/13 10/07/22 Esomeprazole Magnesium [NexIUM] 40 mg PO DAILY 03/11/22 10/07/22 Tamsulosin HCl [Flomax] 0.4 mg PO HS 03/11/22 10/07/22 buPROPion HCL [Wellbutrin SR] 200 mg PO BID 03/11/22 10/07/22 hydrALAZINE HCL [Apresoline] 25 mg PO BID 03/11/22 10/07/22 Magnesium Oxide [Mag-Ox] 400 mg PO DAILY 05/13/22 10/07/22 Rivaroxaban [Xarelto] 20 mg PO HS 05/13/22 10/07/22 Ezetimibe [Zetia] 10 mg PO DAILY 10/07/22 10/07/22 Metoprolol Tartrate [Lopressor] 50 mg PO BID 10/07/22 10/07/22 Allergies Allergy/AdvReac Type Severity Reaction Status Date / Time perfume Allergy Rash/Hives Verified 05/16/23 16:22 sertraline [From Zoloft] Allergy Rash/Hives Verified 05/16/23 16:22 Review of Systems ROS Other: All systems not noted in ROS Statement are negative. <Tarik Kaplan - Last Filed: 05/16/23 16:35> ROS Other: All systems not noted in ROS Statement are negative. <Ines Miranda - Last Filed: 05/16/23 22:03> ROS Statement: Those systems with pertinent positive or pertinent negative responses have been documented in the HPI. Past Medical History Past Medical History: Coronary Artery Disease (CAD), Chest Pain / Angina, CVA/TIA, GERD/Reflux, Hyperlipidemia, Hypertension, Myocardial Infarction (MA), Prostate Disorder Additional Past Medical History / Comment(s): Chronic diarrhea-COLITIS, diverticuli, MA 2008 , CVA-03/17/22- SOME MILD CONFUSION-MENTAL RECALL SLOW, LT ABD. ANEURSYM-DOCTOR'S MONITORING, Last Myocardial Infarction Date:: 2008 History of Any Multi-Drug Resistant Organisms: None Reported Past Surgical History: Heart Catheterization With Stent, Hernia Repair, Orthopedic Surgery Additional Past Surgical History / Comment(s): Bilateral inguinal hernia repair, tendon repair right pinky finger, stent October 2008, November 2008, 2009 (stent replaced), 2012. COLONOSCOPY, Past Anesthesia/Blood Transfusion Reactions: No Reported Reaction Date of Last Stent Placement:: 02/2013 Past Psychological History: Depression Smoking Status: Former smoker Past Alcohol Use History: None Reported Past Drug Use History: None Reported - Past Family History Father Family Medical History: Coronary Artery Disease (CAD), Deep Vein Thrombosis (DVT), Renal Disease Additional Family Medical History / Comment(s): Dad's side of the family had blood clots. Mother Family Medical History: Diabetes Mellitus Additional Family Medical History / Comment(s): Hepatitis B Brother(s) Family Medical History: CVA/TIA, Renal Disease Additional Family Medical History / Comment(s): HIV <Tarik Kaplan - Last Filed: 05/16/23 16:35> General Exam General appearance: alert, in no apparent distress <Tarik Kaplan - Last Filed: 05/16/23 16:35> Limitations: no limitations General appearance: alert, in no apparent distress Head exam: Present: atraumatic, normocephalic, normal inspection ENT exam: Present: other (Right TM cerumen impaction. No obvious foreign bodies. No canal erythema.) Respiratory exam: Present: normal lung sounds bilaterally. Absent: respiratory distress, wheezes, rales, rhonchi, stridor Cardiovascular Exam: Present: regular rate, normal rhythm, normal heart sounds. Absent: systolic murmur, diastolic murmur, rubs, gallop, clicks Neurological exam: Present: alert, oriented X3, CN II-XII intact Psychiatric exam: Present: normal affect, normal mood Skin exam: Present: warm, dry, intact, normal color. Absent: rash <Ines Miranda - Last Filed: 05/16/23 22:03> Course Vital Signs 05/16/23 16:19 Temperature 97.8 F Pulse Rate 60 Respiratory 18 Rate Blood Pressure 125/68 O2 Sat by Pulse 94 L Oximetry Medical Decision Making <Tarik Kaplan - Last Filed: 05/16/23 16:35> <Ines Miranda - Last Filed: 05/16/23 22:03> - Medical Decision Making I performed the quick note portion of the exam. Electronically signed by Tarik Kaplan PA-C (Tarik Kaplan) This is a 73-year-old male who presents to the emergency department for concerns of a foreign body in his right ear. Was pt. sent in by a medical professional or institution? @ -No Did you speak to anyone other than the patient for history? @ -No Did you review nursing and triage notes? @ -Yes, and I agree, it is accurate with regards to the patient's symptoms. Were old charts reviewed? @ -No Differential Diagnosis? @ -Differential Ear Fullness: Foreign body, tumor, cerumen impaction, this is not meant to be an all-inclusive list. EKG interpreted by me (3pts min.)? @ -Not obtained X-rays interpreted by me (1pt min.)? @ -Not obtained CT interpreted by me (1pt min.)? @ -Not obtained U/S interpreted by me (1pt. min.)? @ -Not obtained What testing was considered but not performed? (CT, X-rays, U/S, labs)? Why? @ -None What meds were considered but not given? Why? @ -None Did you discuss the management of the patient with other professionals? @ -No Did you reconcile home meds? @ -No Was smoking cessation discussed for >3mins.? @ -No Was critical care preformed (if so, how long)? @ -No Were there social determinants of health that impacted care today? How? (Homelessness, low income, unemployed, alcoholism, drug addiction, transportation, low edu. Level, literacy, decrease access to med. care, [place] [facility], rehab)? @ -No Was there de-escalation of care discussed even if they declined? (Discuss DNR or withdrawal of care, Hospice)? @ -No What co-morbidities impacted this encounter? (DM, HTN, Smoking, COPD, CAD, Cancer, CVA, Hep., AIDS, mental health diagnosis, sleep apnea, morbid obesity)? @ -None Was patient admitted / discharged? @ -Discharged. Physical examination consistent with cerumen impaction. No foreign body was visualized. I did have another colleague evaluate the patient as well, and again no foreign body was visualized. Advised that this most likely fell out at some point, as there is only a hard piece of cerumen present at this time and there is nowhere else for the hearing aid piece to go. Advised he checked with family members to see if they can find it at their house where they were trying to remove it earlier. We also discussed [id number] management of cerumen impaction such as using debrox drops. Undiagnosed new problem with uncertain prognosis? @ -None Drug Therapy requiring intensive monitoring for toxicity (Heparin, Nitro, Insulin, Cardizem)? @ -None Were any procedures done? @ -None Diagnosis/symptom? @ -Cerumen impaction Acute, or Chronic, or Acute on Chronic? @ -Acute Uncomplicated (without systemic symptoms) or Complicated (systemic symptoms)? @ -Uncomplicated Side effects of treatment? @ -None Exacerbation, Progression, or Severe Exacerbation] @ -Not applicable Poses a threat to life or bodily function? @ -No Return precautions reviewed in depth, the patient is instructed to return to the emergency department with any new, worsening, or concerning symptoms. Patient verbalized understanding. This case was discussed in detail with the attending ED physician, Dr. Foley Presentation, findings, and treatment plan discussed in detail as well. (Ines Miranda) Disposition <Tarik Kaplan - Last Filed: 05/16/23 16:35> Is patient prescribed a controlled substance at d/c from ED?: No <Ines Miranda - Last Filed: 05/16/23 22:03> Clinical Impression: Impacted cerumen Disposition: HOME SELF-CARE Instructions (If sedation given, give patient instructions): Carbamide Peroxide (Into the ear), Amyloidosis (ED) Additional Instructions: Return to the emergency department with any new, worsening, or concerning symptoms. You can use [id number] eardrops or hydrogen peroxide to help with the earwax buildup. You can also follow up with your primary care provider to see if they can irrigate your ears. Follow up with your primary care provider in 1-2 days. Referrals: Neal Knowles, [Primary Care Provider] - 1-2 days
== END 2023-05-16 20:16 | disposition home or self-care (01) ==
LOC: EC 15:49
DX: H61.21 Impacted cerumen, right ear (principal); I25.10 Atherosclerotic heart disease of native coronary artery without angina pectoris; K21.9 Gastro-esophageal reflux disease without esophagitis; E78.5 Hyperlipidemia, unspecified; I10 Essential (primary) hypertension; I25.2 Old myocardial infarction; F32.A Depression, unspecified; Z79.899 Other long term (current) drug therapy; Z88.8 Allergy status to other drugs, medicaments and biological substances; Z79.01 Long term (current) use of anticoagulants; Z87.891 Personal history of nicotine dependence
CPT/HCPCS: 99282

== ENCOUNTER → 2024-04-04 | Outpatient (CLI) | payer MEDICARE, SELFPAY ==
--- NOTE | 2024-04-05 10:54 | PE ---
EXAMINATION TYPE: PET CT fusion whole body DATE OF EXAM: 04/04/2024 CLINICAL INDICATION:Male, 74 years old with history of C43.8 melanoma; TECHNIQUE: Following the intravenous administration of 9.37 mCi of F-18 FDG, whole body images are performed from the skull vertex through the feet. Images are reviewed on the computer in the coronal , axial, and sagittal planes. Reconstructed rotating images are created on independent workstation a nd reviewed on the computer. A non-contrast CT is performed in conjunction with the PET scan. Gluco se level 93 mg/dL CT DLP: 678.56 mGycm, Automated exposure control for dose reduction was used. COMPARISON: CT 03/13/2022, PET/CT None, MRI: 06/14/2022 FINDINGS: Mediastinal SUV mean is 2.2. Hepatic parenchyma SUV mean is 3.0. SKULL BASE AND NECK: Focal region of FDG tracer uptake within the posterior left thyroid lobe with a maximum SUV of 10.0. CHEST, MEDIASTINUM, AND HILAR REGION: No suspicious radiotracer activity. ABDOMEN AND PELVIS: There are 2 left inguinal enlarged lymph nodes measuring 1.3 and 1.1 cm short axis with a maximum SUV of 11.9 and 5.9 respectively. MUSCULOSKELETAL STRUCTURES: No suspicious radiotracer activity. OTHER CT: Encephalomalacia from prior right temporal occipital region infarct. Bilateral carotid bulb calcifications. Atherosclerotic calcification of the arterial vasculature. Coronary artery calcifica tions. Minimal bilateral gynecomastia. Nonobstructive left renal calculi. Fusiform aortic aneurysm at the aortic hiatus measuring up to 3.5 cm. Infrarenal proximal abdominal aorta broad neck saccular an eurysm measuring up to 2.3 cm. Just superior to this within the proximal abdominal aorta is a possibl e chronic dissection. Additionally distal abdominal aortic fusiform aneurysm measuring up to 3.4 cm. Surgical changes from left abdominal hernia repair. Scattered distal colonic diverticulosis without e vidence for acute diverticulitis. Calcification granuloma within the left midlung. Linear scarring or atelectasis within the lingula. Dependent right lower lobe subsegmental atelectasis. Multilevel dege nerative changes of visualized spine. Mild bilateral osteoarthritic changes of both hips. IMPRESSION: 1. There are enlarged 2 left inguinal lymph nodes with radiotracer uptake probably representing meta static disease. Additional focal region of radiotracer uptake within the posterior left thyroid lobe. May represent metastatic disease versus other etiologies. Thyroid ultrasound is recommended. No othe r suspicious radiotracer uptake identified. 2. Fusiform aneurysmal dilatation of the abdominal aorta at the aortic hiatus measuring up to 3.4 cm . Infrarenal proximal abdominal aortic saccular aneurysm measuring up to 2.3 cm. Just superior to thi s within the proximal abdominal aorta is a possible chronic aortic dissection. Additional fusiform di stal abdominal aortic aneurysm measuring up to 3.4 cm. Consider further evaluation with CTA abdomen a nd pelvis and vascular surgical consultation. [facility], , 04/05/2024 10:51 AM
== END | disposition home or self-care (01) ==
LOC: RADPETMAIN 08:40
PROVIDERS: ATTEND Internal Medicine Hematology & Oncology
DX: C43.8 Malignant melanoma of overlapping sites of skin (principal); I71.40 Abdominal aortic aneurysm, without rupture, unspecified; R59.0 Localized enlarged lymph nodes
CPT/HCPCS: 78816; A9552

== ENCOUNTER → 2024-04-10 | Outpatient (CLI) | payer MEDICARE ==
--- NOTE | 2024-04-10 13:14 | US ---
EXAMINATION TYPE: US thyroid st tissue head/neck DATE OF EXAM: 04/10/2024 COMPARISON: PET CT 04/04/2024 CLINICAL INDICATION: Male, 74 years old with history of C43.9 MELANOMA; Abn PET. TECHNIQUE: Grayscale and color Doppler imaging of the thyroid gland. FINDINGS: GLAND SIZE: Right Lobe: 4.0 x 1.6 x 1.7 cm Overall Parenchyma: homogeneous Left Lobe: 3.9 x 1.7 x 2.1 cm Overall Parenchyma: homogeneous Isthmus Thickness: 0.5 cm NODULES RIGHT: # of nodules measured on right: 1 1. 0.3 X 0.3 x 0.2 cm, lower medial, mixed cystic and solid, hypoechoic nodule, which is wider than tall, with smooth margins, without echogenic foci. TR 3. Prior size: No prior LEFT: # of nodules measured on left: 1 1. 1.7 X 1.2 x 1.8 cm, mid lateral, solid or almost completely solid, hypoechoic nodule, which is t aller than wide, with smooth margins, without echogenic foci. TR 5. Prior size: No prior ISTHMUS: # of nodules measured in the isthmus: 1 1. 0.5 X 0.5 x 0.5 cm mixed cystic and solid, hypoechoic nodule, which is wider than tall, with smo oth margins, without echogenic foci. TR 3. Prior size: No prior Bilateral neck scanned, no evidence of lymphadenopathy. IMPRESSION: 1. Left thyroid 1.8 cm TR 5 nodule which relates to abnormal PET/CT radiotracer activity. Fine-needl e aspiration is recommended. 2. Right thyroid lobe and isthmus TR 3 subcentimeter nodules. [facility], , 04/10/2024 1:11 PM
== END | disposition home or self-care (01) ==
LOC: RADUSWWP 12:35
PROVIDERS: ATTEND Internal Medicine Hematology & Oncology
DX: C43.9 Malignant melanoma of skin, unspecified (principal); E04.1 Nontoxic single thyroid nodule
CPT/HCPCS: 76536

== ENCOUNTER 2024-04-16 08:53 | Day surgery (SDC) | payer MEDICARE, SELFPAY ==
[2024-04-16] MEDS ORDERED: ALPRAZolam 0.25 MG TAB PO PRN (08:57)
[2024-04-16 09:52] VITALS: BP 130/84; PULSE 69; RESP 16; TEMP 98
== END 2024-04-16 09:52 | disposition home or self-care (01) ==
LOC: RADPROMAIN 08:53
PROVIDERS: ATTEND Internal Medicine Hematology & Oncology
DX: C49.22 Malignant neoplasm of connective and soft tissue of left lower limb, including hip (principal); Z53.8 Procedure and treatment not carried out for other reasons; I48.91 Unspecified atrial fibrillation; I10 Essential (primary) hypertension; E78.5 Hyperlipidemia, unspecified; M12.9 Arthropathy, unspecified; Z79.01 Long term (current) use of anticoagulants; Z79.899 Other long term (current) drug therapy; Z86.73 Personal history of transient ischemic attack (TIA), and cerebral infarction without residual deficits; Z88.8 Allergy status to other drugs, medicaments and biological substances

== ENCOUNTER 2024-04-24 09:00 | Day surgery (SDC) | payer MEDICARE ==
[2024-04-24 09:19] VITALS: PULSE 58; RESP 16; TEMP 98.1
--- NOTE | 2024-04-24 10:52 | US ---
EXAMINATION TYPE: US biopsy soft tissue/muscle DATE OF EXAM: 04/24/2024 10:16 AM COMPARISON: 04/04/2024 CLINICAL INDICATION:Male, 74 years old with history of C43.9MALIGNANT MELANOMA OF SKIN, UNSPECIFIED; , ATTENDING: Dr. Yvon Huertas PROCEDURE: Informed consent was obtained. The risks and benefits of the procedure were discussed with the patien t. The site was marked. Timeout procedure was performed Ultrasound imaging demonstrates left inguinal lymphadenopathy The patient was prepped, draped in the usual sterile fashion, and locally anesthetized with 1% lidoca ine. 2 x 18-gauge core needle biopsies were obtained.. Samples were sent to the pathology department for further analysis. Patient tolerated the procedure without incident and was sent home in stable c ondition. IMPRESSION: Successful ultrasound guided core biopsy left inguinal lymph node. [facility], , 04/24/2024 10:49 AM
[2024-04-24 11:42] VITALS: BP 154/66
== END 2024-04-24 10:40 | disposition home or self-care (01) ==
LOC: RADPROMAIN 09:00
PROVIDERS: ATTEND Internal Medicine Hematology & Oncology
DX: C43.59 Malignant melanoma of other part of trunk (principal)
CPT/HCPCS: 20206; 76942; 88305; 88341; 88342

== ENCOUNTER → 2024-04-24 | Outpatient (CLI) | payer MEDICARE | END | disposition home or self-care (01) | LOC: RADCTMAIN 08:52 | PROVIDERS: ATTEND Family Medicine | DX: Z53.9 Procedure and treatment not carried out, unspecified reason (principal) ==

== ENCOUNTER → 2024-06-13 | Outpatient (CLI) | payer MEDICARE ==
[2024-06-13 15:33] LABS: African American GFR (CKD) 43 (>60 ml/min/1.73 sqM); Blood Urea Nitrogen 34 mg/dL (9-20); Non-African American GFR(CKD) 37 (>60 ml/min/1.73 sqM)
--- NOTE | 2024-06-14 18:07 | CT ---
EXAMINATION TYPE: CT abdomen pelvis w con CT DLP: 657.0 mGycm, Automated exposure control for dose reduction was used. DATE OF EXAM: 06/13/2024 5:15 PM COMPARISON: PET CT 04/04/2024 CLINICAL INDICATION:Male, 74 years old with history of C43.9 MALIGNANT MELANOMA OF SKIN; Melanoma. TECHNIQUE: Standard CT of the abdomen and pelvis following the administration of 100 cc of Isovue 3 00 IV contrast material and oral contrast. Coronal and sagittal reformats were performed. FINDINGS: LOWER CHEST: Posterior dependent subsegmental atelectasis is noted. Linear atelectasis within the kali gula. Mild bilateral gynecomastia. Coronary artery calcifications. No pericardial effusion. ABDOMEN LIVER: Unremarkable GALLBLADDER AND BILE DUCTS: Unremarkable. PANCREAS: Mild fatty infiltration. SPLEEN: Small calcified granuloma. ADRENAL GLANDS: Unremarkable. KIDNEYS AND URETERS: No evidence of hydronephrosis. The kidneys enhance symmetrically. Left renal 1.7 cm cyst. Additional smaller cysts within the left kidney. Nonobstructive left renal calculi measurin g up to 2 mm. No right renal calculi. PELVIS BLADDER: Incompletely distended but grossly unremarkable. REPRODUCTIVE: Unremarkable. ABDOMEN & PELVIS STOMACH AND BOWEL: Stomach is unremarkable. Periampullary duodenal diverticula. Enteric contrast reac hes the ascending colon. No focal bowel wall thickening or surrounding inflammatory changes. Few scat tered sigmoid diverticula without evidence for acute diverticulitis. No evidence of bowel obstruction . PERITONEUM: No evidence of pneumoperitoneum or free fluid. VASCULATURE: Mild atherosclerotic calcifications are present throughout the abdominal aorta and its b ranches. Infrarenal fusiform abdominal aortic aneurysm measuring up to 3.2 cm (series 3, image 39). J ust below this is a saccular aneurysm off the right aspect of the abdominal aorta measuring up to 2.6 cm with some mural thrombus (series 3, image 42). Additional distal fusiform abdominal aortic aneury sm measuring up to 3.6 cm just above the iliac bifurcation (series 3, image 51). Additional short seg ment dissection of the aorta at the hiatus with intimal flap identified (series 3, image 29). There i s aneurysm dilatation at this level measuring up to 3.6 cm. The intimal flap measures approximately 2 .5 cm in length (series 7, image 45). The celiac axis and SMA are widely patent and emanate off the t rue lumen. The MINA is patent. Both renal arteries are patent with mild stenosis at their origins. The y originate off the true lumen. Pelvic phleboliths. MUSCULOSKELETAL: No acute osseous abnormalities. No aggressive osseous lesion. Degenerative changes o f the bilateral SI joints with left anterior bridging and fusion. Multilevel degenerative changes of the thoracolumbar spine with anterior osteophytosis. LYMPH NODES: There are 2 abnormal enlarged left inguinal lymph nodes identified each measuring 2.1 cm . These have increased in size from prior PET/CT. These both demonstrate FDG activity in prior PET/CT . No other lymphadenopathy identified. SOFT TISSUE/ABDOMINAL WALL: Postsurgical changes with surgical clips in the left inguinal region. IMPRESSION: 1. There are 2 enlarging abnormal left inguinal lymph nodes which demonstrated FDG activity on prior PET CT and are most consistent with metastasis. Prior biopsy 04/24/2024. No other evidence for metasta sis within the remaining visualized abdomen and pelvis. 2. Multi aneurysmal appearance of the abdominal aorta as described above with short segment dissectio n at the aortic hiatus. Consider vascular surgery consultation. [facility], , 06/14/2024 6:05 PM
== END | disposition home or self-care (01) ==
LOC: RADCTMAIN 14:58
PROVIDERS: ATTEND Internal Medicine Hematology & Oncology
DX: C43.9 Malignant melanoma of skin, unspecified (principal); I71.02 Dissection of abdominal aorta
CPT/HCPCS: 82565; 84520; 74177; 36415; Q9967